=== PATIENT | male | born 1945 | race Caucasian/White ===

== ENCOUNTER 2017-10-25 15:00 | Inpatient (IN) | payer MEDICARE, MEDICAID ==
[~2017-10-25] VITALS: Ht 180.3 cm; Wt 76.0 kg
[~2017-10-25 15:00] MED LIST: AMLO5TAB2 PO; CLOP75TA PO; HYDR12.56 PO; HYDR1TAB66 PO; LSNP20T PO; MELO-195 PO; MTP50T PO; NF-ESOM40C PO; ONDA8TAB2 PO; PRD5T PO; SIMV40TA4 PO
--- OUTSIDE RECORDS SUMMARY | 2017-10-25 15:06 | XMS REPORT | Continuity of Care Document ---
Author Author [facility] Organization [facility] Address Unknown Phone Unavailable Allergies Medications Problems Procedures Results Encounters ACCT No. Visit Date/Time Discharge Status Pt. Type Provider Facility Loc./Unit Complaint [id number] 02/13/2014 14:33:00 2013 23:59:59 CLS Outpatient [id number] 11/07/2013 14:09:00 2012 23:59:59 CLS Outpatient [id number] 04/07/2013 11:46:00 2012 23:59:59 CLS Outpatient
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
[2017-10-25] MEDS ORDERED: morphine INJ 10 MG/ML 1ML (SYR OR VIAL) IM STA (18:27)
[2017-10-25] MEDS ORDERED: RT-ALBUTEROL/IPRATROPIUM 3 ML (DUONEB) VIAL INH ONE (18:30)
[2017-10-25] MEDS ORDERED: PRD20T PO (18:35)
[2017-10-25] MEDS ORDERED: HYDR-3820 PO ×2 (18:35→18:49)
[2017-10-25] MEDS ORDERED: ADENOSINE 6 MG/2 ML (ADENOCARD) VIAL IV ONE (18:52)
[2017-10-25] MEDS ORDERED: morphine INJ 10 MG/ML 1ML (SYR OR VIAL) IVP STA (18:58)
[2017-10-25] MEDS ORDERED: DILTIAZEM 25 MG/5 ML INJ (CARDIZEM) VIAL IVP ONE (19:00)
[2017-10-25] MEDS ORDERED: DILTIAZEM DRIP 100 MG in SODIUM CHLORIDE (ADD-VANTAGE) 100 ML IV SCH (19:00)
[2017-10-25] MEDS ORDERED: DILTIAZEM 100 MG/VIAL (CARDIZEM) ADD-VANTAGE IV ONE (19:01)
[2017-10-25] MEDS ORDERED: DILTIAZEM 25 MG/5 ML INJ (CARDIZEM) VIAL ONE (19:02)
[2017-10-25] MEDS ORDERED: SODIUM CHLORIDE (ADD-VANTAGE) 100 ML IV ONE (19:02)
[2017-10-25] MEDS ORDERED: NS IV 1000 ML 1,000 ML ONE (19:02)
[2017-10-25 19:07] LABS: BASOPHILS % (AUTO) 0 % (0-10); EOSINOPHILS # (AUTO) 0.1 10^3/uL (0.0-0.3); EOSINOPHILS % (AUTO) 1 % (0-10); LYMPHOCYTES # (AUTO) 0.9 X 10^3 (1.0-4.0); LYMPHOCYTES % (AUTO) 9 % (12-44); MEAN CORPUSCULAR HEMOGLOBIN 24 PG (25-34); MEAN CORPUSCULAR HGB CONC 31 G/DL (32-36); MEAN CORPUSCULAR VOLUME 79 FL (80-99); MEAN PLATELET VOLUME 10.7 FL (7.4-10.4); MONOCYTES # (AUTO) 0.4 X 10^3 (0.0-1.0); MONOCYTES % (AUTO) 4 % (0-12); NEUTROPHILS # (AUTO) 9.4 X 10^3 (1.8-7.8); NEUTROPHILS % (AUTO) 86 % (42-75); PLATELET COUNT 262 10^3/uL (130-400); RED BLOOD COUNT 4.84 10^6/uL (4.35-5.85); RED CELL DISTRIBUTION WIDTH 17.8 % (10.0-14.5); WHITE BLOOD COUNT 10.9 10^3/uL (4.3-11.0)
[2017-10-25 19:14] LABS: PROTHROMBIN TIME PATIENT 13.4 SEC (12.2-14.7)
[2017-10-25 19:21] LABS: BAND NEUTROPHILS 0 %; BASOPHILS % (MANUAL) 0 %; EOSINOPHILS % (MANUAL) 0 %; LYMPHOCYTES % (MANUAL) 18 %; NEUTROPHILS % (MANUAL) 81 %
[2017-10-25 19:37] LABS: ALANINE AMINOTRANSFERASE 20 U/L (0-55); ALBUMIN 3.3 GM/DL (3.2-4.5); ANION GAP 10 MMOL/L (5-14); ASPARTATE AMINO TRANSFERASE 23 U/L (5-34); BILIRUBIN,TOTAL 0.4 MG/DL (0.1-1.0); BLOOD UREA NITROGEN 11 MG/DL (7-18); BUN/CREATININE RATIO 17; CALCIUM 8.8 MG/DL (8.5-10.1); CARBON DIOXIDE 26 MMOL/L (21-32); CHLORIDE 105 MMOL/L (98-107); CREATINE KINASE 55 U/L (30-200); CREATININE SERUM 0.65 MG/DL (0.60-1.30); GFR ESTIMATED > 60; GLUCOSE 106 MG/DL (70-105); MAGNESIUM 1.6 MG/DL (1.8-2.4); POTASSIUM 4.2 MMOL/L (3.6-5.0); SODIUM 141 MMOL/L (135-145)
--- NOTE | 2017-10-25 19:52 | Diagnostic Imaging Report ---
Indication: Shortness of breath and cough. Comparison: 02/13/2014. Findings: The heart size is stable. There is venous congestion. There are bibasilar infiltrates. There is no pleural effusion or pneumothorax. Mediastinum is unremarkable. Impression: Bibasilar infiltrates, suspect for pneumonia. Mild central pulmonary venous congestion. Dictated by: Dictated on workstation # [id number]
[2017-10-25 21:45] VITALS: BP 117/63
[2017-10-25] MEDS ORDERED: DILTIAZEM DRIP 100 MG/NS 100 ML IV SCH ×2 (21:45)
[2017-10-25] MEDS ORDERED: morphine INJ 4 MG/ML 1 ML (VIAL/SYRINGE) IV PRN (21:45)
[2017-10-25 22:00] VITALS: BP 129/62
[2017-10-25 22:15] VITALS: BP 116/74
[2017-10-25 22:30] VITALS: BP 107/58
[2017-10-25] MEDS: MAGNESIUM 1 GM/100 ML IVPB 100 ML IV SCH ×2 (22:32→23:30)
[2017-10-25 22:45] VITALS: BP 132/63
[2017-10-25 23:00] VITALS: BP 98/50
[2017-10-26] VITALS (14 sets, daily range): BP systolic 105–177; BP diastolic 49–87
[2017-10-26 05:39] LABS: BASOPHILS # (AUTO) 0.1 10^3/uL (0.0-0.1); BASOPHILS % (AUTO) 1 % (0-10); EOSINOPHILS # (AUTO) 0.2 10^3/uL (0.0-0.3); EOSINOPHILS % (AUTO) 2 % (0-10); LYMPHOCYTES # (AUTO) 1.5 X 10^3 (1.0-4.0); LYMPHOCYTES % (AUTO) 18 % (12-44); MEAN CORPUSCULAR HEMOGLOBIN 24 PG (25-34); MEAN CORPUSCULAR HGB CONC 30 G/DL (32-36); MEAN CORPUSCULAR VOLUME 82 FL (80-99); MEAN PLATELET VOLUME 11.4 FL (7.4-10.4); MONOCYTES % (AUTO) 12 % (0-12); NEUTROPHILS # (AUTO) 5.7 X 10^3 (1.8-7.8); NEUTROPHILS % (AUTO) 67 % (42-75); PLATELET COUNT 234 10^3/uL (130-400); RED BLOOD COUNT 4.16 10^6/uL (4.35-5.85); RED CELL DISTRIBUTION WIDTH 17.7 % (10.0-14.5); WHITE BLOOD COUNT 8.5 10^3/uL (4.3-11.0)
[2017-10-26] MEDS ORDERED: KCL 20 MEQ TAB (K-DUR) PO SCH (06:00)
[2017-10-26] MEDS ORDERED: POTASSIUM CL 10MEQ/50ML IVPB 50 ML IV SCH (06:00)
[2017-10-26] MEDS ORDERED: MAGNESIUM 1 GM/100 ML IVPB 100 ML IV SCH (06:00)
[2017-10-26 06:02] LABS: ALANINE AMINOTRANSFERASE 16 U/L (0-55); ALBUMIN 2.9 GM/DL (3.2-4.5); ANION GAP 8 MMOL/L (5-14); ASPARTATE AMINO TRANSFERASE 18 U/L (5-34); BILIRUBIN,TOTAL 0.4 MG/DL (0.1-1.0); BLOOD UREA NITROGEN 10 MG/DL (7-18); BUN/CREATININE RATIO 15; CALCIUM 8.3 MG/DL (8.5-10.1); CARBON DIOXIDE 29 MMOL/L (21-32); CHLORIDE 108 MMOL/L (98-107); CHOLESTEROL 113 MG/DL (< 200); CREATININE SERUM 0.68 MG/DL (0.60-1.30); DIRECT LDL 56 MG/DL (1-129); GFR ESTIMATED > 60; GLUCOSE 123 MG/DL (70-105); MAGNESIUM 2.2 MG/DL (1.8-2.4); PHOSPHORUS 3.9 MG/DL (2.3-4.7); POTASSIUM 4.8 MMOL/L (3.6-5.0); SODIUM 145 MMOL/L (135-145); TRIGLYCERIDES 74 MG/DL (<150); VLDL CHOLESTEROL 15 MG/DL (5-40)
[2017-10-26] MEDS: NS IV 1000 ML 1,000 ML IV SCH ×3 (06:02→22:02)
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
[2017-10-26] MEDS: PANTOPRAZOLE 40 MG (PROTONIX) TAB PO SCH (06:36)
[2017-10-26] MEDS ORDERED: INFLUENZA TRIvalent 2017-2018 0.5 ML/45 MCG SYR IM ONE (07:15)
[2017-10-26] MEDS ORDERED: MELO15TA39 PO (07:32)
[2017-10-26] MEDS ORDERED: PRAV40TA2 PO (07:32)
[2017-10-26] MEDS ORDERED: LISI-552 PO (07:32)
[2017-10-26] MEDS ORDERED: PRED5TAB PO (07:32)
[2017-10-26] MEDS ORDERED: NF-ESOM40C PO (07:32)
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
[2017-10-26] MEDS ORDERED: CLOP75TA28 PO (08:22)
[2017-10-26] MEDS ORDERED: HYDR12.5 PO (08:22)
[2017-10-26] MEDS ORDERED: AMLO5TAB2 PO (08:22)
[2017-10-26] MEDS ORDERED: MORP-33 PO (08:22)
[2017-10-26] MEDS ORDERED: METO50TA15 PO (08:22)
[2017-10-26] MEDS ORDERED: IPRA4AER INH (08:22)
[2017-10-26] MEDS ORDERED: HYDR-3820 PO (08:22)
[2017-10-26] MEDS: APIXABAN 5 MG (ELIQUIS) TABLET PO SCH ×2 (09:15→21:08)
[2017-10-26] MEDS: HYDROcodone/APAP 10 MG/325 MG (LORTAB) TAB PO PRN ×2 (09:15→16:41)
--- NOTE | 2017-10-26 09:23 | Diagnostic Imaging Report ---
EXAMINATION: Portable upright radiograph of the chest. INDICATION: Atrial fibrillation. FINDINGS: The lungs appear clear of focal infiltrate. There is unchanged chronic appearing interstitial thickening. The heart size is normal. No significant effusion. No pneumothorax. The mediastinum and bella appear unremarkable. There is internal fixation hardware projecting over the mid upper chest, probably fixating the sternum. IMPRESSION: No acute process. Dictated by: Dictated on workstation # [id number]
[2017-10-26] MEDS ORDERED: IOHEXOL 350 MG/ML 100 ML (OMNIPAQUE 350) VIAL IV ONE (09:45)
[2017-10-26] MEDS ORDERED: NS 100 ML (IVPB) BAG IV ONE (09:45)
--- NOTE | 2017-10-26 11:58 | Consultation-Cardiology ---
HPI-Cardiology Cardiology Consultation: Date of Consultation 10/26/17 Date of Admission Attending Physician Genet Alvarado MD Admitting Physician No,Local Physician Consulting Physician Katherine KITCHEN MD HPI: Time Seen by Provider: 12:00 Chief Complaint: Atrial fibrillation This is a 72-year-old gentleman who does not have any known past cardiac history. He has history of rheumatoid arthritis. He went to his physician for medication refill and was found to be in atrial fibrillation with rapid ventricular rate. The patient denies any significant symptoms including palpitations, chest pain, shortness of breath, syncope or near syncope. He did complain of joint pains which is secondary to his rheumatoid arthritis. Review of Systems-Cardiology Review of Systems Constitutional: No As described under HPI, No no symptoms reported, No chills, No fever, No lightheadedness, No malaise, No tiredness, No weight loss, No weight gain, No other Eyes: No As described under HPI, No no symptoms reported, No blindness, No blurred vision, No contact lenses, No drainage, No decreased acuity, No foreign body sensation, No glasses, No inflammation, No pain, No photophobia, No previous injury, No shadows, No tunnel vision, No other, No vision change Ears/Nose/Throat: No As described under HPI, No no symptoms reported, No chronic hearing loss, No epistaxis, No ear discharge, No ear pain, No loose teeth, No mouth pain, No mouth swelling, No nasal drainage, No nose pain, No recent hearing loss, No throat pain, No throat swelling, No ulcerations, No other Respiratory: No no symptoms reported, No As described under HPI, No cough, No orthopnea, No shortness of breath, No SOB with excertion, No SOB at rest, No stridor, No wheezing, No other Cardiovascular: irregular heart rate Gastrointestinal: No no symptoms reported, No As described under HPI, No abdomen distended, No abdominal pain, No blood streaked bowels, No constipation , No diarrhea, No difficulty swallowing, No nausea, No poor appetite, No poor fluid intake, No rectal bleeding, No vomiting, No other, No nausea/vomiting/ diarrhea, No stool coloration changes Genitourinary: No no symptoms reported, No As described under HPI, No burning, No dysuria, No discharge, No frequency, No flank pain, No hematuria, No incontinence, No pain, No urgency, No other, No urine frequency changes, No urine coloration changes Musculoskeletal: joint pain Skin: No no symptoms reported, No As described under HPI, No change in color, No change in hair/nails, No dryness, No lesions, No lumps, No rash, No other, No skin related problems, No ulcerations, No rash on exposed areas, No ulcerations on exposed areas Psychiatric/Neurological: No no symptoms reported, No As described under HPI, No anxiety, No depression, No emotional problems, No headache, No numbness, No pre-existing deficit, No seizure, No tingling, No tremors, No weakness, No other , No focal weakness, No syncope Hematologic: No no symptoms reported, No As described under HPI, No anemia, No blood clots, No easy bleeding, No easy bruising, No swollen glands, No other, No bleeding abnormalities All Other Systems Reviewed Negative Unless Noted: Yes (Negative excepted noted.) YJE-Raomzk-Inpmcg Hx Patient Social History Alcohol Use: Denies Use Recreational Drug Use: No Smoking Status: Current Everyday Smoker Type Used: Cigarettes Recent Foreign Travel: No Recent Infectious Disease Expo: No Hospitalization with Isolation: Denies Physical Abuse Screen: No Sexual Abuse: No Immunizations Up To Date Tetanus Booster (TDap): Unknown Past Medical History PMH As described under Assessment. Allergies and Home Medications Allergies Coded Allergies: No Known Drug Allergies (Unverified , 02/13/13) Home Medications Albuterol/Ipratropium 4 Gm Aero, 1 PUFF INH QID PRN for SHORTNESS OF BREATH, ( Reported) Amlodipine Besylate 5 Mg Tablet, 5 MG PO DAILY, (Reported) LAST FILLED #90 07-05-17 Clopidogrel Bisulfate 75 Mg Tablet, 75 MG PO DAILY, (Reported) LAST FILLED #90 07-05-17 Esomeprazole Magnesium 40 Mg Cap, 40 MG PO DAILY, (Reported) Hydrochlorothiazide 12.5 Mg Capsule, 12.5 MG PO DAILY, (Reported) LAST FILLED #90 07-09-17 Hydrocodone/Acetaminophen 1 Each Tablet, 1 TAB PO TID PRN for PAIN-MODERATE, ( Reported) LAST FILLED #90 08-30-17 Lisinopril 20 Mg Tablet, 20 MG PO DAILY, (Reported) Meloxicam 15 Mg Tablet, 15 MG PO DAILY, (Reported) Metoprolol Tartrate 50 Mg Tablet, 50 MG PO BID, (Reported) LAST FILLED #180 07-12-17 Morphine Sulfate 15 Mg Tablet.er, 15 MG PO BID, (Reported) LAST FILLED #60 08-31-17 Pravastatin Sodium 40 Mg Tablet, 40 MG PO DAILY, (Reported) Prednisone 5 Mg Tablet, 5 MG PO DAILY, (Reported) Physical Exam-Cardiology Physical Exam Vital Signs/I&O Vital Sign - Last 12Hours 10/26/17 10/26/17 10/26/17 10/26/17 02:00 03:00 04:00 04:00 Temp 97.9 Pulse 56 61 Resp 15 13 B/P (MAP) 111/60 (77) 106/52 (70) Pulse Ox 94 94 97 O2 Delivery Nasal Cannula Nasal Cannula Nasal Cannula O2 Flow Rate 3.00 3.00 3.00 10/26/17 10/26/17 10/26/17 10/26/17 04:00 05:00 06:00 07:00 Pulse 61 64 60 60 Resp 18 17 16 B/P (MAP) 116/62 (80) 120/66 (84) 116/72 (87) Pulse Ox 94 94 95 O2 Delivery Nasal Cannula Nasal Cannula Nasal Cannula O2 Flow Rate 3.00 3.00 3.00 10/26/17 10/26/17 10/26/17 10/26/17 07:00 08:00 08:00 09:00 Pulse 64 67 69 Resp 19 15 14 B/P (MAP) 123/84 (97) 129/74 (92) 153/79 (103) Pulse Ox 94 97 95 94 O2 Delivery Nasal Cannula Nasal Cannula Nasal Cannula Nasal Cannula O2 Flow Rate 3.00 3.00 3.00 3.00 10/26/17 10/26/17 10/26/17 09:50 09:50 09:55 Temp 96.0 96.0 Pulse 85 Resp 22 B/P (MAP) 166/87 (113) Pulse Ox 97 95 O2 Delivery Nasal Cannula Nasal Cannula O2 Flow Rate 3.00 3.00 Intake and Output 10/26/17 00:00 Intake Total 1200 ml Balance 1200 ml Capillary Refill : Less Than 3 Seconds Constitutional: No appears stated age, No AAO x 3, No apparent distress, No PERRL, No well-developed, No well-nourished, No other HEENT: No PERRL, No normal ENT inspection, No TMs normal, No pharynx normal, No scleral icterus (R), No scleral icterus (L), No pale conjunctivae (R), No pale conjunctivae (L), No photophobia, No TM abnormal (R), No TM abnormal (L), No pharyngeal erythema, No tonsillar exudate, No other, No discharge, No EOMI, No hearing is well preserved, No hard of hearing, No oral hygience is good, No ulceration, No xanthelasmas are seen Neck: No non-tender, No full range of motion, No supple, No normal inspection, No carotid bruit, No limited range of motion, No lymphadenopathy (R), No lymphadenopathy (L), No tender lateral, No tender midline, No thyromegaly, No other, No carotid pulses are 2 + bilaterally, No with good upstrokes Respiratory: No accessory muscle use, No respiratory distress, No chest tender , No chest expansion is symmetric, No chest is bilaterally symmetric, No lungs clear to percussion, No lungs clear to auscultation, No crackles, No rhonchi, No rales, No stridor, No wheezing, No pleural rub, No other Cardiovascular: regular rate-rhythm, S1 and S2 Gastrointestinal: No tender, No soft, No round, No distended, No pulsatile mass , No organomegaly, No guarding, No rebound, No tenderness, No hernia, No mass, No audible bowel sounds, No abnormal bowel sounds, No abdominal bruits, No spleenomegaly, No other Rectal: deferred Extremities: No normal range of motion, No non-tender, No normal inspection, No pedal edema, No calf tenderness, No normal capillary refill, No pelvis stable , No calf tenderness, No inflammation, No pedal edema, No slow capillary refill , No swelling, No other, No abrasion, No clubbing, No cyanosis, No ecchymosis, No laceration, No no lower extremity edema bilateral, No significant edema, No tenderness, No wound Neurologic/Psychiatric: No sausage grinder II-XII nml as tested, No no motor/sensory deficits, No alert, No normal mood/affect, No oriented x 3, No abnormal cerebellar tests, No abnormal sausage grinder II-XII, No abnormal gait, No aphasia, No EOM palsy, No facial droop, No motor weakness, No sensory deficit, No depressed affect, No disoriented x 3, No other, No grossly intact, No power is 5/5 both on sides Skin: No normal color, No warm/dry, No cyanosis, No cool, No diaphoresis, No damp, No ecchymosis, No jaundice, No mottled, No pallor, No rash, No tattoos/ piercings, No ulcerations, No rash on exposed areas, No ulcerations on exposed areas, No other Data Review Labs Laboratory Tests 10/25/17 18:57: White Blood Count 10.9, Red Blood Count 4.84, Hemoglobin 11.7L, Hematocrit 38L, Mean Corpuscular Volume 79L, Mean Corpuscular Hemoglobin 24L, Mean Corpuscular Hemoglobin Concent 31L, Red Cell Distribution Width 17.8H, Platelet Count 262, Mean Platelet Volume 10.7H, Neutrophils (%) (Auto) 86H, Lymphocytes (%) (Auto) 9L, Monocytes (%) (Auto) 4, Eosinophils (%) (Auto) 1, Basophils (%) (Auto) 0, Neutrophils # (Auto) 9.4H, Lymphocytes # (Auto) 0.9L, Monocytes # (Auto) 0.4, Eosinophils # (Auto) 0.1, Basophils # (Auto) 0.0, Neutrophils % (Manual) 81, Lymphocytes % (Manual) 18, Monocytes % (Manual) 1, Eosinophils % (Manual) 0, Basophils % (Manual) 0, Band Neutrophils 0, Blood Morphology Comment NORMAL, Prothrombin Time 13.4, INR Comment 1.0, Activated Partial Thromboplast Time 30, Sodium Level 141, Potassium Level 4.2, Chloride Level 105, Carbon Dioxide Level 26, Anion Gap 10, Blood Urea Nitrogen 11, Creatinine 0.65, Estimat Glomerular Filtration Rate > 60, BUN/Creatinine Ratio 17, Glucose Level 106H, Calcium Level 8.8, Magnesium Level 1.6L, Total Bilirubin 0.4, Aspartate Amino Transf ( AST/SGOT) 23, Alanine Aminotransferase (ALT/SGPT) 20, Alkaline Phosphatase 48, Total Creatine Kinase 55, Creatine Kinase MB 1.6, Myoglobin 25.0, Troponin I < 0.30, Total Protein 7.0, Albumin 3.3 10/26/17 00:55: Troponin I < 0.30 10/26/17 05:00: White Blood Count 8.5, Red Blood Count 4.16L, Hemoglobin 10.1L, Hematocrit 34L, Mean Corpuscular Volume 82, Mean Corpuscular Hemoglobin 24L, Mean Corpuscular Hemoglobin Concent 30L, Red Cell Distribution Width 17.7H, Platelet Count 234, Mean Platelet Volume 11.4H, Neutrophils (%) (Auto) 67, Lymphocytes (%) (Auto) 18 , Monocytes (%) (Auto) 12, Eosinophils (%) (Auto) 2, Basophils (%) (Auto) 1, Neutrophils # (Auto) 5.7, Lymphocytes # (Auto) 1.5, Monocytes # (Auto) 1.0, Eosinophils # (Auto) 0.2, Basophils # (Auto) 0.1, Sodium Level 145, Potassium Level 4.8, Chloride Level 108H, Carbon Dioxide Level 29, Anion Gap 8, Blood Urea Nitrogen 10, Creatinine 0.68, Estimat Glomerular Filtration Rate > 60, BUN/ Creatinine Ratio 15, Glucose Level 123H, Calcium Level 8.3L, Magnesium Level 2.2 , Total Bilirubin 0.4, Aspartate Amino Transf (AST/SGOT) 18, Alanine Aminotransferase (ALT/SGPT) 16, Alkaline Phosphatase 42, Total Protein 6.0L, Albumin 2.9L, Phosphorus Level 3.9, Triglycerides Level 74, Cholesterol Level 113, LDL Cholesterol Direct 56, VLDL Cholesterol 15, HDL Cholesterol 35L ECG Impression ECG Initial ECG Impression: Atrial Fibrillation w/RVR A/P-Cardiology Assessment/Admission Diagnosis Atrial fibrillation with rapid ventricular rate. Rheumatoid arthritis Plan Eliquis started for stroke prevention. Cardizem given for rate control. Patient spontaneously converted to sinus rhythm. However EKG has not been done to confirm. However telemetry shows sinus rhythm. Echocardiogram pending. Rheumatoid arthritis: Deferred to primary team. Hypomagnesemia: IV medication being given. Thank you for your consultation. Please call me if you have any questions. Tamia Kitchen MD, FACP, FACC, FSCAI, FHRS, CCDS Interventional Cardiology Cardiac Electrophysiology Vascular Medicine and Endovascular Interventions Clinical Quality Measures DVT/VTE Risk/Contraindication: Risk Factor Score Per Nursin RFS Level Per Nursing on Admit: 3=High Katherine KITCHEN MD Oct 26, 2017 11:58 am
--- NOTE | 2017-10-26 12:29 | Diagnostic Imaging Report ---
PROCEDURE: CT chest with contrast only. TECHNIQUE: Multiple contiguous axial images were obtained through the chest after administration of intravenous contrast. INDICATION: Difficulty breathing. CONTRAST: 75 mL of Omnipaque 350 was administered intravenously. COMPARISON: 12/21/2012. FINDINGS: There is interstitial septal thickening seen, a minimal amount of fluid in the fissures, and a very minimal right pleural effusion, probably secondary to vascular congestion. There are background upper lobe predominant emphysematous changes. Right perihilar scarring is noted. There is a right upper lobe pulmonary nodule seen anteriorly at the level of the pulmonary trunk measuring 1.9 x 1.3 x 1.4 cm, new from the prior exam. There is also an irregular nodule in the anterior aspect of the right lung apex measuring 1.5 x 2.2 cm, also new from the previous exam. Pleural/parenchymal thickening in the lung apices posteriorly is again seen, minimally more prominent compared to the previous study. Scattered areas of scarring are also noted. There is a stable right paratracheal lymph node measuring 1.1 cm in size and a 1.4 cm intracarinal lymph node, also similar to the previous exam, with no definitive pathologic new lymphadenopathy seen. No axillary or hilar significantly enlarged lymph nodes are noted. The heart size is normal. No pericardial effusion. There are prominent coronary artery atherosclerotic calcifications seen. There is mild aneurysmal dilatation of the ascending aorta measuring 4 cm compared to 3.9 cm in 2013. No adrenal nodule is seen. Cholecystectomy clips are noted. The osseous structures demonstrate scoliosis around the upper lumbar spine level convex to the right with no suspicious destructive mass. IMPRESSION: 1. New nodules in the left upper lobe at the pulmonary trunk level and in the right lung apex anteriorly, concerning for early malignancy. The right apex nodule could be related to scarring. Evaluation with a PET/CT is recommended. 2. Upper lobe predominant emphysema. 3. Suggestion of mild interstitial pulmonary edema. 4. The findings were conveyed to Dr. Juarez at the time of dictation. Dictated by: Dictated on workstation # [id number]
[2017-10-26] MEDS ORDERED: CATHETER FLUSH 10 ML SYR IV PRN (13:30)
[2017-10-26] MEDS: meTOprolol TARTRATE 50 MG (LOPRESSOR) TAB PO SCH (21:08)
[2017-10-27] VITALS: BP 145/66
[2017-10-27] MEDS: HYDROcodone/APAP 10 MG/325 MG (LORTAB) TAB PO PRN ×2 (00:48→13:13)
[2017-10-27] MEDS ORDERED: RT-ALBUTEROL/IPRATROPIUM 3 ML (DUONEB) VIAL ONE (02:19)
[2017-10-27 04:00] VITALS: BP 157/87
[2017-10-27 05:31] LABS: BASOPHILS % (AUTO) 0 % (0-10); EOSINOPHILS # (AUTO) 0.3 10^3/uL (0.0-0.3); EOSINOPHILS % (AUTO) 3 % (0-10); LYMPHOCYTES # (AUTO) 1.2 X 10^3 (1.0-4.0); LYMPHOCYTES % (AUTO) 13 % (12-44); MEAN CORPUSCULAR HEMOGLOBIN 24 PG (25-34); MEAN CORPUSCULAR HGB CONC 28 G/DL (32-36); MEAN CORPUSCULAR VOLUME 84 FL (80-99); MEAN PLATELET VOLUME 10.7 FL (7.4-10.4); MONOCYTES # (AUTO) 0.9 X 10^3 (0.0-1.0); MONOCYTES % (AUTO) 9 % (0-12); NEUTROPHILS # (AUTO) 7.1 X 10^3 (1.8-7.8); NEUTROPHILS % (AUTO) 74 % (42-75); PLATELET COUNT 228 10^3/uL (130-400); RED CELL DISTRIBUTION WIDTH 17.6 % (10.0-14.5); WHITE BLOOD COUNT 9.5 10^3/uL (4.3-11.0)
[2017-10-27 05:50] LABS: ANION GAP 6 MMOL/L (5-14); BLOOD UREA NITROGEN 3 MG/DL (7-18); BUN/CREATININE RATIO 5; CALCIUM 7.7 MG/DL (8.5-10.1); CARBON DIOXIDE 29 MMOL/L (21-32); CHLORIDE 107 MMOL/L (98-107); CREATININE SERUM 0.55 MG/DL (0.60-1.30); GFR ESTIMATED > 60; GLUCOSE 110 MG/DL (70-105); MAGNESIUM 1.6 MG/DL (1.8-2.4); PHOSPHORUS 2.8 MG/DL (2.3-4.7); POTASSIUM 4.1 MMOL/L (3.6-5.0); SODIUM 142 MMOL/L (135-145)
[2017-10-27] MEDS: PANTOPRAZOLE 40 MG (PROTONIX) TAB PO SCH (06:12)
[2017-10-27] MEDS: NS IV 1000 ML 1,000 ML IV SCH (06:12)
[2017-10-27] MEDS ORDERED: RT-LEVALBUTEROL (XOPENEX) 1.25 MG/3 ML NEB NON-FORMULARY INH PRN (07:15)
--- NOTE | 2017-10-27 07:27 | Pulmonary Progress Note ---
Subjective Time Seen by Provider: 07:24 Subjective/Events-last exam No complications noted. Exam Exam Vital Signs Date Time Temp Pulse Resp B/P (MAP) Pulse Ox O2 Delivery O2 Flow Rate FiO2 10/27/17 04:00 98.4 84 19 157/87 (110) 97 Nasal Cannula 3.00 10/27/17 03:08 85 95 32 10/27/17 02:29 95 Nasal Cannula 3.00 10/27/17 01:00 75 10/27/17 00:00 98.3 81 22 145/66 (92) 94 Nasal Cannula 3.00 10/26/17 20:55 97.8 81 22 164/82 (109) 93 Nasal Cannula 3.00 10/26/17 20:00 Nasal Cannula 3.00 10/26/17 19:00 89 10/26/17 17:12 96.4 10/26/17 16:54 96.4 80 24 177/77 (110) 95 Nasal Cannula 3.00 10/26/17 16:41 98.2 10/26/17 12:00 98.2 76 24 160/80 (106) 95 Nasal Cannula 3.00 10/26/17 09:50 96.0 85 22 166/87 (113) 95 Nasal Cannula 3.00 10/26/17 09:50 97 Nasal Cannula 3.00 10/26/17 09:00 69 14 153/79 (103) 94 Nasal Cannula 3.00 10/26/17 08:00 67 15 129/74 (92) 95 Nasal Cannula 3.00 10/26/17 08:00 97 Nasal Cannula 3.00 I & O 10/27/17 07:00 Intake Total 3668 ml Output Total 525 ml Balance 3143 ml General Appearance: No Apparent Distress, Chronically ill HEENT: PERRL/EOMI, Pharynx Normal Neck: Normal Inspection, Supple Respiratory: Crackles, Decreased Breath Sounds, Respiratory Distress (patient is noted to be mildly SOA on exam (patient continues to deny SOA). States he has an inhaler and neb tx's at home, but did not bring the inhaler with him. Denies previous dx of COPD, but does have a long h/o smoking.), Rhonci, Wheezing Cardiovascular: No Edema, No Murmur, Normal Peripheral Pulses, Tachycardia Capillary Refill: Less Than 3 Seconds Gastrointestinal: non tender, soft, no organomegaly, no pulsatile mass Extremity: Normal Capillary Refill, Other (bilateral hands TTP without ecchymosis. enlargement of the MCP joints and PIP joints of the bilateral hands without ecchymosis or erythema. TTP bilaterally. Limited range of motion of the bilateral hands noted.) Neurologic/Psychiatric: Alert, Oriented x3, No Motor/Sensory Deficits, Normal Mood/Affect Skin: Normal Color, Warm/Dry Results Lab Laboratory Tests 10/25/17 18:57 10/26/17 05:00 10/27/17 05:20 Assessment/Plan Assessment/Plan Lung Mass r/o cancer -Check out patient PET scan -Pt is on eliquis for Afib COPD hx - currently baseline -Continue SVNS -evaluate for home oxygen Bilateral pulmonary infiltrates probably chronic ILD doubt pneumonia -No Abx needed at this time Afib -cardiology consulted -Albuterol txs seem to put pt in afib Current tobacco use -education Arthritis/chronic pain Anemia -Monitor Labs and radiology reviewed. I will have RN make pt an appt in my office for 1- 2wks. 233 Clinical Quality Measures DVT/VTE Risk/Contraindication: Risk Factor Score Per Nursin RFS Level Per Nursing on Admit: 3=High TAVO GUALLPA DO Oct 27, 2017 07:27
[2017-10-27 07:54] VITALS: BP 152/76
[2017-10-27] MEDS: meTOprolol TARTRATE 50 MG (LOPRESSOR) TAB PO SCH (08:41)
[2017-10-27] MEDS: APIXABAN 5 MG (ELIQUIS) TABLET PO SCH (08:41)
--- NOTE | 2017-10-27 08:56 | Diagnostic Imaging Report ---
INDICATION: Atrial fibrillation and COPD. PA chest obtained at 4:55 a.m. and compared with yesterday. FINDINGS: The heart is normal in size. There is hyperinflation compatible with COPD. There is increasing bibasilar infiltrate. There is no pneumothorax or pleural fluid. IMPRESSION: Underlying COPD changes. Increasing bibasilar infiltrates compared to the prior study of yesterday. Dictated by: Dictated on workstation # [id number]
[2017-10-27] MEDS ORDERED: lisINopril 20 MG (ZESTRIL) TAB PO SCH (09:00)
[2017-10-27] MEDS ORDERED: DILTIAZEM 120 MG (CARDIZEM CD) CAP PO SCH (09:00)
[2017-10-27] MEDS ORDERED: RT-LEVALBUTEROL (XOPENEX) 1.25 MG/3 ML NEB NON-FORMULARY INH SCH (09:00)
[2017-10-27] MEDS ORDERED: PRED10TA22 PO (09:45)
[2017-10-27] MEDS ORDERED: MORP-33 PO (09:45)
[2017-10-27] MEDS ORDERED: APIX5TAB PO (09:45)
[2017-10-27] MEDS ORDERED: HYDR-3820 PO (09:45)
[2017-10-27] MEDS ORDERED: INFLUENZA TRIvalent 2017-2018 0.5 ML/45 MCG SYR IM ONE (11:31)
[2017-10-27 12:00] VITALS: BP 154/79
--- NOTE | 2017-10-27 12:02 | Cardiology Progress Note ---
Cardiology SOAP Progress Note Subjective: Mild shortness of breath. Objective: I&O/Vital Signs Vital Sign - Last 12Hours 10/27/17 10/27/17 10/27/17 10/27/17 01:00 02:29 03:08 04:00 Temp 98.4 Pulse 75 85 84 Resp 19 B/P (MAP) 157/87 (110) Pulse Ox 95 95 97 O2 Delivery Nasal Cannula Nasal Cannula O2 Flow Rate 3.00 3.00 FiO2 32 10/27/17 10/27/17 10/27/17 07:54 08:00 09:17 Temp 98.4 Pulse 78 Resp 22 B/P (MAP) 152/76 (101) Pulse Ox 91 77 O2 Delivery High Flow N/C Nasal Cannula Room Air O2 Flow Rate 3.00 3.00 Intake and Output 10/27/17 00:00 Intake Total 2568 ml Output Total 525 ml Balance 2043 ml Weight (Pounds): 167 Weight (Ounces): 8.0 Weight (Calculated Kilograms): [id number] Constitutional: No appears stated age, No AAO x 3, No apparent distress, No PERRL, No well-developed, No well-nourished, No other Respiratory: No accessory muscle use, No respiratory distress, No chest tender , No chest expansion is symmetric, No chest is bilaterally symmetric, No lungs clear to percussion, No lungs clear to auscultation, No crackles, No rhonchi, No rales, No stridor, No wheezing, No pleural rub, other (coarse bilateral breathing) Cardiovascular: regular rate-rhythm, S1 and S2 Gastrointestional: No tender, No soft, No round, No distended, No pulsatile mass, No organomegaly, No guarding, No rebound, No tenderness, No hernia, No mass, No audible bowel sounds, No abnormal bowel sounds, No abdominal bruits, No spleenomegaly, No other Extremities: No normal range of motion, No non-tender, No normal inspection, No pedal edema, No calf tenderness, No normal capillary refill, No pelvis stable , No calf tenderness, No inflammation, No pedal edema, No slow capillary refill , No swelling, No other, No abrasion, No clubbing, No cyanosis, No ecchymosis, No laceration, No no lower extremity edema bilateral, No significant edema, No tenderness, No wound Neurologic/Psychiatric: No retirement sales consultant II-XII nml as tested, No no motor/sensory deficits, No alert, No normal mood/affect, No oriented x 3, No abnormal cerebellar tests, No abnormal retirement sales consultant II-XII, No abnormal gait, No aphasia, No EOM palsy, No facial droop, No motor weakness, No sensory deficit, No depressed affect, No disoriented x 3, No other, No grossly intact, No power is 5/5 both on sides Skin: No normal color, No warm/dry, No cyanosis, No cool, No diaphoresis, No damp, No ecchymosis, No jaundice, No mottled, No pallor, No rash, No tattoos/ piercings, No ulcerations, No rash on exposed areas, No ulcerations on exposed areas, No other Results/Procedures: Labs Laboratory Tests 10/27/17 05:20: White Blood Count 9.5, Red Blood Count 4.20L, Hemoglobin 10.0L, Hematocrit 35L, Mean Corpuscular Volume 84, Mean Corpuscular Hemoglobin 24L, Mean Corpuscular Hemoglobin Concent 28L, Red Cell Distribution Width 17.6H, Platelet Count 228, Mean Platelet Volume 10.7H, Neutrophils (%) (Auto) 74, Lymphocytes (%) (Auto) 13 , Monocytes (%) (Auto) 9, Eosinophils (%) (Auto) 3, Basophils (%) (Auto) 0, Neutrophils # (Auto) 7.1, Lymphocytes # (Auto) 1.2, Monocytes # (Auto) 0.9, Eosinophils # (Auto) 0.3, Basophils # (Auto) 0.0, Sodium Level 142, Potassium Level 4.1, Chloride Level 107, Carbon Dioxide Level 29, Anion Gap 6, Blood Urea Nitrogen 3L, Creatinine 0.55L, Estimat Glomerular Filtration Rate > 60, BUN/ Creatinine Ratio 5, Glucose Level 110H, Calcium Level 7.7L, Phosphorus Level 2.8 , Magnesium Level 1.6L Microbiology 10/25/17 MRSA Screen - Final, Complete MRSA not isolated A/P: Assessment/Dx: Atrial fibrillation with rapid ventricular rate. Rheumatoid arthritis. Shortness of breath. Possible COPD Plan: Eliquis started for stroke prevention. Cardizem given for rate control. Patient spontaneously converted to sinus rhythm. Echocardiogram showed normal LVEF. Rheumatoid arthritis: Deferred to primary team. Hypomagnesemia: IV medication being given. Shortness of breath/COPD: Defer to primary team. However to complete his evaluation he may require nuclear stress test as an outpatient. I will follow-up as an outpatient in one to 2 weeks. Thank you for your consultation. Please call me if you have any questions. Tamia Kitchen MD, FACP, FACC, FSCAI, FHRS, CCDS Interventional Cardiology Cardiac Electrophysiology Vascular Medicine and Endovascular Interventions Katherine KITCHEN MD Oct 27, 2017 12:02
[2017-10-27 13:55] VITALS: BP 154/79
--- NOTE | 2017-10-27 15:16 | Discharge Summary-Hospitalist ---
Diagnosis/Chief Complaint Date of Admission Oct 25, 2017 at 20:15 Date of Discharge Oct 27, 2017 at 13:55 Admission Diagnosis a-fib with RVR Discharge Diagnosis (1) Atrial fibrillation with RVR Status: Acute Assessment & Plan: New onset Cardiology consulted appreciate recs Converted after cardizem started in ER [id number] score is 2- on Eliquis Echo revealed normal EF with grade 1 diastolic dysfunction and no visualized valvular abnormalities (2) Hypomagnesemia Assessment & Plan: Replaced on protocol (3) Normocytic anemia Assessment & Plan: Mild, at baseline Trend (4) Rheumatoid arthritis Assessment & Plan: Resume home pain meds Has appt for 11/17 with [facility], will provide pain meds to get through that visit (5) COPD (chronic obstructive pulmonary disease) Status: Acute Assessment & Plan: No home oxygen requirement MAT protocol No signs of acute exacerbation Will send home on Xopenex Q6 prn as albuterol precipitated a-fib (6) Chronic pain Status: Acute Assessment & Plan: On chronic narcotics Will resume home dose (7) Tobacco dependence Assessment & Plan: Recommended cessation (8) Lung nodule Assessment & Plan: Noted on CT Will follow up with Dr Juarez for outpatient PET I informed patient of the need to follow up for further evaluation (9) Prophylactic measure Assessment & Plan: Eliquis Saline lock Reg Diet Discharge Summary Consultations Cardiology- Dr Kitchen Discharge Physical Examination Allergies: Coded Allergies: No Known Drug Allergies (Unverified , 02/13/13) Vitals & I&Os Vital Signs Date Time Temp Pulse Resp B/P (MAP) Pulse Ox O2 Delivery O2 Flow Rate FiO2 10/27/17 13:55 80 20 154/79 93 High Flow N/C 5.00 10/27/17 13:44 98.2 10/27/17 03:08 32 Hospital Course Pt is a 72yoCM with a h/o COPD, RA who presented to the ER due to hand pain from his RA. He has been out of his pain medicines since his doctor quit practicing. He was given an albuterol treatment and went in to a-fib with RVR. He was admitted for a-fib and started on cardizem gtt. He quickly converted to sinus rhythm and was started on Eliquis for stroke ppx. He was continued on Metoprolol and Lisinopril and Cardizem was added for further rate control. After discharge I was called by pharmacy as his Eliquis was not covered. Patient did not wait at pharmacy for resolution. Xarelto was also not covered. I arranged for sample to be obtained through Dr. Kitchen's office. I attempted to call the patient multiple time on 10/27/17 and 10/28/17 leaving voicemails with no response. I also called his SKIL worker who has also not responded to my voicemails. I called the pharmacy to obtain any other numbers and they had one other on file which was disconnected when I attempted to call. I ultimately called the SKIL office to assist with contacting patient to pickers material handlers his samples and they reported that the SKIL worker's phone had been out and they would " tell him when they see him." At this time I have referred this to for assistance in facilitating a welfare check as our extensive efforts to contact him have been to no avail. Labs (last 24 hrs) Microbiology 10/25/17 MRSA Screen - Final, Complete MRSA not isolated Discharge Home Medications: Active Scripts Active Xopenex (Levalbuterol HCl) 1.25 Mg/3 Ml Vial.neb 1.25 Mg IH Q6H 30 Days Prednisone 10 Mg Tab.ds.pk 10 Mg PO DAILY Take 6 tabs(60mg)daily,decrease by 1 tab(10mg)every other day. Eliquis (Apixaban) 5 Mg Tablet 5 Mg PO BID Hydrocodon-Acetaminophn 10-325 (Hydrocodone/Acetaminophen) 1 Each Tablet 1 Tab PO TID PRN LAST FILLED #90 08-30-17 Morphine Sulfate ER (Morphine Sulfate) 15 Mg Tablet.er 15 Mg PO BID LAST FILLED #60 08-31-17 Reported Combivent Respimat Inhal [place] (Albuterol/Ipratropium) 4 Gm Aero 1 Puff INH QID PRN Metoprolol Tartrate 50 Mg Tablet 50 Mg PO BID LAST FILLED #180 07-12-17 Lisinopril 20 Mg Tablet 20 Mg PO DAILY Nexium (Esomeprazole Magnesium) 40 Mg Cap 40 Mg PO DAILY Meloxicam 15 Mg Tablet 15 Mg PO DAILY Pravastatin Sodium 40 Mg Tablet 40 Mg PO DAILY Instructions to patient/family Please see electronic discharge instructions given to patient. Clinical Quality Measures AMI/AHF: Ejection Fraction: Normal LVSF D/C Medications Addressed: Rico inhibitors, Beta gus DVT/VTE Risk/Contraindication: Risk Factor Score Per Nursin RFS Level Per Nursing on Admit: 3=High Problem Qualifiers (1) Rheumatoid arthritis: Rheumatoid arthritis location: hand Rheumatoid factor presence: unspecified presence Laterality: bilateral Qualified Codes: M06.9 - Rheumatoid arthritis , unspecified (2) COPD (chronic obstructive pulmonary disease): COPD type: unspecified COPD Qualified Codes: J44.9 - Chronic obstructive pulmonary disease, unspecified ROGER ROBBINS MD Oct 27, 2017 15:16
[2017-10-28] MEDS ORDERED: LEVA1.2527 IH ×2 (07:38→09:51)
[2017-10-28] MEDS ORDERED: DILT120C82 PO (10:16)
== END 2017-10-27 13:55 | disposition home or self-care (01) | DRG 309 ==
LOC: EDUNIT# 15:00 → ER 15:02 → ICU 20:15 → 4TH 10-26 09:35
PROVIDERS: ADMIT Family Medicine; ATTEND Family Medicine
DX: I48.91 Unspecified atrial fibrillation (principal); R91.8 Other nonspecific abnormal finding of lung field; J43.9 Emphysema, unspecified; J84.9 Interstitial pulmonary disease, unspecified; M06.9 Rheumatoid arthritis, unspecified; G89.29 Other chronic pain; Z23 Encounter for immunization; F17.210 Nicotine dependence, cigarettes, uncomplicated; D64.9 Anemia, unspecified; E83.42 Hypomagnesemia; Z79.01 Long term (current) use of anticoagulants; Z79.891 Long term (current) use of opiate analgesic
CPT/HCPCS: 36415; 71010; 71260; 80048; 80053; 80061; 82550; 82553; 83735; 83874; 84100; 84484; 85007; 85025; 85027; 85610; 85730; 87081; 93005; 93041; 93306; 94640; 94760

== ENCOUNTER 2018-01-10 14:56 | Inpatient (IN) | payer MEDICARE, MEDICAID ==
[~2018-01-10] VITALS: Ht 177.8 cm; Wt 65.9 kg
[2018-01-10] VITALS (7 sets, daily range): BP systolic 112–138; BP diastolic 62–77
[~2018-01-10 14:56] MED LIST changes: +APIX5TAB PO; +CLOP75TA28 PO; +DILT120C82 PO; +HYDR-3820 PO; +HYDR12.5 PO; +IPRA4AER INH; +LEVA1.2527 IH; +LISI-552 PO; +MELO15TA39 PO; +METO50TA15 PO; +MORP-33 PO; +PRAV40TA2 PO; +PRD20T PO; +PRED10TA22 PO; +PRED5TAB PO
[2018-01-10 15:42] LABS: BASOPHILS # (AUTO) 0.1 10^3/uL (0.0-0.1); BASOPHILS % (AUTO) 0 % (0-10); EOSINOPHILS % (AUTO) 0 % (0-10); HEMATOCRIT 32 % (40-54); HEMOGLOBIN 10.1 G/DL (13.3-17.7); LYMPHOCYTES # (AUTO) 1.5 X 10^3 (1.0-4.0); LYMPHOCYTES % (AUTO) 4 % (12-44); MEAN CORPUSCULAR HEMOGLOBIN 24 PG (25-34); MEAN CORPUSCULAR HGB CONC 32 G/DL (32-36); MEAN CORPUSCULAR VOLUME 77 FL (80-99); MEAN PLATELET VOLUME 10.1 FL (7.4-10.4); MONOCYTES # (AUTO) 1.5 X 10^3 (0.0-1.0); MONOCYTES % (AUTO) 4 % (0-12); NEUTROPHILS # (AUTO) 39.1 X 10^3 (1.8-7.8); NEUTROPHILS % (AUTO) 93 % (42-75); PLATELET COUNT 551 10^3/uL (130-400); RED BLOOD COUNT 4.18 10^6/uL (4.35-5.85); RED CELL DISTRIBUTION WIDTH 19.3 % (10.0-14.5)
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
[2018-01-10 15:51] LABS: WHITE BLOOD COUNT 42.2 10^3/uL (4.3-11.0)
[2018-01-10 15:54] LABS: ALANINE AMINOTRANSFERASE 14 U/L (0-55); ALBUMIN 2.3 GM/DL (3.2-4.5); ALKALINE PHOSPHATASE 64 U/L (40-136); BILIRUBIN,TOTAL 0.3 MG/DL (0.1-1.0); BUN/CREATININE RATIO 15; CALCIUM 8.1 MG/DL (8.5-10.1); CARBON DIOXIDE 26 MMOL/L (21-32); CHLORIDE 102 MMOL/L (98-107); CREATININE SERUM 0.62 MG/DL (0.60-1.30); GFR ESTIMATED > 60; GLUCOSE 145 MG/DL (70-105); POTASSIUM 3.7 MMOL/L (3.6-5.0); SODIUM 136 MMOL/L (135-145); TOTAL PROTEIN 5.8 GM/DL (6.4-8.2)
[2018-01-10] MEDS ORDERED: NS IV 1000 ML 1,000 ML IV SCH ×2 (16:00→16:45)
[2018-01-10 16:03] LABS: CLARITY,URINE CLEAR; COLOR,URINE AMBER; GLUCOSE, URINE (UA) NEGATIVE (NEGATIVE); KETONES,URINE NEGATIVE (NEGATIVE); LEUKOCYTE ESTERASE ,URINE 1+ (NEGATIVE); NITRITE,URINE NEGATIVE (NEGATIVE); PH,URINE 6 (5-9); PROTEIN,URINE 2+ (NEGATIVE); UROBILINOGEN,URINE 4 MG/DL (NORMAL)
[2018-01-10 16:14] LABS: BACTERIA,URINE NEGATIVE /HPF; BILIRUBIN,URINE 1+ (NEGATIVE); WBC,URINE 0-2 /HPF
[2018-01-10 16:14] LABS: BAND NEUTROPHILS 1 %; BASOPHILS % (MANUAL) 0 %; EOSINOPHILS % (MANUAL) 0 %; LYMPHOCYTES % (MANUAL) 4 %; MONOCYTES % (MANUAL) 4 %; NEUTROPHILS % (MANUAL) 91 %
[2018-01-10 16:15] LABS: ANISOCYTOSIS MARKED; POLYCHROMASIA SLIGHT
[2018-01-10] MEDS ORDERED: PIPERACILLIN SODIUM/TAZOBACTAM 4.5 GM in NS (IVPB) 100 ML IV ONE (16:15)
[2018-01-10] MEDS ORDERED: RT-ALBUTEROL/IPRATROPIUM 3 ML (DUONEB) VIAL INH ONE (16:15)
--- NOTE | 2018-01-10 16:16 | Diagnostic Imaging Report ---
INDICATION: Pain and chills. COMPARISON: 10/27/2017 FINDINGS: Upright portable view of the chest is obtained. Heart size is normal. The pulmonary vessels do not appear congested. There has been significant increase in bilateral basilar infiltrates. There may be a small left pleural effusion. The upper lungs are clear. There is no pneumothorax. IMPRESSION: Bilateral basilar infiltrates, particularly on the left with possible small left pleural effusion. Findings have shown moderate worsening since the prior exam. Dictated by: Dictated on workstation # [id number]
--- OUTSIDE RECORDS SUMMARY | 2018-01-10 16:21 | XMS REPORT | Continuity of Care Document ---
Author Author [facility] Organization [facility] Address Unknown Phone Unavailable Allergies Active Description Code Type Severity Reaction Onset Reported/Identified Relationship to Patient Clinical Status Yes No Known Drug Allergies [id number] Drug Allergy Unknown N/A 02/13/2013 Medications There is no data. Problems Date Dx Coded Attending Type Code Diagnosis Diagnosed By 02/14/2013 Ot 285.1 AC POSTHEMORRHAG ANEMIA 02/14/2013 Ot 787.01 NAUSEA WITH VOMITING 10/25/2017 Ot 780.79 OTH MALAISE FATIGUE 10/25/2017 Ot 786.2 COUGH 10/25/2017 Ot 793.19 OTHER NONSPECIFIC ABNORMAL FINDING OF DMITRIY 10/25/2017 Ot 492.8 EMPHYSEMA NEC 10/25/2017 Ot 574.20 CHOLELITHIASIS NOS 10/25/2017 Ot 793.19 OTHER NONSPECIFIC ABNORMAL FINDING OF DMITRIY 10/25/2017 Ot 574.20 CHOLELITHIASIS NOS 10/25/2017 MEAGAN PRUITT, PAULO Murphy Ot 562.10 DIVERTICULOSIS COLON (W/O MENT OF HEMORR 10/25/2017 MEAGAN PRUITT, PAULO Murphy Ot 787.3 FLATUL/ERUCTAT/GAS PAIN 10/25/2017 MEAGAN PRUITT, PAULO Murphy Ot 789.00 ABDOMINAL PAIN, UNSPECIFIED SITE 10/25/2017 GENESIS SANZ INSTRUCTOR PAINTING Ot 486 PNEUMONIA, ORGANISM NOS 10/25/2017 GENESIS SANZ INSTRUCTOR PAINTING Ot 496 CHR AIRWAY OBSTRUCT NEC 10/25/2017 GENESIS SANZ INSTRUCTOR PAINTING Ot 786.05 SHORTNESS OF BREATH 10/25/2017 GENESIS SANZ INSTRUCTOR PAINTING Ot 786.2 COUGH 10/25/2017 Ot 780.79 OTH MALAISE FATIGUE 10/25/2017 Ot 786.2 COUGH 10/25/2017 Ot 793.19 OTHER NONSPECIFIC ABNORMAL FINDING OF DMITRIY 10/25/2017 Ot 492.8 EMPHYSEMA NEC 10/25/2017 Ot 574.20 CHOLELITHIASIS NOS 10/25/2017 Ot 793.19 OTHER NONSPECIFIC ABNORMAL FINDING OF DMITRIY 10/25/2017 Ot 574.20 CHOLELITHIASIS NOS 10/25/2017 MEAGAN PRUITT, PAULO Murphy Ot 562.10 DIVERTICULOSIS COLON (W/O MENT OF HEMORR 10/25/2017 PAULO RHODES MD Ot 787.3 FLATUL/ERUCTAT/GAS PAIN 10/25/2017 PAULO RHODES MD Ot 789.00 ABDOMINAL PAIN, UNSPECIFIED SITE 10/25/2017 SANZGENESIS HUMPHREY INSTRUCTOR PAINTING Ot 486 PNEUMONIA, ORGANISM NOS 10/25/2017 GENESIS SANZ INSTRUCTOR PAINTING Ot 496 CHR AIRWAY OBSTRUCT NEC 10/25/2017 GENESIS SANZ INSTRUCTOR PAINTING Ot 786.05 SHORTNESS OF BREATH 10/25/2017 GENESIS SANZ Ot 786.2 COUGH 10/27/2017 ROGER ROBBINS MD Ot D64.9 ANEMIA, UNSPECIFIED 10/27/2017 ROGER ROBBINS MD Ot E83.42 HYPOMAGNESEMIA 10/27/2017 ROGER ROBBINS MD Ot F17.210 NICOTINE DEPENDENCE, CIGARETTES, UNCOMPL 10/27/2017 ROGER ROBBINS MD Ot G89.29 OTHER CHRONIC PAIN 10/27/2017 ROGER ROBBINS MD Ot I48.91 UNSPECIFIED ATRIAL FIBRILLATION 10/27/2017 ROGER ROBBINS MD Ot J43.9 EMPHYSEMA, UNSPECIFIED 10/27/2017 ROGER ROBBINS MD Ot J84.9 INTERSTITIAL PULMONARY DISEASE, UNSPECIF 10/27/2017 ROGER ROBBINS MD Ot M06.841 OTHER SPECIFIED RHEUMATOID ARTHRITIS, RI 10/27/2017 ROGER ROBBINS MD, Ot M06.842 OTHER SPECIFIED RHEUMATOID ARTHRITIS, LE 10/27/2017 ROGER ROBBINS MD, Ot M06.9 RHEUMATOID ARTHRITIS, UNSPECIFIED 10/27/2017 ROGER ROBBINS MD Ot R91.8 OTHER NONSPECIFIC ABNORMAL FINDING OF DMITRIY 10/27/2017 ROGER ROBBINS MD Ot Z23 ENCOUNTER FOR IMMUNIZATION 10/27/2017 ROGER ROBBINS MD Ot 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 10/27/2017 ROGER ROBBINS MD Ot Z79.891 USP (CURRENT) USE OF OPIATE ANALGE 12/03/2017 Ot 780.79 OTH MALAISE FATIGUE 12/03/2017 Ot 786.2 COUGH 12/03/2017 Ot 793.19 OTHER NONSPECIFIC ABNORMAL FINDING OF DMITRIY 12/03/2017 Ot 492.8 EMPHYSEMA NEC 12/03/2017 Ot 574.20 CHOLELITHIASIS NOS 12/03/2017 Ot 793.19 OTHER NONSPECIFIC ABNORMAL FINDING OF DMITRIY 12/03/2017 Ot 574.20 CHOLELITHIASIS NOS 12/03/2017 MEAGAN PRUITT, PAULO Murphy Ot 562.10 DIVERTICULOSIS COLON (W/O MENT OF HEMORR 12/03/2017 MEAGAN PRUITT, PAULO Murphy Ot 787.3 FLATUL/ERUCTAT/GAS PAIN 12/03/2017 MEAGAN PRUITT, PAULO Murphy Ot 789.00 ABDOMINAL PAIN, UNSPECIFIED SITE 12/03/2017 GENESIS SANZ Ot 486 PNEUMONIA, ORGANISM NOS 12/03/2017 GENESIS SANZ Ot 496 CHR AIRWAY OBSTRUCT NEC 12/03/2017 GENESIS SANZ Ot 786.05 SHORTNESS OF BREATH 12/03/2017 GENESIS SANZ Ot 786.2 COUGH Procedures There is no data. Results Test Result Range Complete blood count (CBC) with automated white blood cell (WBC) differential - 10/25/17 18:57 Blood leukocytes automated count (number/volume) 10.9 10*3/uL 4.3-11.0 Blood erythrocytes automated count (number/volume) 4.84 10*6/uL 4.35-5.85 Venous blood hemoglobin measurement (mass/volume) 11.7 g/dL 13.3-17.7 Blood hematocrit (volume fraction) 38 % 40-54 Automated erythrocyte mean corpuscular volume 79 [foz_us] 80-99 Automated erythrocyte mean corpuscular hemoglobin (mass per erythrocyte) 24 pg 25-34 Automated erythrocyte mean corpuscular hemoglobin concentration measurement ( mass/volume) 31 g/dL 32-36 Automated erythrocyte distribution width ratio 17.8 % 10.0-14.5 Automated blood platelet count (count/volume) 262 10*3/uL 130-400 Automated blood platelet mean volume measurement 10.7 [foz_us] 7.4-10.4 Automated blood neutrophils/100 leukocytes 86 % 42-75 Automated blood lymphocytes/100 leukocytes 9 % 12-44 Blood monocytes/100 leukocytes 4 % 0-12 Automated blood eosinophils/100 leukocytes 1 % 0-10 Automated blood basophils/100 leukocytes 0 % 0-10 Blood neutrophils automated count (number/volume) 9.4 10*3 1.8-7.8 Blood lymphocytes automated count (number/volume) 0.9 10*3 1.0-4.0 Blood monocytes automated count (number/volume) 0.4 10*3 0.0-1.0 Automated eosinophil count 0.1 10*3/uL 0.0-0.3 Automated blood basophil count (count/volume) 0.0 10*3/uL 0.0-0.1 PT panel in platelet poor plasma by coagulation assay - 10/25/17 18:57 Prothrombin time (PT) in platelet poor plasma by coagulation assay 13.4 s 12.2-14.7 INR in platelet poor plasma or blood by coagulation assay 1.0 0.8-1.4 Activated partial thromboplastin time (aPTT) in platelet poor plasma bycoagulation assay - 10/25/17 18:57 Activated partial thromboplastin time (aPTT) in platelet poor plasma bycoagulation assay 30 s 24-35 Blood manual differential performed detection - 10/25/17 18:57 Blood monocytes/100 leukocytes 1 % NRG Manual blood segmented neutrophils/100 leukocytes 81 % NRG Blood band neutrophils/100 leukocytes 0 % NRG Manual blood lymphocytes/100 leukocytes 18 % NRG Manual eosinophils/100 leukocytes in nose 0 % NRG Manual blood basophils/100 leukocytes 0 % NRG Blood erythrocyte morphology finding identification NORMAL [facility] Comprehensive metabolic panel - 10/25/17 18:57 Serum or plasma sodium measurement (moles/volume) 141 mmol/L 135-145 Serum or plasma potassium measurement (moles/volume) 4.2 mmol/L 3.6-5.0 Serum or plasma chloride measurement (moles/volume) 105 mmol/L 98-107 Carbon dioxide 26 mmol/L 21-32 Serum or plasma anion gap determination (moles/volume) 10 mmol/L 5-14 Serum or plasma urea nitrogen measurement (mass/volume) 11 mg/dL 7-18 Serum or plasma creatinine measurement (mass/volume) 0.65 mg/dL 0.60-1.30 Serum or plasma urea nitrogen/creatinine mass ratio 17 NRG Serum or plasma creatinine measurement with calculation of estimated glomerular filtration rate > NRG Serum or plasma glucose measurement (mass/volume) 106 mg/dL 70-105 Serum or plasma calcium measurement (mass/volume) 8.8 mg/dL 8.5-10.1 Serum or plasma total bilirubin measurement (mass/volume) 0.4 mg/dL 0.1-1.0 Serum or plasma alkaline phosphatase measurement (enzymatic activity/volume) 48 U/L 40-136 Serum or plasma aspartate aminotransferase measurement (enzymatic activity/ volume) 23 U/L 5-34 Serum or plasma alanine aminotransferase measurement (enzymatic activity/volume ) 20 U/L 0-55 Serum or plasma protein measurement (mass/volume) 7.0 g/dL 6.4-8.2 Serum or plasma albumin measurement (mass/volume) 3.3 g/dL 3.2-4.5 Magnesium - 10/25/17 18:57 Magnesium 1.6 mg/dL 1.8-2.4 Serum or plasma creatine kinase measurement (enzymatic activity/volume) - 10/25 18:57 Serum or plasma creatine kinase measurement (enzymatic activity/volume) 55 U/L 30-200 Serum or plasma creatine kinase MB measurement (enzymatic activity/volume) - 18:57 Serum or plasma creatine kinase MB measurement (enzymatic activity/volume) 1.6 ng/mL <6.6 Serum or plasma troponin i.cardiac measurement (mass/volume) - 10/25/17 18:57 Serum or plasma troponin i.cardiac measurement (mass/volume) < ng/ mL <0.30 Myoglobin, serum - 10/25/17 18:57 Myoglobin, serum 25.0 ng/mL 10.0-92.0 Methicillin resistant Staphylococcus aureus (MRSA) screening culture - 22:05 Methicillin resistant Staphylococcus aureus (MRSA) screening culture NEG NRG Serum or plasma troponin i.cardiac measurement (mass/volume) - 10/26/17 00:55 Serum or plasma troponin i.cardiac measurement (mass/volume) < ng/ mL <0.30 Complete blood count (CBC) with automated white blood cell (WBC) differential - 10/26/17 05:00 Blood leukocytes automated count (number/volume) 8.5 10*3/uL 4.3-11.0 Blood erythrocytes automated count (number/volume) 4.16 10*6/uL 4.35-5.85 Venous blood hemoglobin measurement (mass/volume) 10.1 g/dL 13.3-17.7 Blood hematocrit (volume fraction) 34 % 40-54 Automated erythrocyte mean corpuscular volume 82 [foz_us] 80-99 Automated erythrocyte mean corpuscular hemoglobin (mass per erythrocyte) 24 pg 25-34 Automated erythrocyte mean corpuscular hemoglobin concentration measurement ( mass/volume) 30 g/dL 32-36 Automated erythrocyte distribution width ratio 17.7 % 10.0-14.5 Automated blood platelet count (count/volume) 234 10*3/uL 130-400 Automated blood platelet mean volume measurement 11.4 [foz_us] 7.4-10.4 Automated blood neutrophils/100 leukocytes 67 % 42-75 Automated blood lymphocytes/100 leukocytes 18 % 12-44 Blood monocytes/100 leukocytes 12 % 0-12 Automated blood eosinophils/100 leukocytes 2 % 0-10 Automated blood basophils/100 leukocytes 1 % 0-10 Blood neutrophils automated count (number/volume) 5.7 10*3 1.8-7.8 Blood lymphocytes automated count (number/volume) 1.5 10*3 1.0-4.0 Blood monocytes automated count (number/volume) 1.0 10*3 0.0-1.0 Automated eosinophil count 0.2 10*3/uL 0.0-0.3 Automated blood basophil count (count/volume) 0.1 10*3/uL 0.0-0.1 Comprehensive metabolic panel - 10/26/17 05:00 Serum or plasma sodium measurement (moles/volume) 145 mmol/L 135-145 Serum or plasma potassium measurement (moles/volume) 4.8 mmol/L 3.6-5.0 Serum or plasma chloride measurement (moles/volume) 108 mmol/L 98-107 Carbon dioxide 29 mmol/L 21-32 Serum or plasma anion gap determination (moles/volume) 8 mmol/L 5-14 Serum or plasma urea nitrogen measurement (mass/volume) 10 mg/dL 7-18 Serum or plasma creatinine measurement (mass/volume) 0.68 mg/dL 0.60-1.30 Serum or plasma urea nitrogen/creatinine mass ratio 15 NRG Serum or plasma creatinine measurement with calculation of estimated glomerular filtration rate > NRG Serum or plasma glucose measurement (mass/volume) 123 mg/dL 70-105 Serum or plasma calcium measurement (mass/volume) 8.3 mg/dL 8.5-10.1 Serum or plasma total bilirubin measurement (mass/volume) 0.4 mg/dL 0.1-1.0 Serum or plasma alkaline phosphatase measurement (enzymatic activity/volume) 42 U/L 40-136 Serum or plasma aspartate aminotransferase measurement (enzymatic activity/ volume) 18 U/L 5-34 Serum or plasma alanine aminotransferase measurement (enzymatic activity/volume ) 16 U/L 0-55 Serum or plasma protein measurement (mass/volume) 6.0 g/dL 6.4-8.2 Serum or plasma albumin measurement (mass/volume) 2.9 g/dL 3.2-4.5 Serum or plasma phosphate measurement (mass/volume) - 10/26/17 05:00 Serum or plasma phosphate measurement (mass/volume) 3.9 mg/dL 2.3-4.7 Magnesium - 10/26/17 05:00 Magnesium 2.2 mg/dL 1.8-2.4 Lipid 1996 panel - 10/26/17 05:00 Serum or plasma triglyceride measurement (mass/volume) 74 mg/dL <150 Serum or plasma cholesterol measurement (mass/volume) 113 mg/dL < 200 Serum or plasma cholesterol in HDL measurement (mass/volume) 35 mg/ dL 40-60 Cholesterol in LDL [mass/volume] in serum or plasma by direct assay 56 mg/dL 1-129 Serum or plasma cholesterol in VLDL measurement (mass/volume) 15 mg/ dL 5-40 Complete blood count (CBC) with automated white blood cell (WBC) differential - 10/27/17 05:20 Blood leukocytes automated count (number/volume) 9.5 10*3/uL 4.3-11.0 Blood erythrocytes automated count (number/volume) 4.20 10*6/uL 4.35-5.85 Venous blood hemoglobin measurement (mass/volume) 10.0 g/dL 13.3-17.7 Blood hematocrit (volume fraction) 35 % 40-54 Automated erythrocyte mean corpuscular volume 84 [foz_us] 80-99 Automated erythrocyte mean corpuscular hemoglobin (mass per erythrocyte) 24 pg 25-34 Automated erythrocyte mean corpuscular hemoglobin concentration measurement ( mass/volume) 28 g/dL 32-36 Automated erythrocyte distribution width ratio 17.6 % 10.0-14.5 Automated blood platelet count (count/volume) 228 10*3/uL 130-400 Automated blood platelet mean volume measurement 10.7 [foz_us] 7.4-10.4 Automated blood neutrophils/100 leukocytes 74 % 42-75 Automated blood lymphocytes/100 leukocytes 13 % 12-44 Blood monocytes/100 leukocytes 9 % 0-12 Automated blood eosinophils/100 leukocytes 3 % 0-10 Automated blood basophils/100 leukocytes 0 % 0-10 Blood neutrophils automated count (number/volume) 7.1 10*3 1.8-7.8 Blood lymphocytes automated count (number/volume) 1.2 10*3 1.0-4.0 Blood monocytes automated count (number/volume) 0.9 10*3 0.0-1.0 Automated eosinophil count 0.3 10*3/uL 0.0-0.3 Automated blood basophil count (count/volume) 0.0 10*3/uL 0.0-0.1 Whole blood basic metabolic panel - 10/27/17 05:20 Serum or plasma sodium measurement (moles/volume) 142 mmol/L 135-145 Serum or plasma potassium measurement (moles/volume) 4.1 mmol/L 3.6-5.0 Serum or plasma chloride measurement (moles/volume) 107 mmol/L 98-107 Carbon dioxide 29 mmol/L 21-32 Serum or plasma anion gap determination (moles/volume) 6 mmol/L 5-14 Serum or plasma urea nitrogen measurement (mass/volume) 3 mg/dL 7-18 Serum or plasma creatinine measurement (mass/volume) 0.55 mg/dL 0.60-1.30 Serum or plasma urea nitrogen/creatinine mass ratio 5 NRG Serum or plasma creatinine measurement with calculation of estimated glomerular filtration rate > NRG Serum or plasma glucose measurement (mass/volume) 110 mg/dL 70-105 Serum or plasma calcium measurement (mass/volume) 7.7 mg/dL 8.5-10.1 Serum or plasma phosphate measurement (mass/volume) - 10/27/17 05:20 Serum or plasma phosphate measurement (mass/volume) 2.8 mg/dL 2.3-4.7 Magnesium - 10/27/17 05:20 Magnesium 1.6 mg/dL 1.8-2.4 Encounters ACCT No. Visit Date/Time Discharge Status Pt. Type Provider Facility Loc./Unit Complaint [id number] 12/07/2017 09:00:00 12/07/2017 23:59:59 CLS Preadmit TAVO GUALLPA DO M [facility] RAD LUNG MASS [id number] 12/06/2017 09:45:00 12/06/2017 23:59:59 CLS Preadmit PASCUAL BECKER APRN [facility] RT COPD [id number] 11/23/2017 13:09:00 11/23/2017 23:59:59 CLS Preadmit CHERRI PRUITT, BRIELLE Rodriguez [facility] RAD SCREENING [id number] 10/25/2017 20:15:00 10/27/2017 13:55:00 DIS Inpatient ROSENDO PRUITT, ROGER Murphy [facility] 4TH AFIB W RVR NEW ONSET, HYPOMAGNESEMIA,CHRONIC PX [id number] 02/13/2014 14:33:00 02/13/2014 23:59:59 CLS Outpatient GENESIS SANZP [facility] RAD COPD,SOA,COUGH [id number] 11/07/2013 14:09:00 11/07/2013 23:59:59 CLS Outpatient GENESIS SANZP [facility] RAD PNEUMONIA,COUGH, SOB [id number] 04/07/2013 11:46:00 04/07/2013 23:59:59 CLS Outpatient PAULO RHODES MD [facility] RAD ABD PAIN,DISTENTION [id number] 02/13/2013 14:21:00 Document Registration [id number] 01/02/2013 09:30:00 Document Registration [id number] 12/21/2012 08:42:00 Document Registration [id number] 12/13/2012 14:29:00 Document Registration
--- OUTSIDE RECORDS SUMMARY | 2018-01-10 16:38 | XMS REPORT | Continuity of Care Document ---
Author Author [facility] Organization [facility] Address Unknown Phone Unavailable Allergies Active Description Code Type Severity Reaction Onset Reported/Identified Relationship to Patient Clinical Status Yes No Known Drug Allergies [id number] Drug Allergy Unknown N/A 02/13/2013 Medications There [...] ABDOMINAL PAIN, UNSPECIFIED SITE 10/25/2017 GENESIS SANZ CUST[employer]S AND IMMIGRATION OFFICER Ot 486 PNEUMONIA, ORGANISM NOS 10/25/2017 GENESIS SANZ CUSTOMS AND IMMIGRATION OFFICER Ot 496 CHR AIRWAY OBSTRUCT NEC 10/25/2017 GENESIS SANZ CUST[employer]S AND IMMIGRATION OFFICER Ot 786.05 SHORTNESS OF BREATH 10/25/2017 GENESIS SANZ CUSTOMS AND IMMIGRATION OFFICER Ot 786.2 COUGH 10/25/2017 Ot 780.79 OTH [...] ABDOMINAL PAIN, UNSPECIFIED SITE 10/25/2017 SANZGENESIS HUMPHREY CUSTOMS AND IMMIGRATION OFFICER Ot 486 PNEUMONIA, ORGANISM NOS 10/25/2017 GENESIS SANZ CUSTOMS AND IMMIGRATION OFFICER Ot 496 CHR AIRWAY OBSTRUCT NEC 10/25/2017 GENESIS SANZ CUSTOMS AND IMMIGRATION OFFICER Ot 786.05 SHORTNESS OF BREATH 10/25/2017 GENESIS [...] IMMUNIZATION 10/27/2017 ROGER ROBBINS MD Ot Z79.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 Type Provider Facility Loc./Unit Complaint [id number] 12/07/2017 09:00:00 12/07/2017 23:59:59 CLS Preadmit TAVO GUALLPA DO M [facility] RAD LUNG MASS [id number] 12/06/2017 09:45:00 12/06/2017 23:59:59 CLS Preadmit PASCUAL BECKER APRN [facility] RT COPD [id number] 11/23/2017 13:09:00 11/23/2017 23:59:59 CLS Preadmit CHERRI PRUITT, BRIELLE Rodriguez [facility] RAD SCREENING [id number] 10/25/2017 20:15:00 10/27/2017 13:55:00 DIS Inpatient ROSENDO PRUITT, ROGER Murphy [facility] 4TH AFIB W RVR NEW ONSET, HYPOMAGNESEMIA,CHRONIC PX [id number] 02/13/2014 14:33:00 02/13/2014 23:59:59 CLS Outpatient GENESIS SANZP [facility] RAD COPD,SOA,COUGH [id number] 11/07/2013 14:09:00 11/07/2013 23:59:59 CLS Outpatient GENESIS SANZP [facility] RAD PNEUMONIA,COUGH, SOB [id number] 04/07/2013 11:46:00 04/07/2013 23:59:59 CLS Outpatient PAULO RHODES MD [facility] RAD ABD PAIN,DISTENTION [id number] 02/13/2013 14:21:00 Document Registration [id number] 01/02/2013 09:30:00 Document Registration [id number] 12/21/2012 08:42:00 Document Registration [id number] 12/13/2012 14:29:00 Document Registration
[2018-01-10 16:41] LABS: ABG BASE EXCESS 1.3 MMOL/L (-2.5-2.5); ABG OXYGEN SATURATION 94 % (94-100); ABG PCO2 44 MMHG (35-45); ABG PH 7.39 (7.37-7.43); ABG PO2 68 MMHG (79-93); ABG TCO2 27.2 MMOL/L (21.0-31.0)
[2018-01-10 16:42] LABS: INSPIRED O2 2L; PATIENT TEMP 98; VENTILATOR NO
[2018-01-10] MEDS ORDERED: NS IV PRN (18:00)
[2018-01-10] MEDS ORDERED: ACETAMINOPHEN 325 MG TABLET/CAPLET (TYLENOL) PO PRN (18:00)
[2018-01-10] MEDS ORDERED: INFLUENZA TRIvalent 2017-2018 0.5 ML/45 MCG SYR IM ONE ×2 (18:15→19:30)
[2018-01-10] MEDS: NS IV 1000 ML 1,000 ML IV SCH ×2 (18:20→23:09)
[2018-01-10] MEDS: PIPERACILLIN SODIUM/TAZOBACTAM 4.5 GM in NS (IVPB) 100 ML IV SCH (21:06)
[2018-01-11] VITALS (24 sets, daily range): BP systolic 120–156; BP diastolic 40–95
[2018-01-11] MEDS: NS IV 1000 ML 1,000 ML IV SCH ×5 (01:47→14:59)
[2018-01-11 04:28] LABS: BASOPHILS % (AUTO) 0 % (0-10); EOSINOPHILS # (AUTO) 0.2 10^3/uL (0.0-0.3); EOSINOPHILS % (AUTO) 1 % (0-10); HEMATOCRIT 32 % (40-54); HEMOGLOBIN 9.6 G/DL (13.3-17.7); LYMPHOCYTES # (AUTO) 1.5 X 10^3 (1.0-4.0); LYMPHOCYTES % (AUTO) 7 % (12-44); MEAN CORPUSCULAR HEMOGLOBIN 23 PG (25-34); MEAN CORPUSCULAR HGB CONC 30 G/DL (32-36); MEAN CORPUSCULAR VOLUME 79 FL (80-99); MEAN PLATELET VOLUME 10.1 FL (7.4-10.4); MONOCYTES % (AUTO) 5 % (0-12); NEUTROPHILS # (AUTO) 17.9 X 10^3 (1.8-7.8); NEUTROPHILS % (AUTO) 87 % (42-75); PLATELET COUNT 557 10^3/uL (130-400); RED CELL DISTRIBUTION WIDTH 19.5 % (10.0-14.5); WHITE BLOOD COUNT 20.6 10^3/uL (4.3-11.0)
[2018-01-11 04:56] LABS: ALANINE AMINOTRANSFERASE 14 U/L (0-55); ALBUMIN 2.1 GM/DL (3.2-4.5); ALKALINE PHOSPHATASE 58 U/L (40-136); BILIRUBIN,TOTAL 0.2 MG/DL (0.1-1.0); BUN/CREATININE RATIO 14; CALCIUM 7.7 MG/DL (8.5-10.1); CARBON DIOXIDE 24 MMOL/L (21-32); CHLORIDE 111 MMOL/L (98-107); CREATININE SERUM 0.58 MG/DL (0.60-1.30); GFR ESTIMATED > 60; GLUCOSE 91 MG/DL (70-105); POTASSIUM 3.9 MMOL/L (3.6-5.0); SODIUM 141 MMOL/L (135-145); TOTAL PROTEIN 5.4 GM/DL (6.4-8.2)
[2018-01-11] MEDS: PIPERACILLIN SODIUM/TAZOBACTAM 4.5 GM in NS (IVPB) 100 ML IV SCH ×3 (05:24→21:05)
--- NOTE | 2018-01-11 09:22 | History & Physicial (CHS) ---
HPI Attending Physician Gabby Olea DO [facility] [place] [place] Consult Date of Admission Jan 10, 2018 at 16:33 Home Medications Home Medications Reviewed patient Home Medication Reconciliation Form Allergies Coded Allergies: No Known Drug Allergies (Unverified , 02/13/13) [id number] Hx Patient Social History Alcohol Use: Denies Use Recreational Drug Use: No Smoking Status: Current Everyday Smoker Type Used: Cigarettes 2nd Hand Smoke Exposure: Yes Recent Foreign Travel: No Contact w/other who traveled: No Recent Hopitalizations: No Recent Infectious Disease Expo: No Physical Abuse Screen: No Sexual Abuse: No Immunizations Up To Date Tetanus Booster (TDap): Unknown Family Medical History Significant Family History: Cancer Family History: Patient reports no known family medical history. Physical Exam-(CHC) Physical Exam Vital Signs VS - Last 72 Hours, by Label 01/10/18 01/10/18 01/11/18 01/11/18 23:00 23:35 00:00 00:00 Temp 97.7 Pulse 93 85 Resp 23 14 B/P (MAP) 112/62 (79) 138/82 (100) Pulse Ox 91 93 94 O2 Delivery Nasal Cannula Nasal Cannula Nasal Cannula O2 Flow Rate 2.00 2.00 2.00 01/11/18 01/11/18 01/11/18 01/11/18 01:00 01:00 02:00 03:00 Pulse 91 90 92 91 Resp 30 28 26 B/P (MAP) 139/71 (93) 137/73 (94) 134/75 (94) Pulse Ox 93 92 93 O2 Delivery Nasal Cannula Nasal Cannula Nasal Cannula O2 Flow Rate 2.00 2.00 2.00 01/11/18 01/11/18 01/11/18 01/11/18 03:34 04:00 04:00 05:00 Temp 97.7 Pulse 92 96 Resp 25 23 B/P (MAP) 133/82 (99) 142/76 (98) Pulse Ox 96 93 90 O2 Delivery Nasal Cannula Nasal Cannula Nasal Cannula O2 Flow Rate 2.00 2.00 2.00 01/11/18 01/11/18 01/11/18 01/11/18 06:00 07:00 07:00 08:00 Pulse 93 101 103 96 Resp 28 35 28 B/P (MAP) 120/64 (82) 148/83 (104) 130/83 (99) Pulse Ox 91 90 96 O2 Delivery Nasal Cannula Nasal Cannula Nasal Cannula O2 Flow Rate 2.00 2.00 2.00 18 218 2//18 2 08:50 09:00 09:00 10:00 Temp 97.2 Pulse 102 95 Resp 24 24 B/P (MAP) 133/77 (95) 138/72 (94) Pulse Ox 91 94 O2 Delivery Nasal Cannula Nasal Cannula Nasal Cannula O2 Flow Rate 2.00 2.00 2.00 01/11/18 2/18 2/18 2 11:00 12:00 12:30 12:55 Temp 97.0 Pulse 90 91 Resp 24 22 B/P (MAP) 125/86 (99) 129/90 (103) Pulse Ox 93 92 O2 Delivery Nasal Cannula Nasal Cannula Nasal Cannula O2 Flow Rate 2.00 2.00 2.00 01/11/18 218 2// 2 13:00 13:00 14:00 15:00 Pulse 89 90 96 94 Resp 23 35 22 B/P (MAP) 135/79 (97) 147/95 (112) 152/80 (104) Pulse Ox 91 91 94 O2 Delivery Nasal Cannula Nasal Cannula Nasal Cannula O2 Flow Rate 2.00 2.00 2.00 01/11/18 2 2// 2 16:00 16:00 16:00 17:00 Temp 97.1 Pulse 98 90 Resp 24 23 B/P (MAP) 144/78 (100) 156/82 (106) Pulse Ox 98 94 O2 Delivery Nasal Cannula Nasal Cannula Nasal Cannula O2 Flow Rate 2.00 2.00 2.00 01/11/18 2/18 2/18 218 18:00 19:00 19:00 19:29 Pulse 97 94 94 Resp 25 30 B/P (MAP) 147/86 (106) 153/86 (108) Pulse Ox 90 94 92 O2 Delivery Nasal Cannula Nasal Cannula Nasal Cannula O2 Flow Rate 2.00 2.00 2.00 18 2//18 2//18 2/18 20:00 20:00 21:00 22:00 Temp 97.9 Pulse 92 89 92 Resp 29 20 22 B/P (MAP) 120/89 (99) 146/81 (102) 144/81 (102) Pulse Ox 91 93 89 O2 Delivery Nasal Cannula Nasal Cannula Nasal Cannula Nasal Cannula O2 Flow Rate 2.00 2.00 2.00 2.00 01/11/18 01/12/18 01/12/18 01/12/18 23:00 00:00 00:00 01:00 Temp 97.4 Pulse 79 76 76 Resp 24 23 38 B/P (MAP) 146/40 (75) 139/82 (101) 108/92 (97) Pulse Ox 89 95 93 O2 Delivery Nasal Cannula Nasal Cannula Nasal Cannula Nasal Cannula O2 Flow Rate 2.00 2.00 2.00 2.00 01/12/18 01/12/18 01/12/18 01/12/18 01:00 02:00 02:24 03:00 Pulse 76 81 85 Resp 25 28 B/P (MAP) 149/76 (100) 157/91 (113) Pulse Ox 89 89 87 O2 Delivery Nasal Cannula Nasal Cannula Nasal Cannula O2 Flow Rate 2.00 2.00 2.00 01/12/18 01/12/18 01/12/18 01/12/18 03:34 03:50 04:00 04:00 Temp 99.3 Pulse 90 90 87 Resp 30 25 20 B/P (MAP) 148/92 (110) Pulse Ox 96 94 98 O2 Delivery Nasal Cannula Vapotherm Vapotherm Vapotherm O2 Flow Rate 3.00 50.00 20.00 50.00 20.00 20.00 FiO2 50 01/12/18 01/12/18 01/12/18 01/12/18 05:00 06:00 07:00 07:00 Pulse 82 84 84 84 Resp 15 26 14 B/P (MAP) 144/77 (99) 138/91 (107) 128/67 (87) Pulse Ox 97 93 94 O2 Delivery Vapotherm Vapotherm Vapotherm O2 Flow Rate 50.00 50.00 50.00 20.00 20.00 20.00 01/12/18 01/12/18 01/12/18 01/12/18 08:00 08:30 08:30 09:00 Temp 98.2 Pulse 85 85 Resp 13 15 B/P (MAP) 128/67 (87) 109/78 (88) Pulse Ox 95 96 O2 Delivery Vapotherm Vapotherm Vapotherm O2 Flow Rate 50.00 20.00 50.00 20.00 20.00 FiO2 50 01/12/18 01/12/18 01/12/18 01/12/18 09:14 10:00 11:00 12:00 Pulse 82 75 65 Resp 10 13 12 B/P (MAP) 133/75 (94) 121/67 (85) 107/64 (78) Pulse Ox 93 96 94 93 O2 Delivery Vapotherm Vapotherm Vapotherm Vapotherm O2 Flow Rate 2.00 50.00 50.00 50.00 20.00 20.00 20.00 FiO2 50 01/12/18 01/12/18 01/12/18 01/12/18 12:25 12:45 13:00 13:00 Temp 97.3 Pulse 68 68 Resp 15 B/P (MAP) 103/67 (79) Pulse Ox 92 O2 Delivery Vapotherm Vapotherm O2 Flow Rate 20.00 50.00 20.00 FiO2 50 01/12/18 01/12/18 01/12/18 01/12/18 14:00 15:00 15:35 16:00 Pulse 66 61 58 Resp 13 14 11 B/P (MAP) 107/70 (82) 100/55 (70) 101/53 (69) Pulse Ox 94 93 93 94 O2 Delivery Vapotherm Vapotherm Vapotherm Vapotherm O2 Flow Rate 50.00 50.00 20.00 50.00 20.00 20.00 20.00 FiO2 50 01/12/01/12/1801/12/01/12/18 16:15 16:15 17:00 18:00 Temp 98.8 Pulse 65 62 Resp 10 28 B/P (MAP) 107/50 (69) 131/77 (95) Pulse Ox 93 95 O2 Delivery Vapotherm Vapotherm Vapotherm O2 Flow Rate 20.00 50.00 50.00 20.00 20.00 FiO2 50 01/12/18 01/12/18 01/12/18 01/12/18 18:05 18:36 19:00 19:00 Pulse 80 76 Resp 9 B/P (MAP) 123/76 (92) Pulse Ox 94 92 O2 Delivery Vapotherm Vapotherm Vapotherm O2 Flow Rate 20.00 20.00 50.00 20.00 FiO2 50 50 01/12/18 01/12/18 /01/12/18 20:00 20:00 21:00 22:00 Temp 98.8 Pulse 84 80 82 Resp 12 15 20 B/P (MAP) 115/68 (84) 123/67 (85) 116/103 (107) Pulse Ox 91 94 96 O2 Delivery Vapotherm Vapotherm Vapotherm Vapotherm O2 Flow Rate 20.00 50.00 50.00 50.00 20.00 20.00 20.00 FiO2 50 01/12/18 01/13/18 01/13/18 01/13/18 23:00 00:00 00:00 01:00 Pulse 78 84 77 Resp 14 15 B/P (MAP) 114/44 (67) 111/68 (82) Pulse Ox 94 93 O2 Delivery Vapotherm Vapotherm Vapotherm O2 Flow Rate 50.00 20.00 50.00 20.00 20.00 FiO2 50 01/13/01/13/18 01/13/18 01/13/18 01:00 02:00 03:00 03:10 Pulse 79 73 68 Resp 18 15 23 B/P (MAP) 117/65 (82) 108/62 (77) 100/64 (76) Pulse Ox 93 95 91 91 O2 Delivery Vapotherm Vapotherm Vapotherm Vapotherm O2 Flow Rate 50.00 50.00 50.00 20.00 20.00 20.00 20.00 FiO2 50 01/13/01/13/18 01/13/18 01/13/18 04:00 04:00 05:00 06:00 Pulse 63 61 60 Resp 25 16 13 B/P (MAP) 117/65 (82) 121/67 (85) 119/71 (87) Pulse Ox 96 96 96 O2 Delivery Vapotherm Vapotherm Vapotherm Vapotherm O2 Flow Rate 50.00 20.00 50.00 50.00 20.00 20.00 20.00 FiO2 50 01/13/01/13/01/13/18 01/13/18 07:00 07:00 08:00 08:00 Pulse 61 61 65 Resp 19 12 B/P (MAP) 122/72 (89) 130/76 (94) Pulse Ox 96 100 O2 Delivery Vapotherm Vapotherm Vapotherm O2 Flow Rate 50.00 20.00 50.00 20.00 20.00 FiO2 50 01/13/18 01/13/18 01/13/18 01/13/18 08:30 08:39 09:00 10:00 Temp 97.2 Pulse 76 85 Resp 13 16 B/P (MAP) 118/72 (87) 122/62 (82) Pulse Ox 96 94 93 O2 Delivery Vapotherm Vapotherm Vapotherm O2 Flow Rate 20.00 50.00 50.00 20.00 20.00 FiO2 50 01/13/18 01/13/1801/13/01/13/18 10:30 11:00 11:54 12:00 Temp 98.1 Pulse 118 117 Resp 17 14 B/P (MAP) 109/66 (80) 112/76 (88) Pulse Ox 92 92 91 O2 Delivery Vapotherm Vapotherm Vapotherm O2 Flow Rate 20.00 50.00 50.00 20.00 20.00 FiO2 50 01/13/18 01/13/1801/13/01/13/18 12:00 13:00 13:00 14:00 Pulse 115 109 110 Resp 34 15 B/P (MAP) 113/104 (107) 103/71 (82) Pulse Ox 97 O2 Delivery Vapotherm Vapotherm Vapotherm O2 Flow Rate 20.00 50.00 50.00 20.00 10.00 FiO2 50 01/13/1801/13/01/13/01/13/18 14:48 15:00 15:18 16:00 Pulse 122 Resp 12 B/P (MAP) 108/69 (82) Pulse Ox 96 100 O2 Delivery High Flow N/C Vapotherm High Flow N/C High Flow N/C O2 Flow Rate 10.00 50.00 10.00 10.00 01/13/18 01/13/18 01/13/18 01/13/18 16:00 16:00 19:00 19:00 Temp 97.5 Pulse 124 118 124 Resp 16 16 B/P (MAP) 97/54 (68) Pulse Ox 95 93 O2 Delivery Vapotherm High Flow N/C O2 Flow Rate 50.00 5.00 10.00 01/13/18 01/13/18 01/13/18 01/13/18 19:25 20:00 20:14 21:00 Temp 96.5 Pulse 122 105 Resp 18 B/P (MAP) 98/76 (83) 113/68 (83) Pulse Ox 98 95 100 O2 Delivery High Flow N/C High Flow N/C High Flow N/C High Flow N/C O2 Flow Rate 10.00 5.00 5.00 5.00 01/13/18 22:00 Pulse 107 Resp 17 B/P (MAP) 96/86 (89) Pulse Ox 98 O2 Delivery High Flow N/C O2 Flow Rate 5.00 Capillary Refill : Less Than 3 Seconds Clinical Quality Measures DVT/VTE Risk/Contraindication: Risk Factor Score Per Nursin RFS Level Per Nursing on Admit: 4+=Very High GABBY OLEA DO Jan 11, 2018 09:22
[2018-01-11] MEDS ORDERED: PRD10T PO (10:57)
--- NOTE | 2018-01-11 11:24 | History & Physicial (CHS) ---
BAM LUIS MED STUDENT 01/11/18 1124: HPI History of Present Illness: Patient is a 72 yo M w/ PMH of CVA, COPD and arthritis who was admitted through the ED w/ sepsis, influenza B and pneumonia. Patient describes an event he thinks happened Wednesday where a couple people found him in his living room passed out naked on the floor. Patient does not recall what happened but says he was feeling well the day before. He was put in bed and left there, but later noticed his wallet and pain medications were gone, patient did report incident to the police. Later that evening his hamixoj-ho-ama came by to check up on him and does so on a regular basis since his in September of last year. Since Wednesday he has had increased generalized pain that feels like his "bones ache" and has had chills/sweats, denies any change to his baseline cough or chest pains. Patient has home O2 which he wears before he goes to bed (takes off before he falls asleep) and prn approximately 3 h/day total and has increased use to ~12 h/day since Wednesday. On Wednesday a worker from [employer] ( drops in from time to time) came out and told him he needed to go to the ER so he had his skill worker transport him to the ED. Patient reports he's feeing much better but is still having generalized "bone aches". He had a normal BM this morning w/o dysuria. Denies n/v/d, CP, SOB, numbness, tingling, abdominal pains. Admits occasional dizziness associated w/ position changes. No other questions or concerns at this time. Source: patient Exam Limitations: no limitations Date seen by provider: Jan 11, 2018 Attending Physician Gabby Olea DO [facility] [place] Consult Date of Admission Jan 10, 2018 at 16:33 Home Medications Home Medications Reviewed patient Home Medication Reconciliation Form Allergies Coded Allergies: No Known Drug Allergies (Unverified , 02/13/13) [id number] Hx Patient Social History Marrital Status: Living Status: Lives alone Alcohol Use: Denies Use Recreational Drug Use: No Smoking Status: Current Everyday Smoker Type Used: Cigarettes 2nd Hand Smoke Exposure: Yes Recent Foreign Travel: No Contact w/other who traveled: No Recent Hopitalizations: No Recent Infectious Disease Expo: No Physical Abuse Screen: No Sexual Abuse: No Immunizations Up To Date Tetanus Booster (TDap): Unknown Family Medical History Significant Family History: Cancer Family History: Patient reports no known family medical history. Review of Systems (CHC) Constitutional: chills, diaphoresis, dizziness, weakness EENTM: no symptoms reported Respiratory: cough, dyspnea on exertion, No hemoptysis Cardiovascular: No chest pain, No edema, syncope Gastrointestinal: No abdominal pain, No constipation, No diarrhea, No nausea, No vomiting Genitourinary: No dysuria, No incontinence Musculoskeletal: other (generalized "bone aches") Skin: No lesions, No pruritus, No rash Psychiatric/Neurological: Denies Headache, Denies Numbness, Denies Paresthesia , Tingling (ocasionally in the feet) Reviewed Test Results Reviewed Test Results Lab Laboratory Tests Test 01/10/18 15:18 01/10/18 15:55 01/10/18 16:35 01/10/18 17:17 Range/Units White Blood Count 42.2 *H 4.3-11.0 10^3/uL Red Blood Count 4.18 L 4.35-5.85 10^6/uL Hemoglobin 10.1 L 13.3-17.7 G/DL Hematocrit 32 L 40-54 % Mean Corpuscular Volume 77 L 80-99 FL Mean Corpuscular Hemoglobin 24 L 25-34 PG Mean Corpuscular Hemoglobin Concent 32 32-36 G/DL Red Cell Distribution Width 19.3 H 10.0-14.5 % Platelet Count 551 H 130-400 10^3/uL Mean Platelet Volume 10.1 7.4-10.4 FL Neutrophils (%) (Auto) 93 H 42-75 % Lymphocytes (%) (Auto) 4 L 12-44 % Monocytes (%) (Auto) 4 0-12 % Eosinophils (%) (Auto) 0 0-10 % Basophils (%) (Auto) 0 0-10 % Neutrophils # (Auto) 39.1 H 1.8-7.8 X 10^3 Lymphocytes # (Auto) 1.5 1.0-4.0 X 10^3 Monocytes # (Auto) 1.5 H 0.0-1.0 X 10^3 Eosinophils # (Auto) 0.0 0.0-0.3 10^3/uL Basophils # (Auto) 0.1 0.0-0.1 10^3/uL Neutrophils % (Manual) 91 % Lymphocytes % (Manual) 4 % Monocytes % (Manual) 4 % Eosinophils % (Manual) 0 % Basophils % (Manual) 0 % Band Neutrophils 1 % Polychromasia SLIGHT Basophilic Stippling SLIGHT Anisocytosis MARKED Sodium Level 136 135-145 MMOL/L Potassium Level 3.7 3.6-5.0 MMOL/L Chloride Level 102 98-107 MMOL/L Carbon Dioxide Level 26 21-32 MMOL/L Anion Gap 8 5-14 MMOL/L Blood Urea Nitrogen 9 7-18 MG/DL Creatinine 0.62 0.60-1.30 MG/DL Estimat Glomerular Filtration Rate > 60 BUN/Creatinine Ratio 15 Glucose Level 145 H 70-105 MG/DL Lactic Acid Level 3.65 *H 2.18 *H 0.50-2.00 MMOL/L Calcium Level 8.1 L 8.5-10.1 MG/DL Total Bilirubin 0.3 0.1-1.0 MG/DL Aspartate Amino Transf (AST/SGOT) 11 5-34 U/L Alanine Aminotransferase (ALT/SGPT) 14 0-55 U/L Alkaline Phosphatase 64 40-136 U/L Total Protein 5.8 L 6.4-8.2 GM/DL Albumin 2.3 L 3.2-4.5 GM/DL Urine Color CECILIA H Urine Clarity CLEAR Urine pH 6 5-9 Urine Specific [place] 1.020 1.016-1.022 Urine Protein 2+ H NEGATIVE Urine Glucose (UA) NEGATIVE NEGATIVE Urine Ketones NEGATIVE NEGATIVE Urine Nitrite NEGATIVE NEGATIVE Urine Bilirubin 1+ H NEGATIVE Urine Urobilinogen 4 H NORMAL MG/DL Urine Leukocyte Esterase 1+ H NEGATIVE Urine RBC (Auto) NEGATIVE NEGATIVE Urine RBC NONE /HPF Urine WBC 0-2 /HPF Urine Squamous Epithelial Cells NONE /HPF Urine Crystals NONE /LPF Urine Bacteria NEGATIVE /HPF Urine Casts NONE /LPF Urine Mucus MODERATE H /LPF Urine Culture Indicated NO Blood Gas Puncture Site RIGHT BRACHIAL Blood Gas Patient Temperature 98 Arterial Blood pH 7.39 7.37-7.43 Arterial Blood Partial Pressure CO2 44 35-45 MMHG Arterial Blood Partial Pressure O2 68 L 79-93 MMHG Arterial Blood HCO3 26 23-27 MMOL/L Arterial Blood Total CO2 27.2 21.0-31.0 MMOL/L Arterial Blood Oxygen Saturation 94 94-100 % Arterial Blood Base Excess 1.3 -2.5-2.5 MMOL/L Markus Test NA Blood Gas Ventilator Setting NO Blood Gas Inspired Oxygen 2L Test 01/11/18 00:30 01/11/18 04:00 Range/Units Lactic Acid Level 0.86 0.50-2.00 MMOL/L White Blood Count 20.6 H 4.3-11.0 10^3/uL Red Blood Count 4.10 L 4.35-5.85 10^6/uL Hemoglobin 9.6 L 13.3-17.7 G/DL Hematocrit 32 L 40-54 % Mean Corpuscular Volume 79 L 80-99 FL Mean Corpuscular Hemoglobin 23 L 25-34 PG Mean Corpuscular Hemoglobin Concent 30 L 32-36 G/DL Red Cell Distribution Width 19.5 H 10.0-14.5 % Platelet Count 557 H 130-400 10^3/uL Mean Platelet Volume 10.1 7.4-10.4 FL Neutrophils (%) (Auto) 87 H 42-75 % Lymphocytes (%) (Auto) 7 L 12-44 % Monocytes (%) (Auto) 5 0-12 % Eosinophils (%) (Auto) 1 0-10 % Basophils (%) (Auto) 0 0-10 % Neutrophils # (Auto) 17.9 H 1.8-7.8 X 10^3 Lymphocytes # (Auto) 1.5 1.0-4.0 X 10^3 Monocytes # (Auto) 1.0 0.0-1.0 X 10^3 Eosinophils # (Auto) 0.2 0.0-0.3 10^3/uL Basophils # (Auto) 0.0 0.0-0.1 10^3/uL Sodium Level 141 135-145 MMOL/L Potassium Level 3.9 3.6-5.0 MMOL/L Chloride Level 111 H 98-107 MMOL/L Carbon Dioxide Level 24 21-32 MMOL/L Anion Gap 6 5-14 MMOL/L Blood Urea Nitrogen 8 7-18 MG/DL Creatinine 0.58 L 0.60-1.30 MG/DL Estimat Glomerular Filtration Rate > 60 BUN/Creatinine Ratio 14 Glucose Level 91 70-105 MG/DL Calcium Level 7.7 L 8.5-10.1 MG/DL Total Bilirubin 0.2 0.1-1.0 MG/DL Aspartate Amino Transf (AST/SGOT) 18 5-34 U/L Alanine Aminotransferase (ALT/SGPT) 14 0-55 U/L Alkaline Phosphatase 58 40-136 U/L Total Protein 5.4 L 6.4-8.2 GM/DL Albumin 2.1 L 3.2-4.5 GM/DL Radiology CXR 01/10 @ 1535 IMPRESSION: Bilateral basilar infiltrates, particularly on the left with possible small left pleural effusion. Findings have shown moderate worsening since the prior exam. Physical Exam-(CHC) Physical Exam Vital Signs VS - Last 72 Hours, by Label 01/10/18 01/10/18 01/10/18 01/10/18 15:07 16:19 16:33 17:18 Temp 98.0 98.0 98.0 Pulse 100 100 100 Resp 24 24 24 B/P (MAP) 118/71 (87) 118/71 126/77 (87) Pulse Ox 93 93 98 98 O2 Delivery Nasal Cannula Nasal Cannula Nasal Cannula O2 Flow Rate 2.00 2.00 01/10/18 01/10/18 01/10/18 01/10/18 17:30 17:42 17:45 18:00 Pulse 93 93 90 Resp 23 B/P (MAP) 122/64 (83) 120/68 (85) Pulse Ox 99 91 O2 Delivery Nasal Cannula Nasal Cannula Nasal Cannula O2 Flow Rate 2.00 2.00 2.00 01/10/18 01/10/18 01/10/18 01/10/18 19:00 19:00 20:00 20:00 Temp 98.6 Pulse 93 88 95 Resp 16 22 B/P (MAP) 138/77 (97) 121/66 (84) Pulse Ox 97 93 97 O2 Delivery Nasal Cannula Nasal Cannula Nasal Cannula O2 Flow Rate 2.00 2.00 2.00 01/10/18 01/10/18 01/10/18 01/10/18 21:00 22:00 23:00 23:35 Temp 97.7 Pulse 90 92 93 Resp 23 23 B/P (MAP) 123/73 (90) 126/74 (91) 112/62 (79) Pulse Ox 98 95 91 O2 Delivery Nasal Cannula Nasal Cannula Nasal Cannula O2 Flow Rate 2.00 2.00 2.00 01/11/1818 218 218 00:00 00:00 01:00 01:00 Pulse 85 91 90 Resp 14 30 B/P (MAP) 138/82 (100) 139/71 (93) Pulse Ox 93 94 93 O2 Delivery Nasal Cannula Nasal Cannula Nasal Cannula O2 Flow Rate 2.00 2.00 2.00 18 218 218 2 02:00 03:00 03:34 04:00 Temp 97.7 Pulse 92 91 92 Resp 28 26 25 B/P (MAP) 137/73 (94) 134/75 (94) 133/82 (99) Pulse Ox 92 93 96 O2 Delivery Nasal Cannula Nasal Cannula Nasal Cannula O2 Flow Rate 2.00 2.00 2.00 18 2/18 2//18 2 04:00 05:00 06:00 07:00 Pulse 96 93 101 Resp 23 28 B/P (MAP) 142/76 (98) 120/64 (82) Pulse Ox 93 90 91 O2 Delivery Nasal Cannula Nasal Cannula Nasal Cannula O2 Flow Rate 2.00 2.00 2.00 18 218 2//18 2 07:00 08:00 09:00 09:00 Pulse 103 96 102 Resp 35 28 24 B/P (MAP) 148/83 (104) 130/83 (99) 133/77 (95) Pulse Ox 90 96 91 O2 Delivery Nasal Cannula Nasal Cannula Nasal Cannula Nasal Cannula O2 Flow Rate 2.00 2.00 2.00 2.00 01/11/18 10:00 Pulse 95 Resp 24 B/P (MAP) 138/72 (94) Pulse Ox 94 O2 Delivery Nasal Cannula O2 Flow Rate 2.00 Capillary Refill : Less Than 3 Seconds General Appearance: no apparent distress Eyes: Bilateral Eye EOMI HEENT: No scleral icterus (R), No scleral icterus (L) Neck: non-tender, full range of motion, normal inspection Respiratory: No chest non-tender, wheezing Cardiovascular: regular rate, rhythm, no edema, no murmur Peripheral Pulses: 1+ Dorsalis Pedis (R), 1+ Left Dors-Pedis (L), 2+ Radial Pulses (R), 2+ Radial Pulses (L) Gastrointestinal: normal bowel sounds, non tender, soft, No guarding, No rebound, No tenderness Extremities: normal range of motion, no pedal edema, no calf tenderness Neurologic/Psychiatric: web press jogger II-XII nml as tested, no motor/sensory deficits, alert, normal mood/affect, oriented x 3 Skin: normal color, warm/dry Clinical Quality Measures DVT/VTE Risk/Contraindication: Risk Factor Score Per Nursin RFS Level Per Nursing on Admit: 4+=Very High Copy Copies To 1: BRIELLE HARLEY MD Assessment/Plan Assessment/Plan Admission Dx Sepsis, influenza and pneumonia Plan Sepsis On admission WBC 42.2, HR 100, Resp 24, Temp 98.0, L acid 3.65 CXR bilateral basilar infiltrates Currently 20 bpm @ 92% on 2 L via NC, HR 92 Plan: - Continue Zosyn Lactic Acidosis, resolved 3.65->2.18->0.86 s/p 3L IVF Pneumonia see sepsis Influenza past 48 hour window, no Tamiflu Pain Reports generalized pain Plan: - Restart pts home pain medications Electrolytes Replace prn GABBY OLEA DO 01/13/18 2317: HPI History of Present Illness: Time Seen by Provider: 10:25 Home Medications Allergies Coded Allergies: No Known Drug Allergies (Unverified , 02/13/13) APD-Kkwojt-Lubxhy Hx Patient Social History Employed/Student: retired Alcohol Use: Denies Use Recreational Drug Use: No Smoking Status: Current Everyday Smoker Recent Foreign Travel: No Contact w/other who traveled: No Recent Hopitalizations: No Recent Infectious Disease Expo: No Physical Abuse Screen: No Sexual Abuse: No Immunizations Up To Date Tetanus Booster (TDap): Unknown Past Medical History Arthritis Hyperlipidemia Paroxysmal Afib COPD per history Dependence on Supplemental Oxygen - nocturnal only GERD HTN Chronic Pain Chronic Opiod Use Diastolic Heart Failure with preserved EF, last echo 10/2017 Osteopenia Rheumatoid Arthritis Tobacco Abuse Lung Nodules Hx of stroke Ascending Aortic Aneurysm - 4 cm in Oct 2017 Family Medical History Family History: Patient reports no known family medical history. Physical Exam-(CHC) Physical Exam Vital Signs VS - Last 72 Hours, by Label 01/10/18 01/11/18 01/11/18 01/11/18 23:35 00:00 00:00 01:00 Temp 97.7 Pulse 85 91 Resp 14 B/P (MAP) 138/82 (100) Pulse Ox 93 94 O2 Delivery Nasal Cannula Nasal Cannula O2 Flow Rate 2.00 2.00 18 01/11/18 2//01/11/18 01:00 02:00 03:00 03:34 Temp 97.7 Pulse 90 92 91 Resp 30 28 26 B/P (MAP) 139/71 (93) 137/73 (94) 134/75 (94) Pulse Ox 93 92 93 O2 Delivery Nasal Cannula Nasal Cannula Nasal Cannula O2 Flow Rate 2.00 2.00 2.00 01/11/18 01/11/1801/11/01/11/18 04:00 04:00 05:00 06:00 Pulse 92 96 93 Resp 25 23 28 B/P (MAP) 133/82 (99) 142/76 (98) 120/64 (82) Pulse Ox 96 93 90 91 O2 Delivery Nasal Cannula Nasal Cannula Nasal Cannula Nasal Cannula O2 Flow Rate 2.00 2.00 2.00 2.00 01/11/18 01/11/18 01/11/18 01/11/18 07:00 07:00 08:00 08:50 Temp 97.2 Pulse 101 103 96 Resp 35 28 B/P (MAP) 148/83 (104) 130/83 (99) Pulse Ox 90 96 O2 Delivery Nasal Cannula Nasal Cannula O2 Flow Rate 2.00 2.00 01/11/18 01/11/18 2/01/11/18 09:00 09:00 10:00 11:00 Pulse 102 95 90 Resp 24 24 24 B/P (MAP) 133/77 (95) 138/72 (94) 125/86 (99) Pulse Ox 91 94 93 O2 Delivery Nasal Cannula Nasal Cannula Nasal Cannula Nasal Cannula O2 Flow Rate 2.00 2.00 2.00 2.00 01/11/18 01/11/1801/11/01/11/18 12:00 12:30 12:55 13:00 Temp 97.0 Pulse 91 89 Resp 22 B/P (MAP) 129/90 (103) Pulse Ox 92 O2 Delivery Nasal Cannula Nasal Cannula O2 Flow Rate 2.00 2.00 18 01/11/18 2/18 01/11/18 13:00 14:00 15:00 16:00 Pulse 90 96 94 Resp 23 35 22 B/P (MAP) 135/79 (97) 147/95 (112) 152/80 (104) Pulse Ox 91 91 94 O2 Delivery Nasal Cannula Nasal Cannula Nasal Cannula Nasal Cannula O2 Flow Rate 2.00 2.00 2.00 2.00 01/11/18 01/11/18 01/11/18 01/11/18 16:00 16:00 17:00 18:00 Temp 97.1 Pulse 98 90 97 Resp 24 23 25 B/P (MAP) 144/78 (100) 156/82 (106) 147/86 (106) Pulse Ox 98 94 90 O2 Delivery Nasal Cannula Nasal Cannula Nasal Cannula O2 Flow Rate 2.00 2.00 2.00 01/11/18 01/11/18 01/11/18 01/11/18 19:00 19:00 19:29 20:00 Temp 97.9 Pulse 94 94 92 Resp 30 29 B/P (MAP) 153/86 (108) 120/89 (99) Pulse Ox 94 92 91 O2 Delivery Nasal Cannula Nasal Cannula Nasal Cannula O2 Flow Rate 2.00 2.00 2.00 01/11/18 01/11/18 01/11/18 01/11/18 20:00 21:00 22:00 23:00 Pulse 89 92 79 Resp 20 22 24 B/P (MAP) 146/81 (102) 144/81 (102) 146/40 (75) Pulse Ox 93 89 89 O2 Delivery Nasal Cannula Nasal Cannula Nasal Cannula Nasal Cannula O2 Flow Rate 2.00 2.00 2.00 2.00 01/12/18 01/12/18 01/12/18 01/12/18 00:00 00:00 01:00 01:00 Temp 97.4 Pulse 76 76 76 Resp 23 38 B/P (MAP) 139/82 (101) 108/92 (97) Pulse Ox 95 93 O2 Delivery Nasal Cannula Nasal Cannula Nasal Cannula O2 Flow Rate 2.00 2.00 2.00 01/12/18 01/12/18 01/12/18 01/12/18 02:00 02:24 03:00 03:34 Pulse 81 85 90 Resp 25 28 30 B/P (MAP) 149/76 (100) 157/91 (113) Pulse Ox 89 89 87 96 O2 Delivery Nasal Cannula Nasal Cannula Nasal Cannula Nasal Cannula O2 Flow Rate 2.00 2.00 2.00 3.00 01/12/18 01/12/18 01/12/18 01/12/18 03:50 04:00 04:00 05:00 Temp 99.3 Pulse 90 87 82 Resp 25 20 15 B/P (MAP) 148/92 (110) 144/77 (99) Pulse Ox 94 98 97 O2 Delivery Vapotherm Vapotherm Vapotherm Vapotherm O2 Flow Rate 50.00 20.00 50.00 50.00 20.00 20.00 20.00 FiO2 50 01/12/18 01/12/18 01/12/18 01/12/18 06:00 07:00 07:00 08:00 Pulse 84 84 84 85 Resp 26 14 13 B/P (MAP) 138/91 (107) 128/67 (87) 128/67 (87) Pulse Ox 93 94 95 O2 Delivery Vapotherm Vapotherm Vapotherm O2 Flow Rate 50.00 50.00 50.00 20.00 20.00 20.00 01/12/18 01/12/18 01/12/18 01/12/18 08:30 08:30 09:00 09:14 Temp 98.2 Pulse 85 Resp 15 B/P (MAP) 109/78 (88) Pulse Ox 96 93 O2 Delivery Vapotherm Vapotherm Vapotherm O2 Flow Rate 20.00 50.00 2.00 20.00 FiO2 50 50 01/12/18 01/12/18 01/12/18 01/12/18 10:00 11:00 12:00 12:25 Pulse 82 75 65 Resp 10 13 12 B/P (MAP) 133/75 (94) 121/67 (85) 107/64 (78) Pulse Ox 96 94 93 O2 Delivery Vapotherm Vapotherm Vapotherm Vapotherm O2 Flow Rate 50.00 50.00 50.00 20.00 20.00 20.00 20.00 FiO2 50 01/12/18 01/12/18 01/12/18 01/12/18 12:45 13:00 13:00 14:00 Temp 97.3 Pulse 68 68 66 Resp 15 13 B/P (MAP) 103/67 (79) 107/70 (82) Pulse Ox 92 94 O2 Delivery Vapotherm Vapotherm O2 Flow Rate 50.00 50.00 20.00 20.00 01/12/18 01/12/18 01/12/18 01/12/18 15:00 15:35 16:00 16:15 Temp 98.8 Pulse 61 58 Resp 14 11 B/P (MAP) 100/55 (70) 101/53 (69) Pulse Ox 93 93 94 O2 Delivery Vapotherm Vapotherm Vapotherm O2 Flow Rate 50.00 20.00 50.00 20.00 20.00 FiO2 50 01/12/18 01/12/18 01/12/18 01/12/18 16:15 17:00 18:00 18:05 Pulse 65 62 Resp 10 28 B/P (MAP) 107/50 (69) 131/77 (95) Pulse Ox 93 95 O2 Delivery Vapotherm Vapotherm Vapotherm Vapotherm O2 Flow Rate 20.00 50.00 50.00 20.00 20.00 20.00 FiO2 50 50 01/12/18 01/12/18 01/12/18 01/12/18 18:36 19:00 19:00 20:00 Pulse 80 76 Resp 9 B/P (MAP) 123/76 (92) Pulse Ox 94 92 O2 Delivery Vapotherm Vapotherm Vapotherm O2 Flow Rate 20.00 50.00 20.00 20.00 FiO2 50 50 01/12/18 01/12/18 01/12/18 01/12/18 20:00 21:00 22:00 23:00 Temp 98.8 Pulse 84 80 82 78 Resp 12 15 20 14 B/P (MAP) 115/68 (84) 123/67 (85) 116/103 (107) 114/44 (67) Pulse Ox 91 94 96 94 O2 Delivery Vapotherm Vapotherm Vapotherm Vapotherm O2 Flow Rate 50.00 50.00 50.00 50.00 20.00 20.00 20.00 20.00 01/13/18 01/13/18 01/13/18 01/13/18 00:00 00:00 01:00 01:00 Pulse 84 77 79 Resp 15 18 B/P (MAP) 111/68 (82) 117/65 (82) Pulse Ox 93 93 O2 Delivery Vapotherm Vapotherm Vapotherm O2 Flow Rate 20.00 50.00 50.00 20.00 20.00 FiO2 50 01/13/18 01/13/18 01/13/18 01/13/18 02:00 03:00 03:10 04:00 Pulse 73 68 63 Resp 15 23 25 B/P (MAP) 108/62 (77) 100/64 (76) 117/65 (82) Pulse Ox 95 91 91 96 O2 Delivery Vapotherm Vapotherm Vapotherm Vapotherm O2 Flow Rate 50.00 50.00 20.00 50.00 20.00 20.00 20.00 FiO2 50 01/13/18 01/13/18 01/13/18 01/13/18 04:00 05:00 06:00 07:00 Pulse 61 60 61 Resp 16 13 19 B/P (MAP) 121/67 (85) 119/71 (87) 122/72 (89) Pulse Ox 96 96 96 O2 Delivery Vapotherm Vapotherm Vapotherm Vapotherm O2 Flow Rate 20.00 50.00 50.00 50.00 20.00 20.00 20.00 FiO2 50 01/13/18 01/13/18 01/13/18 01/13/18 07:00 08:00 08:00 08:30 Temp 97.2 Pulse 61 65 Resp 12 B/P (MAP) 130/76 (94) Pulse Ox 100 O2 Delivery Vapotherm Vapotherm O2 Flow Rate 20.00 50.00 20.00 FiO2 50 01/13/18 01/13/18 01/13/18 01/13/18 08:39 09:00 10:00 10:30 Pulse 76 85 Resp 13 16 B/P (MAP) 118/72 (87) 122/62 (82) Pulse Ox 96 94 93 92 O2 Delivery Vapotherm Vapotherm Vapotherm Vapotherm O2 Flow Rate 20.00 50.00 50.00 20.00 20.00 20.00 FiO2 50 50 01/13/18 01/13/18 01/13/18 01/13/18 11:00 11:54 12:00 12:00 Temp 98.1 Pulse 118 117 Resp 17 14 B/P (MAP) 109/66 (80) 112/76 (88) Pulse Ox 92 91 O2 Delivery Vapotherm Vapotherm Vapotherm O2 Flow Rate 50.00 50.00 20.00 20.00 20.00 FiO2 50 2/2201/13/18 01/13/18 01/13/18 13:00 13:00 14:00 14:48 Pulse 115 109 110 Resp 34 15 B/P (MAP) 113/104 (107) 103/71 (82) Pulse Ox 97 O2 Delivery Vapotherm Vapotherm High Flow N/C O2 Flow Rate 50.00 50.00 10.00 20.00 10.00 01/13/18 01/13/18 01/13/18 01/13/18 15:00 15:18 16:00 16:00 Pulse 122 124 Resp 12 16 B/P (MAP) 108/69 (82) 97/54 (68) Pulse Ox 96 100 95 O2 Delivery Vapotherm High Flow N/C High Flow N/C Vapotherm O2 Flow Rate 50.00 10.00 50.00 10.00 10.00 01/13/18 01/13/18 01/13/18 01/13/18 16:00 19:00 19:00 19:25 Temp 97.5 Pulse 118 124 Resp 16 B/P (MAP) Pulse Ox 93 98 O2 Delivery High Flow N/C High Flow N/C O2 Flow Rate 5.00 10.00 01/13/18 01/13/18 01/13/18 01/13/18 20:00 20:14 21:00 22:00 Temp 96.5 Pulse 122 105 107 Resp 18 17 B/P (MAP) 98/76 (83) 113/68 (83) 96/86 (89) Pulse Ox 95 100 98 O2 Delivery High Flow N/C High Flow N/C High Flow N/C High Flow N/C O2 Flow Rate 5.00 5.00 5.00 5.00 HEENT: normal ENT inspection, No photophobia Neck: supple Respiratory: no accessory muscle use, decreased breath sounds Rectal: deferred Extremities: No normal range of motion, other (decreased range of motion and tenderness to palpation in bilateral hands) Neurologic/Psychiatric: motor weakness (generalized weakness) Copy Copies To 1: BRIELLE HARLEY MD Assessment/Plan Assessment/Plan Admission Dx Hypoxia, COPD, Weakness Plan COPD -nebulizers -supplemental oxygen as needed -tobacco cessation encouraged Hypoxia -supplemental oxygen as needed -at baseline patient uses 2L NC at night when sleeping Weakness -patient reports that he is having a lot of difficulty taking care of himself at home since his -will consult OT, PT, and Social Work when clinical condition improves to evaluate/treat Rheumatoid Arthritis -continue home pain medications Lung Nodules -pt was admitted 10/2017 for afib with RVR, CT with contrast showed multiple lung nodules and PET was recommended for further evaluation; as far as I can tell this has not been done yet; not appropriate currently as patient is acutely ill, but will need close follow up -follow up as outpatient for recommended PET, patient at high risk for lung cancer Hx Afib with RVR -pt with new onset Afib with RVR in Oct 2017; converted with cardizem -telemetry, will monitor closely Diastolic Heart Failure, Preserved EF -echo done 10/2017, EF 55% and grade I diastolic failure Ascending Aortic Aneurysm -4 cm in Oct 2017 FEN: Heart Healthy Diet DVT Ppx: Eliquis Dispo: Patient is severely ill with sepsis secondary to pneumonia and influenza B, with multiple comorbidities and will require at least a 2 midnight stay in the hospital for stabilization and treatment. He is at extremely high risk for decompensation. CODE STATUS: DNR BAM LUIS STUDENT Jan 11, 2018 11:24 GABBY OLEA DO Jan 13, 2018 23:17
[2018-01-11] MEDS ORDERED: RT-ALBUTEROL/IPRATROPIUM 3 ML (DUONEB) VIAL IH PRN (11:30)
[2018-01-11] MEDS: HYDROcodone/APAP 10 MG/325 MG (LORTAB) TAB PO PRN (14:59)
[2018-01-11] MEDS ORDERED: DILT120C53 PO (18:14)
[2018-01-11] MEDS ORDERED: MORP-33 PO (18:14)
[2018-01-11] MEDS ORDERED: HYDR-753 PO (18:14)
[2018-01-11] MEDS: RT-ALBUTEROL SULF 2.5 MG/3 ML PRE-MIX VIAL INH SCH (19:28)
[2018-01-11] MEDS: morphine ER 15 MG (MS CONTIN) TAB PO SCH (20:42)
[2018-01-11] MEDS: meTOprolol TARTRATE 50 MG (LOPRESSOR) TAB PO SCH (20:42)
[2018-01-11] MEDS: APIXABAN 5 MG (ELIQUIS) TABLET PO SCH (20:42)
[2018-01-11] MEDS: SIMvastatin 20 MG (ZOCOR) TAB PO SCH (20:42)
[2018-01-12] VITALS (24 sets, daily range): BP systolic 100–157; BP diastolic 44–103
[2018-01-12] MEDS: NS IV 1000 ML 1,000 ML IV SCH (01:04)
[2018-01-12] MEDS: HYDROcodone/APAP 10 MG/325 MG (LORTAB) TAB PO PRN ×2 (01:06→23:30)
[2018-01-12] MEDS: RT-ALBUTEROL SULF 2.5 MG/3 ML PRE-MIX VIAL INH SCH ×2 (02:23→09:14)
[2018-01-12 03:39] LABS: ABG BASE EXCESS -0.4 MMOL/L (-2.5-2.5); ABG OXYGEN SATURATION 83 % (94-100); ABG PCO2 65 MMHG (35-45); ABG PO2 52 MMHG (79-93); ABG TCO2 28.1 MMOL/L (21.0-31.0)
[2018-01-12 03:40] LABS: ALLENS TEST YES-POS; INSPIRED O2 3LNC; PATIENT TEMP 99.3; VENTILATOR NO
[2018-01-12 03:41] LABS: ABG PH 7.23 (7.37-7.43)
[2018-01-12 03:46] LABS: BASOPHILS % (AUTO) 0 % (0-10); EOSINOPHILS # (AUTO) 0.2 10^3/uL (0.0-0.3); EOSINOPHILS % (AUTO) 2 % (0-10); HEMATOCRIT 34 % (40-54); HEMOGLOBIN 9.8 G/DL (13.3-17.7); LYMPHOCYTES # (AUTO) 1.4 X 10^3 (1.0-4.0); LYMPHOCYTES % (AUTO) 12 % (12-44); MEAN CORPUSCULAR HEMOGLOBIN 24 PG (25-34); MEAN CORPUSCULAR HGB CONC 29 G/DL (32-36); MEAN CORPUSCULAR VOLUME 82 FL (80-99); MEAN PLATELET VOLUME 9.8 FL (7.4-10.4); MONOCYTES # (AUTO) 0.7 X 10^3 (0.0-1.0); MONOCYTES % (AUTO) 6 % (0-12); NEUTROPHILS # (AUTO) 9.4 X 10^3 (1.8-7.8); NEUTROPHILS % (AUTO) 81 % (42-75); PLATELET COUNT 643 10^3/uL (130-400); RED BLOOD COUNT 4.16 10^6/uL (4.35-5.85); RED CELL DISTRIBUTION WIDTH 19.5 % (10.0-14.5); WHITE BLOOD COUNT 11.7 10^3/uL (4.3-11.0)
[2018-01-12] MEDS ORDERED: FUROSEMIDE 40 MG/4 ML INJ (LASIX) IVP ONE (04:00)
[2018-01-12] MEDS ORDERED: NITROGLYCERIN 0.4 MG SL TABS BTL 25'S SL ONE (04:00)
[2018-01-12 04:12] LABS: BUN/CREATININE RATIO 11; CALCIUM 8.3 MG/DL (8.5-10.1); CARBON DIOXIDE 27 MMOL/L (21-32); CHLORIDE 109 MMOL/L (98-107); CREATININE SERUM 0.57 MG/DL (0.60-1.30); GFR ESTIMATED > 60; GLUCOSE 99 MG/DL (70-105); MAGNESIUM 1.7 MG/DL (1.8-2.4); POTASSIUM 4.8 MMOL/L (3.6-5.0); SODIUM 142 MMOL/L (135-145)
[2018-01-12] MEDS: POTASSIUM CL 10MEQ/50ML IVPB 50 ML IV SCH (05:06)
[2018-01-12] MEDS: KCL 20 MEQ TAB (K-DUR) PO SCH (05:06)
[2018-01-12] MEDS: MAGNESIUM 1 GM/100 ML IVPB 100 ML IV SCH ×3 (05:07→08:09)
[2018-01-12] MEDS: PIPERACILLIN SODIUM/TAZOBACTAM 4.5 GM in NS (IVPB) 100 ML IV SCH (05:23)
[2018-01-12] MEDS: PANTOPRAZOLE 40 MG (PROTONIX) TAB PO SCH (05:24)
[2018-01-12] MEDS ORDERED: predniSONE 10 MG TAB PO SCH (07:00)
--- NOTE | 2018-01-12 08:03 | Diagnostic Imaging Report ---
INDICATION: Dyspnea. COMPARISON: 01/10/2018. FINDINGS: Central vascular indistinctness with heterogeneous opacities have not changed. Possible small left pleural effusion. No pneumothorax. Stable cardiomegaly. IMPRESSION: Imaging features suggest stable congestive heart failure. Superimposed infection/inflammation could be present in the appropriate setting. Dictated by: Dictated on workstation # [id number]
[2018-01-12] MEDS: MELOXICAM 7.5 MG (MOBIC) TABLET PO SCH (08:55)
[2018-01-12] MEDS: DILTIAZEM 120 MG (CARDIZEM CD) CAP PO SCH (08:56)
[2018-01-12] MEDS: morphine ER 15 MG (MS CONTIN) TAB PO SCH ×2 (08:56→20:32)
[2018-01-12] MEDS: lisINopril 20 MG (PRINIVIL) TABLET PO SCH (08:56)
[2018-01-12] MEDS: meTOprolol TARTRATE 50 MG (LOPRESSOR) TAB PO SCH ×2 (08:56→20:32)
[2018-01-12] MEDS: APIXABAN 5 MG (ELIQUIS) TABLET PO SCH ×2 (08:56→20:32)
[2018-01-12] MEDS ORDERED: RT-ALBUTEROL SULF 2.5 MG/3 ML PRE-MIX VIAL INH SCH ×2 (12:23→14:00)
[2018-01-12] MEDS ORDERED: methylPREDNISolone 125 MG (Solu-MEDROL) VIAL IVP NR (12:30)
[2018-01-12] MEDS ORDERED: RT-ALBUTEROL SULF 2.5 MG/3 ML PRE-MIX VIAL INH PRN (16:00)
[2018-01-12] MEDS: RT-ALBUTEROL/IPRATROPIUM 3 ML (DUONEB) VIAL IH SCH ×2 (16:06→18:35)
[2018-01-12] MEDS: SIMvastatin 20 MG (ZOCOR) TAB PO SCH (20:32)
[2018-01-12] MEDS: methylPREDNISolone 40 MG/ML (Solu-MEDROL) VIAL IV SCH (23:30)
[2018-01-13] VITALS (21 sets, daily range): BP systolic 96–130; BP diastolic 54–104
[2018-01-13 03:45] LABS: BASOPHILS % (AUTO) 0 % (0-10); EOSINOPHILS % (AUTO) 0 % (0-10); HEMATOCRIT 33 % (40-54); HEMOGLOBIN 9.6 G/DL (13.3-17.7); LYMPHOCYTES # (AUTO) 0.5 X 10^3 (1.0-4.0); LYMPHOCYTES % (AUTO) 6 % (12-44); MEAN CORPUSCULAR HEMOGLOBIN 24 PG (25-34); MEAN CORPUSCULAR HGB CONC 29 G/DL (32-36); MEAN CORPUSCULAR VOLUME 81 FL (80-99); MEAN PLATELET VOLUME 9.7 FL (7.4-10.4); MONOCYTES # (AUTO) 0.1 X 10^3 (0.0-1.0); MONOCYTES % (AUTO) 1 % (0-12); NEUTROPHILS # (AUTO) 6.8 X 10^3 (1.8-7.8); NEUTROPHILS % (AUTO) 93 % (42-75); PLATELET COUNT 702 10^3/uL (130-400); RED BLOOD COUNT 4.08 10^6/uL (4.35-5.85); RED CELL DISTRIBUTION WIDTH 18.7 % (10.0-14.5); WHITE BLOOD COUNT 7.4 10^3/uL (4.3-11.0)
[2018-01-13 04:08] LABS: BUN/CREATININE RATIO 21; CALCIUM 8.2 MG/DL (8.5-10.1); CARBON DIOXIDE 29 MMOL/L (21-32); CHLORIDE 103 MMOL/L (98-107); CREATININE SERUM 0.57 MG/DL (0.60-1.30); GFR ESTIMATED > 60; GLUCOSE 199 MG/DL (70-105); MAGNESIUM 1.9 MG/DL (1.8-2.4); PHOSPHORUS 2.9 MG/DL (2.3-4.7); POTASSIUM 4.4 MMOL/L (3.6-5.0); SODIUM 141 MMOL/L (135-145)
[2018-01-13] MEDS: POTASSIUM CL 10MEQ/50ML IVPB 50 ML IV SCH (05:20)
[2018-01-13] MEDS: KCL 20 MEQ TAB (K-DUR) PO SCH (05:20)
[2018-01-13] MEDS: MAGNESIUM 1 GM/100 ML IVPB 100 ML IV SCH (05:20)
[2018-01-13] MEDS: PANTOPRAZOLE 40 MG (PROTONIX) TAB PO SCH (06:05)
[2018-01-13] MEDS: methylPREDNISolone 40 MG/ML (Solu-MEDROL) VIAL IV SCH ×3 (06:06→18:05)
[2018-01-13] MEDS: RT-ALBUTEROL/IPRATROPIUM 3 ML (DUONEB) VIAL IH SCH ×5 (08:37→19:22)
[2018-01-13] MEDS: MELOXICAM 7.5 MG (MOBIC) TABLET PO SCH (09:06)
[2018-01-13] MEDS: morphine ER 15 MG (MS CONTIN) TAB PO SCH ×2 (09:06→21:07)
[2018-01-13] MEDS: lisINopril 20 MG (PRINIVIL) TABLET PO SCH (09:06)
[2018-01-13] MEDS: DILTIAZEM 120 MG (CARDIZEM CD) CAP PO SCH (09:07)
[2018-01-13] MEDS: APIXABAN 5 MG (ELIQUIS) TABLET PO SCH ×2 (09:07→21:07)
[2018-01-13] MEDS: meTOprolol TARTRATE 50 MG (LOPRESSOR) TAB PO SCH ×2 (09:07→21:07)
[2018-01-13] MEDS ORDERED: NS IV 1000 ML 1,000 ML IV NR (11:22)
[2018-01-13] MEDS ORDERED: DILTIAZEM 25 MG/5 ML INJ (CARDIZEM) VIAL IVP ONE (12:00)
[2018-01-13] MEDS: cefTRIAXone INJECTION 2,000 MG in NS (IVPB) 50 ML IV SCH (14:21)
--- NOTE | 2018-01-13 14:44 | Diagnostic Imaging Report ---
INDICATION: Sepsis and flu. Comparison made with prior examination from 01/12/2018. FINDINGS: Heart size is normal. There is moderate central pulmonary venous congestion. There are bibasal infiltrates and small bilateral pleural effusions. There is no pneumothorax. The mediastinum is unremarkable. IMPRESSION: Bibasilar infiltrates and small bilateral pleural effusions. Moderate central pulmonary venous congestion. Dictated by: Dictated on workstation # [id number]
[2018-01-13] MEDS: HYDROcodone/APAP 10 MG/325 MG (LORTAB) TAB PO PRN (18:11)
[2018-01-13] MEDS: SIMvastatin 20 MG (ZOCOR) TAB PO SCH (21:07)
--- NOTE | 2018-01-13 22:53 | Progress Note (SOAP) ---
Subjective Subjective/Events-last exam LATE ENTRY FOR 01/12/18 Patient appears much improved this morning compared to yesterday. He is more awake and alert, although still somewhat drowsy. He is very tearful and states again that he cannot take care of himself at home since his in September. He reports he is starting to feel a little better, but still very short of breath. Patient states he WOULD want to be put on a ventilator if his breathing worsened to that point. Review of Systems Date Seen by Provider: Jan 12, 2018 Time Seen by Provider: 11:15 General: No Chills, No Night Sweats, Fatigue HEENT: No Head Aches, No Eye Pain, No Dysphasia Pulmonary: Dyspnea, No Pleuritic Chest Pain Cardiovascular: No: Chest Pain, Palpitations, Edema Gastrointestinal: No: Nausea, Vomiting Genitourinary: No Dysuria, No Hematuria Musculoskeletal: back pain, hand pain Neurological: Weakness, No: Numbness, Incoordination, Change in speech, Seizures Objective Exam Last Set of Vital Signs Vital Signs Date Time Temp Pulse Resp B/P (MAP) Pulse Ox O2 Delivery O2 Flow Rate FiO2 01/13/18 22:00 107 17 96/86 (89) 98 High Flow N/C 5.00 01/13/18 20:14 96.5 01/13/18 12:00 50 Capillary Refill : Less Than 3 Seconds I&O Intake and Output 01/13/18 00:00 Intake Total 3440 ml Output Total 3800 ml Balance -360 ml Intake Oral 1640 ml IV Total 1800 ml Output Urine Total 3800 ml General: Alert, Oriented X3, Cooperative, Mild Distress HEENT: Atraumatic, EOMI, Mucous Memb Moist/[place] Neck: Supple, No Thyromegaly Lungs: Other (coarse, left worse than right, scattered wheezing) Heart: Regular Rate, Normal S1, Normal S2, Other (NSR per telemetry) Abdomen: Normal Bowel Sounds, Soft, No Tenderness Extremities: No Cyanosis, No Edema, Other (bilateral hands tender to palpation with decreased range of motion) Skin: No Rashes, No Significant Lesion Neuro: Normal Speech, Normal Tone, Sensation Intact, Cranial Nerves 3-12 NL Psych/Mental Status: Mental Status NL, Mood NL Results/Procedures Lab Laboratory Tests 01/13/18 03:15: White Blood Count 7.4, Red Blood Count 4.08L, Hemoglobin 9.6L, Hematocrit 33L, Mean Corpuscular Volume 81, Mean Corpuscular Hemoglobin 24L, Mean Corpuscular Hemoglobin Concent 29L, Red Cell Distribution Width 18.7H, Platelet Count 702H, Mean Platelet Volume 9.7, Neutrophils (%) (Auto) 93H, Lymphocytes (%) (Auto) 6L , Monocytes (%) (Auto) 1, Eosinophils (%) (Auto) 0, Basophils (%) (Auto) 0, Neutrophils # (Auto) 6.8, Lymphocytes # (Auto) 0.5L, Monocytes # (Auto) 0.1, Eosinophils # (Auto) 0.0, Basophils # (Auto) 0.0, Sodium Level 141, Potassium Level 4.4, Chloride Level 103, Carbon Dioxide Level 29, Anion Gap 9, Blood Urea Nitrogen 12, Creatinine 0.57L, Estimat Glomerular Filtration Rate > 60, BUN/ Creatinine Ratio 21, Glucose Level 199H, Calcium Level 8.2L, Phosphorus Level 2.9, Magnesium Level 1.9 Microbiology 01/10/18 Blood Culture - Preliminary, Resulted No growth 01/10/18 MRSA Screen - Final, Complete MRSA not isolated Radiology CXR 01/10 @ 1535 IMPRESSION: Bilateral basilar infiltrates, particularly on the left with possible small left pleural effusion. Findings have shown moderate worsening since the prior exam. Assessment/Plan Assessment/Plan Admission Dx see below Plan Sepsis, Pneumonia, Influenza B On admission WBC 42.2, HR 100, Resp 24, Temp 98.0, L acid 3.65 CXR bilateral basilar infiltrates Currently 20 bpm @ 92% on 2 L via NC, HR 92 Plan: - Continue Zosyn 01/12 -Zosyn Day 2 -Increased oxygen requirement overnight, now on Vapotherm 20L, FiO2 50% -continue nebs -Tamiflu not started as pt is far outside 48 hour window -when asked patient DOES WANT INTUBATION if his respiratory support should decline to that point due to this illness; patient states he does not have a DPOA but he has three brothers that could make medical decisions if he were intubated and/or could not make his own decisions Lactic Acidosis, resolved 3.65->2.18->0.86 s/p 3L IVF COPD -nebulizers -supplemental oxygen as needed -tobacco cessation encouraged Hypoxia -supplemental oxygen as needed -at baseline patient uses 2L NC at night when sleeping 01/12 -acute decompensation overnight -pt now on Vapotherm FiO2 50%, 20L by high flow nasal cannula -acute on chronic resp failure Weakness -patient reports that he is having a lot of difficulty taking care of himself at home since his -will consult OT, PT, and Social Work when clinical condition improves to evaluate/treat Rheumatoid Arthritis -continue home pain medications Lung Nodules -pt was admitted 10/2017 for afib with RVR, CT with contrast showed multiple lung nodules and PET was recommended for further evaluation; as far as I can tell this has not been done yet; not appropriate currently as patient is acutely ill, but will need close follow up -follow up as outpatient for recommended PET, patient at high risk for lung cancer Hx Afib with RVR -pt with new onset Afib with RVR in Oct 2017; converted with cardizem -telemetry, will monitor closely Diastolic Heart Failure, Preserved EF -echo done 10/2017, EF 55% and grade I diastolic failure Ascending Aortic Aneurysm -4 cm in Oct 2017 FEN: Heart Healthy Diet DVT Ppx: Eliquis Dispo: Patient remains severely ill and acutely decompensated overnight with significant increase in oxygen requirement; due to this and his multiple medical comorbidities, the patient requires an ICU level of care at this time. CODE STATUS: DNR Clinical Quality Measures DVT/VTE Risk/Contraindication: Risk Factor Score Per Nursin RFS Level Per Nursing on Admit: 4+=Very High LARRY OLEA DO Jan 13, 2018 22:53
--- NOTE | 2018-01-13 22:53 | Progress Note (SOAP) ---
Subjective Subjective/Events-last exam This morning the patient is sitting up in bed watching TV. He reports he is feeling much better this morning, and like his breathing is getting better. He is much more awake and alert this morning. His oxygen requirement remains unchanged from yesterday. No acute events overnight. Review of Systems Date Seen by Provider: Jan 13, 2018 Time Seen by Provider: 10:05 General: No Chills, No Night Sweats HEENT: No Head Aches, No Eye Pain, No Dysphasia Pulmonary: Dyspnea, Pleuritic Chest Pain Cardiovascular: No: Chest Pain, Palpitations, Edema Gastrointestinal: No: Nausea, Vomiting Genitourinary: No Dysuria, No Retention Musculoskeletal: back pain, hand pain Neurological: Weakness, No: Numbness, Change in speech, Confusion, Seizures Objective Exam Last Set of Vital Signs Vital Signs Date Time Temp Pulse Resp B/P (MAP) Pulse Ox O2 Delivery O2 Flow Rate FiO2 01/13/18 22:00 107 17 96/86 (89) 98 High Flow N/C 5.00 01/13/18 20:14 96.5 01/13/18 12:00 50 Capillary Refill : Less Than 3 Seconds I&O Intake and Output 01/13/18 00:00 Intake Total 3440 ml Output Total 3800 ml Balance -360 ml Intake Oral 1640 ml IV Total 1800 ml Output Urine Total 3800 ml General: Alert, Oriented X3, Cooperative, No Acute Distress HEENT: Atraumatic, EOMI, Mucous Memb Moist/[place] Neck: Supple, No Thyromegaly Lungs: Other (diminished, scattered wheezing) Heart: Regular Rate, Normal S1, Normal S2 Abdomen: Normal Bowel Sounds, Soft, No Tenderness Extremities: No Cyanosis, No Edema, Other (bilateral hands tender to palpation and decreased range of motion) Neuro: Normal Speech, Normal Tone, Sensation Intact, Cranial Nerves 3-12 NL Psych/Mental Status: Mental Status NL, Mood NL Results/Procedures Lab Laboratory Tests 01/13/18 03:15: White Blood Count 7.4, Red Blood Count 4.08L, Hemoglobin 9.6L, Hematocrit 33L, Mean Corpuscular Volume 81, Mean Corpuscular Hemoglobin 24L, Mean Corpuscular Hemoglobin Concent 29L, Red Cell Distribution Width 18.7H, Platelet Count 702H, Mean Platelet Volume 9.7, Neutrophils (%) (Auto) 93H, Lymphocytes (%) (Auto) 6L , Monocytes (%) (Auto) 1, Eosinophils (%) (Auto) 0, Basophils (%) (Auto) 0, Neutrophils # (Auto) 6.8, Lymphocytes # (Auto) 0.5L, Monocytes # (Auto) 0.1, Eosinophils # (Auto) 0.0, Basophils # (Auto) 0.0, Sodium Level 141, Potassium Level 4.4, Chloride Level 103, Carbon Dioxide Level 29, Anion Gap 9, Blood Urea Nitrogen 12, Creatinine 0.57L, Estimat Glomerular Filtration Rate > 60, BUN/ Creatinine Ratio 21, Glucose Level 199H, Calcium Level 8.2L, Phosphorus Level 2.9, Magnesium Level 1.9 Microbiology 01/10/18 Blood Culture - Preliminary, Resulted No growth 01/10/18 MRSA Screen - Final, Complete MRSA not isolated Radiology CXR 01/10 @ 1535 IMPRESSION: Bilateral basilar infiltrates, particularly on the left with possible small left pleural effusion. Findings have shown moderate worsening since the prior exam. Assessment/Plan Assessment/Plan Plan Sepsis, Pneumonia, Influenza B On admission WBC 42.2, HR 100, Resp 24, Temp 98.0, L acid 3.65 CXR bilateral basilar infiltrates Currently 20 bpm @ 92% on 2 L via NC, HR 92 Plan: - Continue Zosyn 01/12 -Zosyn Day 2 -Increased oxygen requirement overnight, now on Vapotherm 20L, FiO2 50% -continue nebs -Tamiflu not started as pt is far outside 48 hour window -when asked patient DOES WANT INTUBATION if his respiratory support should decline to that point due to this illness; patient states he does not have a DPOA but he has three brothers that could make medical decisions if he were intubated and/or could not make his own decisions 01/13 -Zosyn Day 3 -stable oxygen requirement, Vapotherm 20L/FiO2 50% -continue with current plan -repeat CXR in AM -will transfer down to floor as patient is clinically stable Lactic Acidosis, resolved 3.65->2.18->0.86 s/p 3L IVF COPD -nebulizers -supplemental oxygen as needed -tobacco cessation encouraged Hypoxia -supplemental oxygen as needed -at baseline patient uses 2L NC at night when sleeping 01/12 -acute decompensation overnight -pt now on Vapotherm FiO2 50%, 20L by high flow nasal cannula -acute on chronic resp failure 01/13 -remains on Vapotherm FiO2 50%, 20L high flow nasal cannula Weakness -patient reports that he is having a lot of difficulty taking care of himself at home since his -will consult OT, PT, and Social Work when clinical condition improves to evaluate/treat Rheumatoid Arthritis -continue home pain medications Lung Nodules -pt was admitted 10/2017 for afib with RVR, CT with contrast showed multiple lung nodules and PET was recommended for further evaluation; as far as I can tell this has not been done yet; not appropriate currently as patient is acutely ill, but will need close follow up -follow up as outpatient for recommended PET, patient at high risk for lung cancer Hx Afib with RVR -pt with new onset Afib with RVR in Oct 2017; converted with cardizem -telemetry, will monitor closely Diastolic Heart Failure, Preserved EF -echo done 10/2017, EF 55% and grade I diastolic failure Ascending Aortic Aneurysm -4 cm in Oct 2017 FEN: Heart Healthy Diet DVT Ppx: Eliquis Dispo: Patient stable, but still acutely ill with a significant oxygen requirement and requires an inpatient level of care due to his severity of illness and multiple comorbid conditions. He remains at high risk for decompensation. CODE STATUS: DNR Clinical Quality Measures DVT/VTE Risk/Contraindication: Risk Factor Score Per Nursin RFS Level Per Nursing on Admit: 4+=Very High LARRY OLEA DO Jan 13, 2018 22:53
[2018-01-14] VITALS (26 sets, daily range): BP systolic 92–135; BP diastolic 63–109
[2018-01-14] MEDS ORDERED: methylPREDNISolone 125 MG (Solu-MEDROL) VIAL IVP SCH (00:01)
[2018-01-14] MEDS ORDERED: HALOPERIDOL 5 MG/ML (HALDOL) AMP ONE (04:08)
[2018-01-14] MEDS ORDERED: HALOPERIDOL 5 MG/ML (HALDOL) AMP IV ONE (04:15)
[2018-01-14] MEDS ORDERED: LORazepam INJ 2 MG/ML (ATIVAN) VIAL ONE (05:05)
[2018-01-14] MEDS ORDERED: MIDAZOLAM 2 MG/2 ML (VERSED) VIAL ONE (05:08)
[2018-01-14] MEDS ORDERED: fentaNYL INJECTION 100 MCG/2 ML AMP ONE (05:08)
[2018-01-14] MEDS ORDERED: MIDAZOLAM 5 MG/5 ML (VERSED) VIAL IVP ONE (05:15)
[2018-01-14] MEDS ORDERED: fentaNYL INJECTION 100 MCG/2 ML AMP IVP ONE (05:15)
[2018-01-14] MEDS ORDERED: LORazepam INJ 2 MG/ML (ATIVAN) VIAL IVP ONE (05:15)
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
[2018-01-14] MEDS ORDERED: LORazepam INJ 2 MG/ML (ATIVAN) VIAL IVP PRN (05:45)
[2018-01-14] MEDS: HALOPERIDOL 5 MG/ML (HALDOL) AMP IV SCH ×4 (05:53→22:25)
[2018-01-14] MEDS: PANTOPRAZOLE 40 MG (PROTONIX) TAB PO SCH (05:54)
[2018-01-14] MEDS: KCL 20 MEQ TAB (K-DUR) PO SCH (05:54)
[2018-01-14] MEDS: MAGNESIUM 1 GM/100 ML IVPB 100 ML IV SCH ×3 (05:54→14:30)
[2018-01-14] MEDS: POTASSIUM CL 10MEQ/50ML IVPB 50 ML IV SCH (05:54)
[2018-01-14] MEDS ORDERED: NS IV 1000 ML 1,000 ML IV ONE (06:00)
[2018-01-14 06:25] LABS: BASOPHILS % (AUTO) 0 % (0-10); EOSINOPHILS % (AUTO) 0 % (0-10); HEMATOCRIT 29 % (40-54); HEMOGLOBIN 8.6 G/DL (13.3-17.7); LYMPHOCYTES # (AUTO) 0.4 X 10^3 (1.0-4.0); LYMPHOCYTES % (AUTO) 3 % (12-44); MEAN CORPUSCULAR HEMOGLOBIN 24 PG (25-34); MEAN CORPUSCULAR HGB CONC 30 G/DL (32-36); MEAN CORPUSCULAR VOLUME 79 FL (80-99); MEAN PLATELET VOLUME 9.6 FL (7.4-10.4); MONOCYTES # (AUTO) 0.2 X 10^3 (0.0-1.0); MONOCYTES % (AUTO) 2 % (0-12); NEUTROPHILS % (AUTO) 95 % (42-75); PLATELET COUNT 669 10^3/uL (130-400); RED BLOOD COUNT 3.63 10^6/uL (4.35-5.85); RED CELL DISTRIBUTION WIDTH 18.7 % (10.0-14.5); WHITE BLOOD COUNT 12.6 10^3/uL (4.3-11.0)
[2018-01-14] MEDS ORDERED: NS IV 1000 ML 1,000 ML ONE (06:31)
[2018-01-14] MEDS: NS IV 1000 ML 1,000 ML IV SCH ×4 (06:55→22:12)
[2018-01-14 07:19] LABS: BUN/CREATININE RATIO 33; CALCIUM 7.8 MG/DL (8.5-10.1); CARBON DIOXIDE 29 MMOL/L (21-32); CHLORIDE 107 MMOL/L (98-107); CREATININE SERUM 0.54 MG/DL (0.60-1.30); GFR ESTIMATED > 60; GLUCOSE 148 MG/DL (70-105); MAGNESIUM 1.7 MG/DL (1.8-2.4); PHOSPHORUS 2.6 MG/DL (2.3-4.7); POTASSIUM 4.3 MMOL/L (3.6-5.0); SODIUM 141 MMOL/L (135-145)
--- NOTE | 2018-01-14 08:18 | Diagnostic Imaging Report ---
INDICATION: Sepsis. Frontal chest obtained at 3:14 a.m. and compared with previous day. FINDINGS: Heart is mildly enlarged. Vascular congestion again noted with extensive midlung and basilar infiltrates on both sides which are similar to the prior study. There is no pneumothorax or significant sized effusion. There is perhaps minimal pleural fluid in the left costophrenic angle. IMPRESSION: Unchanged extensive bilateral infiltrates with some minimal pleural fluid or thickening in the left costophrenic angle. Mild cardiomegaly is again noted. Dictated by: Dictated on workstation # [id number]
[2018-01-14] MEDS: RT-ALBUTEROL/IPRATROPIUM 3 ML (DUONEB) VIAL IH SCH ×4 (09:10→18:30)
[2018-01-14] MEDS: cefTRIAXone INJECTION 2,000 MG in NS (IVPB) 50 ML IV SCH (09:49)
[2018-01-14] MEDS: methylPREDNISolone 125 MG (Solu-MEDROL) VIAL IVP SCH ×2 (09:50→20:48)
--- NOTE | 2018-01-14 10:39 | Physical Therapy Progress Note ---
Therapy Progress Note Patient is currently sedated and unresponsive to verbal and painful stimuli. Nursing is aware and contacting physician. PT will attempt later today. 1 visit MARA MAGANA PT Jan 14, 2018 10:39
[2018-01-14] MEDS: APIXABAN 5 MG (ELIQUIS) TABLET PO SCH (11:27)
[2018-01-14] MEDS: meTOprolol TARTRATE 50 MG (LOPRESSOR) TAB PO SCH (11:28)
[2018-01-14] MEDS: DILTIAZEM 120 MG (CARDIZEM CD) CAP PO SCH (11:39)
[2018-01-14] MEDS: lisINopril 20 MG (PRINIVIL) TABLET PO SCH (11:39)
[2018-01-14] MEDS: MELOXICAM 7.5 MG (MOBIC) TABLET PO SCH (11:39)
[2018-01-14] MEDS: morphine ER 15 MG (MS CONTIN) TAB PO SCH ×2 (11:39→20:28)
[2018-01-14 11:46] LABS: ABG BASE EXCESS 5.6 MMOL/L (-2.5-2.5); ABG OXYGEN SATURATION 97 % (94-100); ABG PCO2 62 MMHG (35-45); ABG PO2 77 MMHG (79-93); ABG TCO2 33.4 MMOL/L (21.0-31.0)
[2018-01-14 11:48] LABS: ABG PH 7.32 (7.37-7.43); ALLENS TEST YES-POS; INSPIRED O2 3L NC; PATIENT TEMP 97.6; VENTILATOR NO
[2018-01-14] MEDS: morphine INJ 4 MG/ML 1 ML (VIAL/SYRINGE) IVP PRN ×2 (12:12→18:37)
[2018-01-14] MEDS: HALOPERIDOL 5 MG/ML (HALDOL) AMP IV PRN (12:13)
[2018-01-14 13:17] LABS: ABG BASE EXCESS 6.3 MMOL/L (-2.5-2.5); ABG OXYGEN SATURATION 98 % (94-100); ABG PCO2 61 MMHG (35-45); ABG PO2 94 MMHG (79-93); ABG TCO2 34.1 MMOL/L (21.0-31.0)
[2018-01-14 13:19] LABS: ABG PH 7.34 (7.37-7.43); ALLENS TEST YES-POS; INSPIRED O2 65%; PATIENT TEMP 96.9; VENTILATOR NO
--- NOTE | 2018-01-14 14:59 | Occ Therapy Progress Note ---
Therapy Progress Note 1455 Pt is sedated and on BiPap. Will follow for evaluation tomorrow. ASHLY MADERA OT Jan 14, 2018 14:59
--- NOTE | 2018-01-14 15:12 | Physical Therapy Evaluation ---
PT Evaluation-General Medical Diagnosis Admission Date Jan 10, 2018 at 16:33 Medical Diagnosis: sepsis/influenza B Onset Date: Jan 10, 2018 Therapy Diagnosis Therapy Diagnosis: weakness and debility Height/Weight Height (Feet): 5 Height (Inches): 10.00 Weight (Pounds): 154 Weight (Ounces): 1.0 Precautions Precautions/Isolations: Fall Prevention, Standard Precautions Weight Bear Status Right Lower Extremity: Right Full Weight Bearing Left Lower Extremity: Left Full Weight Bearing Referral Physician: Dora Reason for Referral: Evaluation/Treatment Medical History Pertinent Medical History: Atrial Fib, Arthritis, COPD (O2 dependent at home), CVA, Heart Failure, Rheumatoid Arthritis, Smoking Current History ED with body ache, SOA and weakness Reviewed History: Yes Social History Home: Single Level Current Living Status: Alone Prior/Core FIM Prior Level of Function Functional [place] Measure 0=Not Assessed/NA 4=Minimal Assistance 1=Total Assistance 5=Supervision or Setup 2=Maximal Assistance 6=Modified [place] 3=Moderate Assistance 7=Complete [place] Bed Mobility: 7 Transfers (B,C,W/C) (FIM): 7 Gait: 7 per family report PT Evaluation-Current Subjective Patient is currently on BiPap and slightly sedated. Pain Numeric Pain Scale: 0-No Pain Location: No Pain Reported Objective Patient Orientation: Confused, Listless Problem Solving: Poor Attachments: Oxygen (BiPap), Villalobos Catheter, IV ROM/Strength ROM Lower Extremities bilateral LE WNL Strength Lower Extremities 3-/5 grossly bilaterally with bed mobility Integumentary/Posture Integumentary refer to nursing notes Bladder Incontinence: Villalobos Cath Neuromuscular (Tone, Coordination, Reflexes) severely diminished with all Sensory Vision: Unable to Assess Hearing: Unable to Assess Transfers Functional [place] Measure 0=Not Assessed/NA 4=Minimal Assistance 1=Total Assistance 5=Supervision or Setup 2=Maximal Assistance 6=Modified [place] 3=Moderate Assistance 7=Complete [place] Transfers (B, C, W/C) (FIM): 1 Scootin Rollin Patient repositioned dependent assist x 2 to prevent skin breakdown Assessment/Needs 72 y.o. male, will be seen by skilled PT to address functional strength and mobility. Patient is currently sedated with BiPap in place and unable to follow simple direction. PT will address needs as patient's medical status improves. Rehab Potential: Guarded PT Short Term Goals Short Term Goals Time Frame: Jan 21, 2018 Transfers (B,C,W/C) (FIM): 2 Gait (FIM): 1 Distance (FIM): 1=up to 49 ft Gait Distance Comment: 15' Gait Level of Assist: 3 Gait Assistive Device: FWW PT [facility] Goals [facility] Goals PT Conical Mixer Goals Time Frame: Feb 04, 2018 Transfers (B,C,W/C) (FIM): 4 Gait (FIM): 2 Gait distance (FIM): 1=645-62 ft Distance: 75' Gait Level of Assist: 4 Gait Assistive Device: FWW PT Plan Problem List Problem List: Activity Tolerance, Functional Strength, Safety, Balance, Gait, Transfer, Bed Mobility Treatment/Plan Treatment Plan: Continue Plan of Care Treatment Plan: Bed Mobility, Education, Functional Activity Jenifer, Functional Strength, Gait, Safety, Therapeutic Exercise, Transfers Treatment Duration: Feb 04, 2018 Frequency: 5 times per week Estimated Hrs Per Day: .25 hour per day Patient and/or Family Agrees t: Yes Time/GCodes Time In: 1405 Time Out: 1429 Total Billed Treatment Time: 24 [facility] Jan 14, 2018 15:12
--- NOTE | 2018-01-14 20:01 | Progress Note (SOAP) ---
Subjective Subjective/Events-last exam Patient had acute decompensation overnight. He started to become restless and agitated around 0400 and was given Haldol 5 mg IVP. He continued to be restless and agitated and disoriented, pulling at his lines, acting aggressive and was at significant risk of harming himself or staff. Dr. Juarez was present and was consulted and immediately saw patient; patient required significant manpower to keep in bed, and was sedated per Dr. Juarez. Ativan, Versed, Fentanyl. This morning day shift nursing staff reports that patient has remained somnolent and is unresponsive to painful stimuli despite the fact that it has been several hours since he received any medication; also report that he has bilateral pinpoint pupils. Patient also had poor output yesterday, despite multiple fluid boluses. At the time of exam this morning, he was responsive to painful stimuli and then would follow 1-2 simple commands before falling back asleep. Review of Systems Date Seen by Provider: Jan 14, 2018 Time Seen by Provider: 10:45 General: No Chills, No Night Sweats HEENT: No Head Aches, No Eye Pain Pulmonary: Dyspnea, Cough Cardiovascular: No: Chest Pain, Palpitations Gastrointestinal: No: Nausea, Vomiting, Abdominal Pain Musculoskeletal: back pain, hand pain, No: neck pain Neurological: Incoordination, Change in speech, Confusion Objective Exam Last Set of Vital Signs Vital Signs Date Time Temp Pulse Resp B/P (MAP) Pulse Ox O2 Delivery O2 Flow Rate FiO2 01/14/18 19:00 57 01/14/18 18:30 13 100 40.00 01/14/18 18:00 120/89 (99) NIV Bilevel 01/14/18 16:00 97.0 01/13/18 12:00 50 Capillary Refill : Less Than 3 Seconds I&O Intake and Output 01/14/18 00:00 Intake Total 2050 ml Output Total 670 ml Balance 1380 ml Intake Oral 1000 ml IV Total 1050 ml Output Urine Total 670 ml General: No Acute Distress HEENT: Atraumatic, Mucous Memb Moist/[place] Neck: Supple, No Thyromegaly Lungs: Other (diminished ) Heart: Other (irregularly irregular, afib but rate controlled per telemetry) Abdomen: Normal Bowel Sounds, Soft, No Hepatosplenomegaly Extremities: No Cyanosis, No Edema Skin: No Rashes, No Significant Lesion Neuro: Normal Tone, Other (response only to painful stimuli -- significant pressure to nailbeds, however once awake will follow 1-2 simple commands before falling asleep. ) Psych/Mental Status: Other (disoriented, altered mental status) Results/Procedures Lab Laboratory Tests 01/14/18 06:00: White Blood Count 12.6H, Red Blood Count 3.63L, Hemoglobin 8.6L, Hematocrit 29L , Mean Corpuscular Volume 79L, Mean Corpuscular Hemoglobin 24L, Mean Corpuscular Hemoglobin Concent 30L, Red Cell Distribution Width 18.7H, Platelet Count 669H, Mean Platelet Volume 9.6, Neutrophils (%) (Auto) 95H, Lymphocytes (% ) (Auto) 3L, Monocytes (%) (Auto) 2, Eosinophils (%) (Auto) 0, Basophils (%) ( Auto) 0, Neutrophils # (Auto) 12.0H, Lymphocytes # (Auto) 0.4L, Monocytes # ( Auto) 0.2, Eosinophils # (Auto) 0.0, Basophils # (Auto) 0.0, Sodium Level 141, Potassium Level 4.3, Chloride Level 107, Carbon Dioxide Level 29, Anion Gap 5, Blood Urea Nitrogen 18, Creatinine 0.54L, Estimat Glomerular Filtration Rate > 60, BUN/Creatinine Ratio 33, Glucose Level 148H, Calcium Level 7.8L, Phosphorus Level 2.6, Magnesium Level 1.7L 01/14/18 11:37: Blood Gas Puncture Site R RAD, Blood Gas Patient Temperature 97.6, Arterial Blood pH 7.32*L, Arterial Blood Partial Pressure CO2 62H, Arterial Blood Partial Pressure O2 77L, Arterial Blood HCO3 32H, Arterial Blood Total CO2 33.4H , Arterial Blood Oxygen Saturation 97, Arterial Blood Base Excess 5.6H, Markus Test YES-POS, Blood Gas Ventilator Setting NO, Blood Gas Inspired Oxygen 3L NC 01/14/18 13:10: Blood Gas Puncture Site L RAD, Blood Gas Patient Temperature 96.9, Arterial Blood pH 7.34*L, Arterial Blood Partial Pressure CO2 61H, Arterial Blood Partial Pressure O2 94H, Arterial Blood HCO3 32H, Arterial Blood Total CO2 34.1H , Arterial Blood Oxygen Saturation 98, Arterial Blood Base Excess 6.3H, Markus Test YES-POS, Blood Gas Ventilator Setting NO, Blood Gas Inspired Oxygen 65% Microbiology 01/10/18 Blood Culture - Preliminary, Resulted No growth 01/10/18 MRSA Screen - Final, Complete MRSA not isolated Radiology CXR 01/10 @ 1535 IMPRESSION: Bilateral basilar infiltrates, particularly on the left with possible small left pleural effusion. Findings have shown moderate worsening since the prior exam. Assessment/Plan Assessment/Plan Admission Dx see below Admission Status: Inpatient Order (span 2 midnights) Reason for Inpatient Admission: see below Plan Sepsis, Pneumonia, Influenza B On admission WBC 42.2, HR 100, Resp 24, Temp 98.0, L acid 3.65 CXR bilateral basilar infiltrates Currently 20 bpm @ 92% on 2 L via NC, HR 92 Plan: - Continue Zosyn 01/12 -Zosyn Day 2 -Increased oxygen requirement overnight, now on Vapotherm 20L, FiO2 50% -continue nebs -Tamiflu not started as pt is far outside 48 hour window -when asked patient DOES WANT INTUBATION if his respiratory support should decline to that point due to this illness; patient states he does not have a DPOA but he has three brothers that could make medical decisions if he were intubated and/or could not make his own decisions 01/13 -IV Abx narrowed to Rocephin, cultures positive for strep pneumo, final sensitivities pending -stable oxygen requirement, Vapotherm 20L/FiO2 50% -continue with current plan -repeat CXR in AM -will transfer down to floor as patient is clinically stable 01/14 -Rocephin Day 2 -over the course of the day yesterday weaned to NC, however ABG obtained shortly after exam shows need for bipap; 15/5 with back up rate [address] Juarez -CXR shows vascular congestion with extensive midlung and bibasilar infiltrates unchanged from previous. Mild stable cardiomegaly. Altered Mental Status 01/14 -patient with acute decompensation overnight -steroid dose reduced per Dr. Juarez -scheduled Haldol 5 mg Q8H, hold for sedation -will continue to monitor closely Acute on Chronic Respiratory Failure, Hypoxia -supplemental oxygen as needed -at baseline patient uses 2L NC at night when sleeping 01/12 -acute decompensation overnight -pt now on Vapotherm FiO2 50%, 20L by high flow nasal cannula -acute on chronic resp failure 01/13 -remains on Vapotherm FiO2 50%, 20L high flow nasal cannula 01/14 -pt weaned down to NC over the course of yesterday -when initially seen this morning, end tidal CO2 low unless very painful stimuli given and patient taking extremely shallow breaths -ABG shows need for escalation of therapy, patient placed on bipap per Dr. Juarez's orders -will defer pulmonary management to Dr. Juarez -while patient on BiPap, PO medication discontinued and IV or SQ medication substituted Atrial Fibrillation 01/14 -pt had afib with rvr yesterday, given 20 mg cardizem IVP x1 and returned to sinus rhythm; pt with history of afib with rvr. -no symptoms with afib, first diagnosed episode was in Oct 2017, but suspect that patient has had this for much longer as he is asymptomatic when it occurs -this AM he is in afib but rate controlled; PO meds being held, will order IV medication and plan to use cardizem as it has proven to work well for patient Miosis 01/14 -pt with ~1 mm pupils bilaterally -likely secondary to fentanyl received earlier today -reassess tomorrow Lactic Acidosis, resolved 3.65->2.18->0.86 s/p 3L IVF COPD -nebulizers -supplemental oxygen as needed -tobacco cessation encouraged Weakness -patient reports that he is having a lot of difficulty taking care of himself at home since his -will consult OT, PT, and Social Work when clinical condition improves to evaluate/treat 01/14 -pt with acute decompensation overnight; social work notified that consult for placement after discharge can wait as patient has significantly worsened and is not able to converse with them at this time -will let social work know when patient is able to speak with them about placement after discharge -patient's family was up to see him in the afternoon and was talked to by nursing staff - two brothers and their wives who live locally, and are very relieved that patient has requested placement after discharge, as they also state that patient is unable to care for himself at home and he is not living in a safe situation Rheumatoid Arthritis -continue home pain medications 01/14 -hold PO meds while on bipap, has PRN IV medication if needed; once off bipap resume PO medication -PO medications remain ordered with hold parameters Lung Nodules -pt was admitted 10/2017 for afib with RVR, CT with contrast showed multiple lung nodules and PET was recommended for further evaluation; as far as I can tell this has not been done yet; not appropriate currently as patient is acutely ill, but will need close follow up -follow up as outpatient for recommended PET, patient at high risk for lung cancer Diastolic Heart Failure, Preserved EF -echo done 10/2017, EF 55% and grade I diastolic failure Ascending Aortic Aneurysm -4 cm in Oct 2017 FEN: Heart Healthy Diet; NPO while on bipap DVT Ppx: Lovenox Dispo: Patient acutely ill with acute decompensation overnight. Patient continues to require an ICU level of care and is at high risk for further decompensation. Patient expressed when he was awake and alert on multiple occasions that if he deteriorates he desires intubation ONLY for his acute illness. NO CHEST COMPRESSIONS. CODE STATUS: DNR Clinical Quality Measures DVT/VTE Risk/Contraindication: Risk Factor Score Per Nursin RFS Level Per Nursing on Admit: 4+=Very High LARRY OLEA DO Jan 14, 2018 20:01
[2018-01-14] MEDS: ATORVASTATIN 10 MG (LIPITOR) TABLET PO SCH (20:28)
[2018-01-14] MEDS: ENOXAPARIN 40 MG/0.4 ML (LOVENOX) SYR SC SCH (20:48)
[2018-01-14 21:27] LABS: ABG BASE EXCESS 5.8 MMOL/L (-2.5-2.5); ABG OXYGEN SATURATION 98 % (94-100); ABG PCO2 52 MMHG (35-45); ABG PH 7.39 (7.37-7.43); ABG PO2 83 MMHG (79-93); ABG TCO2 32.6 MMOL/L (21.0-31.0)
[2018-01-14 21:28] LABS: ALLENS TEST YES-POS; INSPIRED O2 40%; PATIENT TEMP 96.5; VENTILATOR NO
[2018-01-15] VITALS (29 sets, daily range): BP systolic 113–169; BP diastolic 63–104
[2018-01-15] MEDS ORDERED: methylPREDNISolone 40 MG/ML (Solu-MEDROL) VIAL IV SCH (00:01)
[2018-01-15] MEDS: meTOprolol 5 MG/5 ML (LOPRESSOR) VIAL IV SCH ×4 (00:30→17:49)
[2018-01-15] MEDS: morphine INJ 4 MG/ML 1 ML (VIAL/SYRINGE) IVP PRN ×4 (01:40→21:27)
[2018-01-15 03:18] LABS: ABG BASE EXCESS 5.6 MMOL/L (-2.5-2.5); ABG OXYGEN SATURATION 99 % (94-100); ABG PCO2 53 MMHG (35-45); ABG PH 7.37 (7.37-7.43); ABG PO2 90 MMHG (79-93); ABG TCO2 32.5 MMOL/L (21.0-31.0)
[2018-01-15 03:20] LABS: ALLENS TEST YES-POS; INSPIRED O2 40%; PATIENT TEMP 97.1; VENTILATOR NO
[2018-01-15 03:51] LABS: BASOPHILS % (AUTO) 0 % (0-10); EOSINOPHILS % (AUTO) 0 % (0-10); HEMATOCRIT 33 % (40-54); HEMOGLOBIN 9.6 G/DL (13.3-17.7); LYMPHOCYTES # (AUTO) 0.3 X 10^3 (1.0-4.0); LYMPHOCYTES % (AUTO) 4 % (12-44); MEAN CORPUSCULAR HEMOGLOBIN 24 PG (25-34); MEAN CORPUSCULAR HGB CONC 29 G/DL (32-36); MEAN CORPUSCULAR VOLUME 80 FL (80-99); MEAN PLATELET VOLUME 9.7 FL (7.4-10.4); MONOCYTES # (AUTO) 0.1 X 10^3 (0.0-1.0); MONOCYTES % (AUTO) 1 % (0-12); NEUTROPHILS # (AUTO) 7.9 X 10^3 (1.8-7.8); NEUTROPHILS % (AUTO) 95 % (42-75); PLATELET COUNT 682 10^3/uL (130-400); RED BLOOD COUNT 4.09 10^6/uL (4.35-5.85); WHITE BLOOD COUNT 8.4 10^3/uL (4.3-11.0)
[2018-01-15 04:06] LABS: BUN/CREATININE RATIO 37; CALCIUM 7.8 MG/DL (8.5-10.1); CARBON DIOXIDE 26 MMOL/L (21-32); CHLORIDE 108 MMOL/L (98-107); CREATININE SERUM 0.54 MG/DL (0.60-1.30); GFR ESTIMATED > 60; GLUCOSE 143 MG/DL (70-105); PHOSPHORUS 3.3 MG/DL (2.3-4.7); POTASSIUM 4.8 MMOL/L (3.6-5.0); SODIUM 141 MMOL/L (135-145)
[2018-01-15] MEDS: POTASSIUM CL 10MEQ/50ML IVPB 50 ML IV SCH (04:28)
[2018-01-15] MEDS: KCL 20 MEQ TAB (K-DUR) PO SCH (04:28)
[2018-01-15] MEDS: NS IV 1000 ML 1,000 ML IV SCH ×3 (04:31→20:48)
--- NOTE | 2018-01-15 05:13 | Pulmonary Progress Note ---
Subjective Time Seen by Provider: 05:17 Subjective/Events-last exam PT is currently sedated and on BiPAP. Exam Exam Vital Signs Date Time Temp Pulse Resp B/P (MAP) Pulse Ox O2 Delivery O2 Flow Rate FiO2 01/15/18 04:45 75 14 98 40.00 01/15/18 04:00 96.9 01/15/18 04:00 NIV Bilevel 40 01/15/18 03:00 72 14 144/84 (104) 99 NIV Bilevel 40.00 01/15/18 02:29 75 15 96 40.00 01/15/18 02:00 70 12 144/76 (98) 99 NIV Bilevel 40.00 01/15/18 01:00 68 13 134/77 (96) 98 NIV Bilevel 40.00 01/15/18 01:00 69 01/15/18 00:00 65 11 131/74 (93) 98 NIV Bilevel 40.00 01/15/18 00:00 67 15 97 40.00 01/15/18 00:00 NIV Bilevel 40 01/14/18 23:00 67 14 135/74 (94) 99 NIV Bilevel 40.00 01/14/18 22:18 68 15 99 40.00 01/14/18 22:00 64 14 117/69 (85) 99 NIV Bilevel 40.00 01/14/18 21:00 65 9 131/109 (116) 99 NIV Bilevel 40.00 01/14/18 20:06 63 12 100 40.00 01/14/18 20:00 NIV Bilevel 40 01/14/18 20:00 61 11 122/73 (89) 99 NIV Bilevel 40.00 01/14/18 19:00 57 01/14/18 19:00 96.9 61 11 122/73 (89) 100 NIV Bilevel 40.00 01/14/18 18:30 60 13 100 40.00 01/14/18 18:00 106 12 120/89 (99) 100 NIV Bilevel 40.00 01/14/18 17:00 93 11 108/79 (89) 100 NIV Bilevel 40.00 01/14/18 16:00 97.0 98 12 123/82 (96) 100 NIV Bilevel 40.00 01/14/18 16:00 NIV Bilevel 40 01/14/18 15:37 94 16 100 40.00 01/14/18 15:00 84 11 103/77 (86) 100 NIV Bilevel 55.00 01/14/18 14:00 72 10 99/84 (89) 100 NIV Bilevel 55.00 01/14/18 13:53 85 16 97 50.00 01/14/18 13:00 81 12 92/68 (76) 100 NIV Bilevel 65.00 01/14/18 13:00 82 01/14/18 12:16 108 16 95 65.00 01/14/18 12:13 High Flow N/C 3.00 01/14/18 12:00 97 12 110/79 (89) 98 NIV Bilevel 65.00 01/14/18 11:35 97.6 01/14/18 11:00 92 18 103/75 (84) 92 High Flow N/C 2.00 01/14/18 09:56 106 15 98/85 (89) 99 High Flow N/C 2.00 01/14/18 09:50 High Flow N/C 3.00 01/14/18 09:50 97.6 High Flow N/C 2.00 01/14/18 09:10 100 Nasal Cannula 3.00 01/14/18 09:00 109 19 103/63 (76) 100 High Flow N/C 5.00 01/14/18 08:00 98 17 100 High Flow N/C 5.00 01/14/18 07:00 91 15 100 High Flow N/C 5.00 01/14/18 07:00 90 01/14/18 06:00 92 14 100 High Flow N/C 5.00 01/14/18 05:22 120 16 103/64 (77) 100 High Flow N/C 5.00 I & O 01/15/18 07:00 Intake Total 1250 ml Output Total 710 ml Balance 540 ml General Appearance: No Apparent Distress, WD/WN, Other (sedated) HEENT: PERRL/EOMI, TMs Normal Neck: Full Range of Motion, Normal Inspection Respiratory: No Accessory Muscle Use, No Respiratory Distress, Decreased Breath Sounds, Wheezing (faint wheeze) Cardiovascular: Regular Rate, Rhythm, Normal Peripheral Pulses Capillary Refill: Less Than 3 Seconds Peripheral Pulses: 1+ Dorsalis Pedis (R), 1+ Left Dors-Pedis (L), 2+ Radial Pulses (R), 2+ Radial Pulses (L) Gastrointestinal: normal bowel sounds, non tender, soft, No guarding, No rebound, No tenderness Extremity: Normal Capillary Refill, Normal Inspection Neurologic/Psychiatric: No Motor/Sensory Deficits, Depressed Affect Skin: Normal Color, Warm/Dry Results Lab Laboratory Tests 01/14/18 06:00 01/15/18 03:30 Assessment/Plan Assessment/Plan Admission Dx Pneumonia with sepsis - Strep pneumonia and Influenza -oxygen -Continue Zosyn Acute psychosis, agitation, - currently sedated on bipap -Decrease Ativan and Morphine -Will continue scheduled Haldol, morphine, -decrease to Haldol 5mg IV Q12 and Q6 PRN -D/C Solumedrol Hypoxia Dehydration with decreased UO Metabolic acidosis - IVF at 150 Acute on chronic respiratory failure COPDAE -SVNS -oxygen -D/C Solumedrol Hx of lung nodules -Pt needs a repeat CT scan of chest 6-8wks after patient recovers from pneumonia if nodules persist he needs out patient PET scan tobacco use -education 233 Admission Status: Inpatient Order (span 2 midnights) Reason for Inpatient Admission: see below Pneumonia with sepsis - Strep pneumonia and Influenza -oxygen -Continue Zosyn Acute psychosis, agitation, - currently sedated on bipap -Decrease Ativan and Morphine -Will continue scheduled Haldol, morphine, -decrease to Haldol 5mg IV Q12 and Q6 PRN -D/C Solumedrol Hypoxia Dehydration with decreased UO Metabolic acidosis - IVF at 150 Acute on chronic respiratory failure COPDAE -SVNS -oxygen -D/C Solumedrol Hx of lung nodules -Pt needs a repeat CT scan of chest 6-8wks after patient recovers from pneumonia if nodules persist he needs out patient PET scan tobacco use -education 233 Clinical Quality Measures DVT/VTE Risk/Contraindication: Risk Factor Score Per Nursin RFS Level Per Nursing on Admit: 4+=Very High TAVO GUALLPA DO Jan 15, 2018 05:13
[2018-01-15] MEDS: HALOPERIDOL 5 MG/ML (HALDOL) AMP IV PRN ×2 (05:58→23:33)
--- NOTE | 2018-01-15 08:20 | Progress Note (SOAP) ---
Subjective Subjective/Events-last exam Patient is currently on BiPAP and is sedated. Review of Systems Date Seen by Provider: Jan 15, 2018 Time Seen by Provider: 06:50 Objective Exam Last Set of Vital Signs Vital Signs Date Time Temp Pulse Resp B/P (MAP) Pulse Ox O2 Delivery O2 Flow Rate FiO2 01/15/18 06:00 80 13 150/94 (112) 95 NIV Bilevel 40.00 01/15/18 04:00 96.9 01/15/18 04:00 40 Capillary Refill : Less Than 3 Seconds I&O Intake and Output 01/15/18 00:00 Intake Total 1250 ml Output Total 675 ml Balance 575 ml Intake Oral 0 ml IV Total 1250 ml Output Urine Total 675 ml General: No Acute Distress (The patient is currently on BiPAP and sedated) Lungs: Clear to Auscultation Heart: Regular Rate Abdomen: Soft Skin: No Breakdown Results/Procedures Lab Laboratory Tests 01/14/18 11:37: Blood Gas Puncture Site R RAD, Blood Gas Patient Temperature 97.6, Arterial Blood pH 7.32*L, Arterial Blood Partial Pressure CO2 62H, Arterial Blood Partial Pressure O2 77L, Arterial Blood HCO3 32H, Arterial Blood Total CO2 33.4H , Arterial Blood Oxygen Saturation 97, Arterial Blood Base Excess 5.6H, Markus Test YES-POS, Blood Gas Ventilator Setting NO, Blood Gas Inspired Oxygen 3L NC 01/14/18 13:10: Blood Gas Puncture Site L RAD, Blood Gas Patient Temperature 96.9, Arterial Blood pH 7.34*L, Arterial Blood Partial Pressure CO2 61H, Arterial Blood Partial Pressure O2 94H, Arterial Blood HCO3 32H, Arterial Blood Total CO2 34.1H , Arterial Blood Oxygen Saturation 98, Arterial Blood Base Excess 6.3H, Markus Test YES-POS, Blood Gas Ventilator Setting NO, Blood Gas Inspired Oxygen 65% 01/14/18 20:45: Lactic Acid Level 2.51*H 01/14/18 21:19: Blood Gas Puncture Site RIGHT RADIAL, Blood Gas Patient Temperature 96.5, Arterial Blood pH 7.39, Arterial Blood Partial Pressure CO2 52H, Arterial Blood Partial Pressure O2 83, Arterial Blood HCO3 31H, Arterial Blood Total CO2 32.6H , Arterial Blood Oxygen Saturation 98, Arterial Blood Base Excess 5.8H, Markus Test YES-POS, Blood Gas Ventilator Setting NO, Blood Gas Inspired Oxygen 40% 01/14/18 23:00: Lactic Acid Level 2.43*H 01/15/18 03:05: Blood Gas Puncture Site RIGHT RADIAL, Blood Gas Patient Temperature 97.1, Arterial Blood pH 7.37, Arterial Blood Partial Pressure CO2 53H, Arterial Blood Partial Pressure O2 90, Arterial Blood HCO3 31H, Arterial Blood Total CO2 32.5H , Arterial Blood Oxygen Saturation 99, Arterial Blood Base Excess 5.6H, Markus Test YES-POS, Blood Gas Ventilator Setting NO, Blood Gas Inspired Oxygen 40% 01/15/18 03:30: White Blood Count 8.4, Red Blood Count 4.09L, Hemoglobin 9.6L, Hematocrit 33L, Mean Corpuscular Volume 80, Mean Corpuscular Hemoglobin 24L, Mean Corpuscular Hemoglobin Concent 29L, Red Cell Distribution Width 19.0H, Platelet Count 682H, Mean Platelet Volume 9.7, Neutrophils (%) (Auto) 95H, Lymphocytes (%) (Auto) 4L , Monocytes (%) (Auto) 1, Eosinophils (%) (Auto) 0, Basophils (%) (Auto) 0, Neutrophils # (Auto) 7.9H, Lymphocytes # (Auto) 0.3L, Monocytes # (Auto) 0.1, Eosinophils # (Auto) 0.0, Basophils # (Auto) 0.0, Sodium Level 141, Potassium Level 4.8, Chloride Level 108H, Carbon Dioxide Level 26, Anion Gap 7, Blood Urea Nitrogen 20H, Creatinine 0.54L, Estimat Glomerular Filtration Rate > 60, BUN/Creatinine Ratio 37, Glucose Level 143H, Calcium Level 7.8L, Phosphorus Level 3.3, Magnesium Level 2.0 Microbiology 01/10/18 Blood Culture - Preliminary, Resulted No growth 01/10/18 MRSA Screen - Final, Complete MRSA not isolated Radiology CXR 01/10 @ 1535 IMPRESSION: Bilateral basilar infiltrates, particularly on the left with possible small left pleural effusion. Findings have shown moderate worsening since the prior exam. Assessment/Plan Assessment/Plan Admission Status: Inpatient Order (span 2 midnights) Reason for Inpatient Admission: see below Plan 1. Sepsis, Pneumonia, Influenza B On admission WBC 42.2, HR 100, Resp 24, Temp 98.0, L acid 3.65 CXR bilateral basilar infiltrates Currently 20 bpm @ 92% on 2 L via NC, HR 92 Plan: - Continue Zosyn 01/12 -Zosyn Day 2 -Increased oxygen requirement overnight, now on Vapotherm 20L, FiO2 50% -continue nebs -Tamiflu not started as pt is far outside 48 hour window -when asked patient DOES WANT INTUBATION if his respiratory support should decline to that point due to this illness; patient states he does not have a DPOA but he has three brothers that could make medical decisions if he were intubated and/or could not make his own decisions 01/13 -IV Abx narrowed to Rocephin, cultures positive for strep pneumo, final sensitivities pending -stable oxygen requirement, Vapotherm 20L/FiO2 50% -continue with current plan -repeat CXR in AM -will transfer down to floor as patient is clinically stable 01/14 -Rocephin Day 2 -over the course of the day yesterday weaned to NC, however ABG obtained shortly after exam shows need for bipap; 15/ with back up rate [address] Juarez -CXR shows vascular congestion with extensive midlung and bibasilar infiltrates unchanged from previous. Mild stable cardiomegaly. 01/15 -Rocephin day number 3 for the strep pneumonia -Pulmonary consult note noted 2. Altered Mental Status 01/14 -patient with acute decompensation overnight -steroid dose reduced per Dr. Juarez -scheduled Haldol 5 mg Q8H, hold for sedation -will continue to monitor closely 3. Acute on Chronic Respiratory Failure, Hypoxia -supplemental oxygen as needed -at baseline patient uses 2L NC at night when sleeping 01/12 -acute decompensation overnight -pt now on Vapotherm FiO2 50%, 20L by high flow nasal cannula -acute on chronic resp failure 01/13 -remains on Vapotherm FiO2 50%, 20L high flow nasal cannula 01/14 -pt weaned down to NC over the course of yesterday -when initially seen this morning, end tidal CO2 low unless very painful stimuli given and patient taking extremely shallow breaths -ABG shows need for escalation of therapy, patient placed on bipap per Dr. Juarez's orders -will defer pulmonary management to Dr. Juarez -while patient on BiPap, PO medication discontinued and IV or SQ medication substituted 01/15 currently on BiPAP 4. Atrial Fibrillation 01/14 -pt had afib with rvr yesterday, given 20 mg cardizem IVP x1 and returned to sinus rhythm; pt with history of afib with rvr. -no symptoms with afib, first diagnosed episode was in Oct 2017, but suspect that patient has had this for much longer as he is asymptomatic when it occurs -this AM he is in afib but rate controlled; PO meds being held, will order IV medication and plan to use cardizem as it has proven to work well for patient 01/15 rate controlled 5. Miosis 01/14 -pt with ~1 mm pupils bilaterally -likely secondary to fentanyl received earlier today -reassess tomorrow 6. Lactic Acidosis, resolved 3.65->2.18->0.86 s/p 3L IVF 7. COPD -nebulizers -supplemental oxygen as needed -tobacco cessation encouraged 8. Weakness -patient reports that he is having a lot of difficulty taking care of himself at home since his -will consult OT, PT, and Social Work when clinical condition improves to evaluate/treat 01/14 -pt with acute decompensation overnight; social work notified that consult for placement after discharge can wait as patient has significantly worsened and is not able to converse with them at this time -will let social work know when patient is able to speak with them about placement after discharge -patient's family was up to see him in the afternoon and was talked to by nursing staff - two brothers and their wives who live locally, and are very relieved that patient has requested placement after discharge, as they also state that patient is unable to care for himself at home and he is not living in a safe situation 9. Rheumatoid Arthritis -continue home pain medications 01/14 -hold PO meds while on bipap, has PRN IV medication if needed; once off bipap resume PO medication -PO medications remain ordered with hold parameters 10. Lung Nodules -pt was admitted 10/2017 for afib with RVR, CT with contrast showed multiple lung nodules and PET was recommended for further evaluation; as far as I can tell this has not been done yet; not appropriate currently as patient is acutely ill, but will need close follow up -follow up as outpatient for recommended PET, patient at high risk for lung cancer 11. Diastolic Heart Failure, Preserved EF -echo done 10/2017, EF 55% and grade I diastolic failure 12. Ascending Aortic Aneurysm -4 cm in Oct 2017 FEN: Heart Healthy Diet; NPO while on bipap DVT Ppx: Lovenox Dispo: Patient acutely ill with acute decompensation overnight. Patient continues to require an ICU level of care and is at high risk for further decompensation. Patient expressed when he was awake and alert on multiple occasions that if he deteriorates he desires intubation ONLY for his acute illness. NO CHEST COMPRESSIONS. CODE STATUS: DNR Clinical Quality Measures DVT/VTE Risk/Contraindication: Risk Factor Score Per Nursin RFS Level Per Nursing on Admit: 4+=Very High ILYA MARIA MD Jan 15, 2018 08:20
[2018-01-15] MEDS: RT-ALBUTEROL/IPRATROPIUM 3 ML (DUONEB) VIAL IH SCH ×3 (08:36→18:42)
[2018-01-15] MEDS: cefTRIAXone INJECTION 2,000 MG in NS (IVPB) 50 ML IV SCH (08:57)
[2018-01-15] MEDS: HALOPERIDOL 5 MG/ML (HALDOL) AMP IV SCH ×2 (08:58→20:41)
[2018-01-15] MEDS: PANTOPRAZOLE 40 MG/10 ML (PROTONIX) VIAL IV SCH (08:58)
[2018-01-15] MEDS: morphine ER 15 MG (MS CONTIN) TAB PO SCH ×2 (09:02→20:47)
[2018-01-15] MEDS: lisINopril 20 MG (PRINIVIL) TABLET PO SCH (09:02)
[2018-01-15] MEDS: MELOXICAM 7.5 MG (MOBIC) TABLET PO SCH (09:02)
--- NOTE | 2018-01-15 09:43 | Diagnostic Imaging Report ---
INDICATION: Dyspnea. Comparison is made with prior examination from 01/14/2018. FINDINGS: Heart size is normal. There is mild venous congestion. There are bibasilar infiltrates and bilateral pleural effusions. There is no pneumothorax. The mediastinum is unremarkable. IMPRESSION: Bibasilar infiltrates and small bilateral pleural effusions. Mild central pulmonary venous congestion Dictated by: Dictated on workstation # [id number]
[2018-01-15] MEDS: LORazepam INJ 2 MG/ML (ATIVAN) VIAL IVP PRN ×2 (09:48→21:59)
--- NOTE | 2018-01-15 10:33 | Occ Therapy Progress Note ---
Therapy Progress Note Attempted OT treatment at 0940. RN states pt is more alert, but has been confused and combative. Multiple ICU staff are present in pt's room attempting to calm pt and place O2. Will hold therapy at this time and attempt to complete evaluation on 01/17/18 as able. 1, visit SCARLET RODRIGUEZ OT Jan 15, 2018 10:33
[2018-01-15] MEDS ORDERED: inSUlin (REGULAR) HUMAN 1 UNIT/0.01 ML (CHARGE PER UNIT) ONE (18:06)
[2018-01-15] MEDS: ENOXAPARIN 40 MG/0.4 ML (LOVENOX) SYR SC SCH (20:49)
[2018-01-15] MEDS: ATORVASTATIN 10 MG (LIPITOR) TABLET PO SCH (20:50)
[2018-01-16] VITALS (17 sets, daily range): BP systolic 121–174; BP diastolic 62–102
[2018-01-16] MEDS ORDERED: FUROSEMIDE 40 MG/4 ML INJ (LASIX) IVP ONE
[2018-01-16] MEDS: meTOprolol 5 MG/5 ML (LOPRESSOR) VIAL IV SCH ×2 (00:04→05:53)
[2018-01-16 03:36] LABS: BASOPHILS % (AUTO) 0 % (0-10); EOSINOPHILS % (AUTO) 0 % (0-10); HEMATOCRIT 34 % (40-54); HEMOGLOBIN 10.3 G/DL (13.3-17.7); LYMPHOCYTES # (AUTO) 1.2 X 10^3 (1.0-4.0); LYMPHOCYTES % (AUTO) 11 % (12-44); MEAN CORPUSCULAR HEMOGLOBIN 24 PG (25-34); MEAN CORPUSCULAR HGB CONC 31 G/DL (32-36); MEAN CORPUSCULAR VOLUME 77 FL (80-99); MEAN PLATELET VOLUME 9.4 FL (7.4-10.4); MONOCYTES # (AUTO) 0.7 X 10^3 (0.0-1.0); MONOCYTES % (AUTO) 7 % (0-12); NEUTROPHILS % (AUTO) 83 % (42-75); PLATELET COUNT 714 10^3/uL (130-400); RED BLOOD COUNT 4.35 10^6/uL (4.35-5.85); RED CELL DISTRIBUTION WIDTH 19.3 % (10.0-14.5); WHITE BLOOD COUNT 10.9 10^3/uL (4.3-11.0)
[2018-01-16 03:58] LABS: BUN/CREATININE RATIO 28; CALCIUM 7.9 MG/DL (8.5-10.1); CARBON DIOXIDE 30 MMOL/L (21-32); CHLORIDE 104 MMOL/L (98-107); CREATININE SERUM 0.53 MG/DL (0.60-1.30); GFR ESTIMATED > 60; GLUCOSE 98 MG/DL (70-105); MAGNESIUM 1.6 MG/DL (1.8-2.4); PHOSPHORUS 2.8 MG/DL (2.3-4.7); POTASSIUM 3.9 MMOL/L (3.6-5.0); SODIUM 140 MMOL/L (135-145)
[2018-01-16] MEDS: NS IV 1000 ML 1,000 ML IV SCH ×3 (04:41→22:28)
[2018-01-16] MEDS: POTASSIUM CL 10MEQ/50ML IVPB 50 ML IV SCH (05:49)
[2018-01-16] MEDS: MAGNESIUM 1 GM/100 ML IVPB 100 ML IV SCH ×3 (05:49→07:29)
[2018-01-16] MEDS: KCL 20 MEQ TAB (K-DUR) PO SCH (05:49)
[2018-01-16] MEDS: RT-ALBUTEROL/IPRATROPIUM 3 ML (DUONEB) VIAL IH SCH ×5 (07:01→20:18)
--- NOTE | 2018-01-16 07:49 | Pulmonary Progress Note ---
Subjective Time Seen by Provider: 06:31 Subjective/Events-last exam c/o of SOB. Exam Exam Vital Signs Date Time Temp Pulse Resp B/P (MAP) Pulse Ox O2 Delivery O2 Flow Rate FiO2 01/16/18 07:05 Room Air 01/16/18 07:00 72 16 174/102 (126) 99 Room Air 01/16/18 07:00 72 01/16/18 06:00 72 15 152/94 (113) 96 Room Air 01/16/18 05:00 86 33 164/96 (118) 93 Room Air 01/16/18 04:39 97.1 01/16/18 04:00 Room Air 01/16/18 04:00 85 26 156/95 (115) 100 Room Air 01/16/18 03:00 78 21 162/92 (115) 94 Room Air 01/16/18 02:00 75 15 134/74 (94) 95 Room Air 01/16/18 01:00 90 01/16/18 01:00 80 17 157/88 (111) 98 High Flow N/C 1.00 01/16/18 00:01 88 15 100 30.00 01/16/18 00:00 NIV Bilevel 24.00 01/16/18 00:00 84 13 157/88 (111) 95 NIV Bilevel 24.00 01/16/18 00:00 97.2 01/15/18 23:00 82 12 149/87 (107) 95 High Flow N/C 1.00 01/15/18 22:00 83 13 168/72 (104) 100 High Flow N/C 1.00 01/15/18 21:00 96 26 157/87 (110) 97 High Flow N/C 1.00 01/15/18 20:41 98.0 High Flow N/C 1.00 01/15/18 20:00 89 11 167/104 (125) 97 High Flow N/C 1.00 01/15/18 20:00 High Flow N/C 1.00 01/15/18 19:00 88 01/15/18 19:00 83 18 153/91 (111) 99 High Flow N/C 1.00 01/15/18 18:43 97 Nasal Cannula 2.50 01/15/18 18:00 83 16 150/93 (112) 97 High Flow N/C 3.00 01/15/18 17:00 90 23 169/103 (125) 100 High Flow N/C 3.00 01/15/18 16:00 79 13 132/74 (93) 99 High Flow N/C 3.00 01/15/18 15:47 97.8 High Flow N/C 3.00 01/15/18 15:45 High Flow N/C 3.00 01/15/18 15:00 77 14 134/72 (92) 96 High Flow N/C 3.00 01/15/18 14:10 77 11 158/80 (106) 97 High Flow N/C 3.00 01/15/18 14:00 76 11 158/80 (106) 100 High Flow N/C 3.00 01/15/18 13:25 98 Nasal Cannula 2.00 01/15/18 13:00 82 01/15/18 13:00 80 12 138/79 (98) 97 High Flow N/C 3.00 01/15/18 12:00 75 14 113/63 (80) 99 High Flow N/C 3.00 01/15/18 11:00 98.1 81 10 147/76 (99) 100 High Flow N/C 3.00 01/15/18 11:00 High Flow N/C 3.00 01/15/18 10:00 87 12 148/87 (107) 100 High Flow N/C 3.00 01/15/18 09:00 75 26 144/80 (101) 98 NIV Bilevel 30.00 01/15/18 08:45 96.7 NIV Bilevel 30.00 01/15/18 08:45 NIV Bilevel 30 01/15/18 08:36 73 14 98 30.00 01/15/18 08:00 81 16 152/86 (108) 98 NIV Bilevel 30.00 I & O 01/16/18 07:00 Intake Total 1050 ml Output Total 5800 ml Balance -4750 ml General Appearance: No Apparent Distress, WD/WN, Other (sedated) HEENT: PERRL/EOMI, TMs Normal Neck: Full Range of Motion, Normal Inspection Respiratory: No Accessory Muscle Use, No Respiratory Distress, Decreased Breath Sounds, Wheezing (faint wheeze) Cardiovascular: Regular Rate, Rhythm, Normal Peripheral Pulses Capillary Refill: Less Than 3 Seconds Peripheral Pulses: 1+ Dorsalis Pedis (R), 1+ Left Dors-Pedis (L), 2+ Radial Pulses (R), 2+ Radial Pulses (L) Gastrointestinal: normal bowel sounds, non tender, soft, No guarding, No rebound, No tenderness Extremity: Normal Capillary Refill, Normal Inspection Neurologic/Psychiatric: No Motor/Sensory Deficits, Depressed Affect Skin: Normal Color, Warm/Dry Results Lab Laboratory Tests 01/15/18 03:30 01/16/18 03:25 Assessment/Plan Assessment/Plan Admission Dx Pneumonia with sepsis - Strep pneumonia and Influenza -oxygen -Continue Zosyn Acute psychosis, agitation, - currently sedated on bipap -Decrease Ativan and Morphine -Will continue scheduled Haldol, morphine, -decrease to Haldol 5mg IV Q12 and Q6 PRN -D/C Solumedrol Hypoxia Dehydration with decreased UO Metabolic acidosis - IVF at 150 Acute on chronic respiratory failure COPDAE -SVNS -oxygen -D/C Solumedrol Hx of lung nodules -Pt needs a repeat CT scan of chest 6-8wks after patient recovers from pneumonia if nodules persist he needs out patient PET scan tobacco use -education 233 Admission Status: Inpatient Order (span 2 midnights) Reason for Inpatient Admission: see below a Clinical Quality Measures DVT/VTE Risk/Contraindication: Risk Factor Score Per Nursin RFS Level Per Nursing on Admit: 4+=Very High TAVO GUALLPA DO Jan 16, 2018 07:49
--- NOTE | 2018-01-16 08:26 | Progress Note (SOAP) ---
Subjective Subjective/Events-last exam Patient is now off BiPAP. He is communicating and does not voice any pain. He reports he still is a little weak with regards to his breathing. Review of Systems Date Seen by Provider: Jan 16, 2018 Time Seen by Provider: 07:00 Objective Exam Last Set of Vital Signs Vital Signs Date Time Temp Pulse Resp B/P (MAP) Pulse Ox O2 Delivery O2 Flow Rate FiO2 01/16/18 07:05 Room Air 01/16/18 07:00 72 16 174/102 (126) 99 01/16/18 04:39 97.1 01/16/18 01:00 1.00 01/15/18 08:45 30 Capillary Refill : Less Than 3 Seconds I&O Intake and Output 01/16/18 00:00 Intake Total 1050 ml Output Total 2230 ml Balance -1180 ml Intake Oral 0 ml IV Total 1050 ml Output Urine Total 2230 ml General: No Acute Distress Neck: Supple Lungs: Other (Few faint crackles in the bases) Heart: Regular Rate Abdomen: Soft Extremities: No Edema Skin: No Rashes, No Significant Lesion Psych/Mental Status: Mental Status NL Results/Procedures Lab Laboratory Tests 01/16/18 03:25: White Blood Count 10.9, Red Blood Count 4.35, Hemoglobin 10.3L, Hematocrit 34L, Mean Corpuscular Volume 77L, Mean Corpuscular Hemoglobin 24L, Mean Corpuscular Hemoglobin Concent 31L, Red Cell Distribution Width 19.3H, Platelet Count 714H, Mean Platelet Volume 9.4, Neutrophils (%) (Auto) 83H, Lymphocytes (%) (Auto) 11L , Monocytes (%) (Auto) 7, Eosinophils (%) (Auto) 0, Basophils (%) (Auto) 0, Neutrophils # (Auto) 9.0H, Lymphocytes # (Auto) 1.2, Monocytes # (Auto) 0.7, Eosinophils # (Auto) 0.0, Basophils # (Auto) 0.0, Sodium Level 140, Potassium Level 3.9, Chloride Level 104, Carbon Dioxide Level 30, Anion Gap 6, Blood Urea Nitrogen 15, Creatinine 0.53L, Estimat Glomerular Filtration Rate > 60, BUN/ Creatinine Ratio 28, Glucose Level 98, Calcium Level 7.9L, Phosphorus Level 2.8 , Magnesium Level 1.6L Microbiology 01/10/18 Blood Culture - Final, Complete No growth 01/10/18 MRSA Screen - Final, Complete MRSA not isolated Radiology CXR 01/10 @ 1535 IMPRESSION: Bilateral basilar infiltrates, particularly on the left with possible small left pleural effusion. Findings have shown moderate worsening since the prior exam. Assessment/Plan Assessment/Plan Admission Status: Inpatient Order (span 2 midnights) Reason for Inpatient Admission: see below Plan 1. Sepsis, Pneumonia, Influenza B On admission WBC 42.2, HR 100, Resp 24, Temp 98.0, L acid 3.65 CXR bilateral basilar infiltrates Currently 20 bpm @ 92% on 2 L via NC, HR 92 Plan: - Continue Zosyn 01/12 -Zosyn Day 2 -Increased oxygen requirement overnight, now on Vapotherm 20L, FiO2 50% -continue nebs -Tamiflu not started as pt is far outside 48 hour window -when asked patient DOES WANT INTUBATION if his respiratory support should decline to that point due to this illness; patient states he does not have a DPOA but he has three brothers that could make medical decisions if he were intubated and/or could not make his own decisions 01/13 -IV Abx narrowed to Rocephin, cultures positive for strep pneumo, final sensitivities pending -stable oxygen requirement, Vapotherm 20L/FiO2 50% -continue with current plan -repeat CXR in AM -will transfer down to floor as patient is clinically stable 01/14 -Rocephin Day 2 -over the course of the day yesterday weaned to NC, however ABG obtained shortly after exam shows need for bipap; 15/ with back up rate [address] Juarez -CXR shows vascular congestion with extensive midlung and bibasilar infiltrates unchanged from previous. Mild stable cardiomegaly. 01/15 -Rocephin day number 3 for the strep pneumonia -Pulmonary consult note noted 01/16 -Rocephin day number 4 2. Altered Mental Status 01/14 -patient with acute decompensation overnight -steroid dose reduced per Dr. Juarez -scheduled Haldol 5 mg Q8H, hold for sedation -will continue to monitor closely 01/16 -Mental status has improved 3. Acute on Chronic Respiratory Failure, Hypoxia -supplemental oxygen as needed -at baseline patient uses 2L NC at night when sleeping 01/12 -acute decompensation overnight -pt now on Vapotherm FiO2 50%, 20L by high flow nasal cannula -acute on chronic resp failure 01/13 -remains on Vapotherm FiO2 50%, 20L high flow nasal cannula 01/14 -pt weaned down to NC over the course of yesterday -when initially seen this morning, end tidal CO2 low unless very painful stimuli given and patient taking extremely shallow breaths -ABG shows need for escalation of therapy, patient placed on bipap per Dr. Juarez's orders -will defer pulmonary management to Dr. Juarez -while patient on BiPap, PO medication discontinued and IV or SQ medication substituted 01/15 currently on BiPAP 01/16 currently on nasal cannula oxygen and at times room air 4. Atrial Fibrillation 01/14 -pt had afib with rvr yesterday, given 20 mg cardizem IVP x1 and returned to sinus rhythm; pt with history of afib with rvr. -no symptoms with afib, first diagnosed episode was in Oct 2017, but suspect that patient has had this for much longer as he is asymptomatic when it occurs -this AM he is in afib but rate controlled; PO meds being held, will order IV medication and plan to use cardizem as it has proven to work well for patient 01/15 rate controlled 01/16 rate controlled and he will need to be switched to oral medications 5. Miosis 01/14 -pt with ~1 mm pupils bilaterally -likely secondary to fentanyl received earlier today -reassess tomorrow 6. Lactic Acidosis, resolved 3.65->2.18->0.86 s/p 3L IVF 7. COPD -nebulizers -supplemental oxygen as needed -tobacco cessation encouraged 8. Weakness -patient reports that he is having a lot of difficulty taking care of himself at home since his -will consult OT, PT, and Social Work when clinical condition improves to evaluate/treat 01/14 -pt with acute decompensation overnight; social work notified that consult for placement after discharge can wait as patient has significantly worsened and is not able to converse with them at this time -will let social work know when patient is able to speak with them about placement after discharge -patient's family was up to see him in the afternoon and was talked to by nursing staff - two brothers and their wives who live locally, and are very relieved that patient has requested placement after discharge, as they also state that patient is unable to care for himself at home and he is not living in a safe situation 9. Rheumatoid Arthritis -continue home pain medications 01/14 -hold PO meds while on bipap, has PRN IV medication if needed; once off bipap resume PO medication -PO medications remain ordered with hold parameters 10. Lung Nodules -pt was admitted 10/2017 for afib with RVR, CT with contrast showed multiple lung nodules and PET was recommended for further evaluation; as far as I can tell this has not been done yet; not appropriate currently as patient is acutely ill, but will need close follow up -follow up as outpatient for recommended PET, patient at high risk for lung cancer 11. Diastolic Heart Failure, Preserved EF -echo done 10/2017, EF 55% and grade I diastolic failure 12. Ascending Aortic Aneurysm -4 cm in Oct 2017 FEN: Heart Healthy Diet; NPO while on bipap DVT Ppx: Lovenox Dispo: Patient acutely ill with acute decompensation overnight. Patient continues to require an ICU level of care and is at high risk for further decompensation. Patient expressed when he was awake and alert on multiple occasions that if he deteriorates he desires intubation ONLY for his acute illness. NO CHEST COMPRESSIONS. CODE STATUS: DNR Clinical Quality Measures DVT/VTE Risk/Contraindication: Risk Factor Score Per Nursin RFS Level Per Nursing on Admit: 4+=Very High ILYA MARIA MD Jan 16, 2018 08:26
--- NOTE | 2018-01-16 09:36 | Diagnostic Imaging Report ---
INDICATION: Dyspnea. COMPARISON: 01/15/2018 FINDINGS: Heart size is normal. There are bibasilar infiltrates, left greater than right. There is a left pleural effusion. There is no pneumothorax. The mediastinum is unremarkable. There is minimal patchy infiltrate in the right upper lobe. There is mild venous congestion. IMPRESSION: Bibasilar infiltrates, left greater than right. There is a left pleural effusion. There is also patchy right upper lobe infiltrate. Mild central pulmonary venous congestion. Dictated by: Dictated on workstation # [id number]
[2018-01-16] MEDS: CATHETER FLUSH 10 ML SYR IV PRN (09:56)
[2018-01-16] MEDS: PANTOPRAZOLE 40 MG/10 ML (PROTONIX) VIAL IV SCH (09:56)
[2018-01-16] MEDS: cefTRIAXone INJECTION 2,000 MG in NS (IVPB) 50 ML IV SCH (09:56)
[2018-01-16] MEDS: lisINopril 20 MG (PRINIVIL) TABLET PO SCH (09:57)
[2018-01-16] MEDS: DILTIAZEM 120 MG (CARDIZEM CD) CAP PO SCH (09:57)
[2018-01-16] MEDS: morphine ER 15 MG (MS CONTIN) TAB PO SCH ×3 (09:57→20:22)
[2018-01-16] MEDS: MELOXICAM 7.5 MG (MOBIC) TABLET PO SCH (09:57)
[2018-01-16] MEDS: risperiDONE 1 MG (RisperDAL) TAB PO SCH ×2 (09:57→20:22)
[2018-01-16] MEDS: meTOproloL SUCCINATE 50 MG (TOPROL XL) TAB PO SCH (09:57)
[2018-01-16] MEDS ORDERED: HYDROcodone/APAP 10 MG/325 MG (LORTAB) TAB PO PRN (15:30)
[2018-01-16] MEDS: HYDROcodone/APAP 10 MG/325 MG (LORTAB) TAB PO PRN (16:09)
[2018-01-16] MEDS: ENOXAPARIN 40 MG/0.4 ML (LOVENOX) SYR SC SCH (20:22)
[2018-01-16] MEDS: ATORVASTATIN 10 MG (LIPITOR) TABLET PO SCH (20:22)
[2018-01-17] VITALS (30 sets, daily range): BP systolic 85–140; BP diastolic 54–93
[2018-01-17] MEDS: LORazepam INJ 2 MG/ML (ATIVAN) VIAL IVP PRN (00:50)
[2018-01-17] MEDS ORDERED: DILTIAZEM 240 MG (CARDIZEM CD) CAP PO ONE (01:45)
[2018-01-17] MEDS: morphine ER 15 MG (MS CONTIN) TAB PO SCH ×4 (03:27→20:03)
[2018-01-17] MEDS ORDERED: meTOprolol 5 MG/5 ML (LOPRESSOR) VIAL ONE (03:29)
[2018-01-17] MEDS ORDERED: meTOprolol 5 MG/5 ML (LOPRESSOR) VIAL IV ONE (05:30)
[2018-01-17 06:04] LABS: BASOPHILS % (AUTO) 0 % (0-10); EOSINOPHILS # (AUTO) 0.1 10^3/uL (0.0-0.3); EOSINOPHILS % (AUTO) 1 % (0-10); HEMATOCRIT 37 % (40-54); HEMOGLOBIN 11.5 G/DL (13.3-17.7); LYMPHOCYTES # (AUTO) 1.1 X 10^3 (1.0-4.0); LYMPHOCYTES % (AUTO) 12 % (12-44); MEAN CORPUSCULAR HEMOGLOBIN 24 PG (25-34); MEAN CORPUSCULAR HGB CONC 31 G/DL (32-36); MEAN CORPUSCULAR VOLUME 76 FL (80-99); MEAN PLATELET VOLUME 9.6 FL (7.4-10.4); MONOCYTES # (AUTO) 0.7 X 10^3 (0.0-1.0); MONOCYTES % (AUTO) 8 % (0-12); NEUTROPHILS # (AUTO) 7.3 X 10^3 (1.8-7.8); NEUTROPHILS % (AUTO) 80 % (42-75); PLATELET COUNT 686 10^3/uL (130-400); RED BLOOD COUNT 4.88 10^6/uL (4.35-5.85); RED CELL DISTRIBUTION WIDTH 19.7 % (10.0-14.5); WHITE BLOOD COUNT 9.2 10^3/uL (4.3-11.0)
[2018-01-17 06:20] LABS: BUN/CREATININE RATIO 18; CALCIUM 7.8 MG/DL (8.5-10.1); CARBON DIOXIDE 27 MMOL/L (21-32); CHLORIDE 104 MMOL/L (98-107); CREATININE SERUM 0.51 MG/DL (0.60-1.30); GFR ESTIMATED > 60; GLUCOSE 114 MG/DL (70-105); POTASSIUM 3.8 MMOL/L (3.6-5.0); SODIUM 140 MMOL/L (135-145)
--- NOTE | 2018-01-17 06:36 | Pulmonary Progress Note ---
Subjective Time Seen by Provider: 06:34 Subjective/Events-last exam Pt transferred back up to ICU last night secondary to Afib RVR. Exam Exam Vital Signs Date Time Temp Pulse Resp B/P (MAP) Pulse Ox O2 Delivery O2 Flow Rate FiO2 01/17/18 06:00 134 13 96/82 (87) 96 Room Air 01/17/18 05:15 91 14 87/65 (72) 99 High Flow N/C 5.00 01/17/18 05:00 113 14 105/71 (82) 99 High Flow N/C 5.00 01/17/18 04:45 129 13 100/74 (83) 99 High Flow N/C 5.00 01/17/18 04:30 114 15 96/87 (90) 98 High Flow N/C 5.00 01/17/18 04:15 111 13 98/83 (88) 99 High Flow N/C 5.00 01/17/18 04:00 121 13 102/69 (80) 97 High Flow N/C 5.00 01/17/18 04:00 High Flow N/C 5.00 01/17/18 03:45 115 14 105/78 (87) 99 High Flow N/C 5.00 01/17/18 03:30 138 20 94/78 (83) 97 High Flow N/C 5.00 01/17/18 03:15 135 24 136/93 (107) 96 High Flow N/C 5.00 01/17/18 03:11 146 8 100/83 (89) 96 High Flow N/C 5.00 01/17/18 01:19 123 01/17/18 01:00 76 01/17/18 00:00 97.1 73 16 140/73 (95) 95 High Flow N/C 5.00 01/16/18 20:35 97.9 72 20 139/62 (87) 96 Nasal Cannula 5.00 01/16/18 20:25 Room Air 3.00 01/16/18 20:18 96 High Flow N/C 3.00 01/16/18 19:00 74 01/16/18 15:30 98.7 94 18 135/67 (89) 98 Nasal Cannula 6.00 01/16/18 14:47 96 High Flow N/C 3.00 01/16/18 13:00 75 20 121/71 (88) 98 High Flow N/C 6.00 01/16/18 12:01 97.3 High Flow N/C 6.00 01/16/18 12:00 High Flow N/C 6.00 01/16/18 12:00 72 18 153/85 (107) 98 High Flow N/C 6.00 01/16/18 11:00 78 18 171/92 (118) 96 High Flow N/C 6.00 01/16/18 10:43 92 High Flow N/C 6.00 01/16/18 10:00 74 19 169/98 (121) 95 High Flow N/C 6.00 01/16/18 09:00 75 21 161/95 (117) 96 High Flow N/C 6.00 01/16/18 09:00 High Flow N/C 6.00 01/16/18 08:30 97.8 High Flow N/C 4.00 01/16/18 08:00 Room Air 01/16/18 08:00 74 22 154/102 (119) 96 Room Air 01/16/18 07:05 Room Air 01/16/18 07:00 72 16 174/102 (126) 99 Room Air 01/16/18 07:00 72 I & O 01/17/18 07:00 Intake Total 600 ml Output Total 6875 ml Balance -6275 ml General Appearance: No Apparent Distress, WD/WN, Other (sedated) HEENT: PERRL/EOMI, TMs Normal Neck: Full Range of Motion, Normal Inspection Respiratory: No Accessory Muscle Use, No Respiratory Distress, Decreased Breath Sounds, Wheezing (faint wheeze) Cardiovascular: Regular Rate, Rhythm, Normal Peripheral Pulses Capillary Refill: Less Than 3 Seconds Peripheral Pulses: 1+ Dorsalis Pedis (R), 1+ Left Dors-Pedis (L), 2+ Radial Pulses (R), 2+ Radial Pulses (L) Gastrointestinal: normal bowel sounds, non tender, soft, No guarding, No rebound, No tenderness Extremity: Normal Capillary Refill, Normal Inspection Neurologic/Psychiatric: No Motor/Sensory Deficits, Depressed Affect Skin: Normal Color, Warm/Dry Results Lab Laboratory Tests 01/16/18 03:25 01/17/18 05:55 Assessment/Plan Assessment/Plan Admission Dx Pneumonia with sepsis - Strep pneumonia and Influenza -oxygen -Continue Zosyn Acute psychosis, agitation, - currently sedated on bipap -Rispiradol and PRN Haldol Q6 PRN -D/C Solumedrol Afib RVR -Now controlled. Consider increasing Lovenox to therapeutic dosing. Consider consultation with cardiology Hypoxia Dehydration with decreased UO Metabolic acidosis - IVF at 150 Acute on chronic respiratory failure COPDAE -SVNS -oxygen -D/C Solumedrol Hx of lung nodules -Pt needs a repeat CT scan of chest 6-8wks after patient recovers from pneumonia if nodules persist he needs out patient PET scan tobacco use -education PT can go back to 4th floor this afternoon if Afib is still controlled. His Sp02 is 92% on RA 232 Admission Status: Inpatient Order (span 2 midnights) Reason for Inpatient Admission: see below s Clinical Quality Measures DVT/VTE Risk/Contraindication: Risk Factor Score Per Nursin RFS Level Per Nursing on Admit: 4+=Very High TAVO GUALLPA DO Jan 17, 2018 06:36
[2018-01-17 06:58] LABS: MAGNESIUM 1.8 MG/DL (1.8-2.4); PHOSPHORUS 3.4 MG/DL (2.3-4.7)
--- NOTE | 2018-01-17 08:04 | Diagnostic Imaging Report ---
INDICATION: Pneumonia, atrial fibrillation, sepsis. COMPARISON STUDY: Chest from yesterday. FINDINGS: A portable upright view of the chest demonstrates stable mild cardiomegaly with increase in right basilar infiltrate. A small left effusion and left basilar infiltrates are stable. IMPRESSION: Stable cardiomegaly and small left pleural effusion and left basilar infiltrate. Right basilar infiltrate has worsened. Dictated by: Dictated on workstation # [id number]
--- NOTE | 2018-01-17 08:49 | Progress Note (SOAP) ---
DUY BERNARD MED STUDENT 01/17/18 0848: Subjective Subjective/Events-last exam Patient was transferred back to the ICU last night due to Afib with irregular pulse in 130's. Received diltiazem 240mg and metoprolol 10mg. Doing well this morning. He endorses shortness of air, denies chest pain or palpitations, feeling dizzy or lightheaded. He denies any pain and has no concerns at this time. Review of Systems Date Seen by Provider: Jan 17, 2018 Time Seen by Provider: 09:17 General: No Fatigue HEENT: No Head Aches Pulmonary: Dyspnea Cardiovascular: No: Chest Pain, Palpitations, Lt Headedness Gastrointestinal: No: Nausea, Vomiting, Diarrhea, Constipation Neurological: No: Weakness Objective Exam Last Set of Vital Signs Vital Signs Date Time Temp Pulse Resp B/P (MAP) Pulse Ox O2 Delivery O2 Flow Rate FiO2 01/17/18 08:00 109 16 106/72 (83) 91 Room Air 01/17/18 05:15 5.00 01/17/18 00:00 97.1 01/15/18 08:45 30 Capillary Refill : Less Than 3 Seconds I&O Intake and Output 01/17/18 00:00 Intake Total 600 ml Output Total 8125 ml Balance -7525 ml Intake Oral 500 ml IV Total 100 ml Output Urine Total 8125 ml General: Alert, Oriented X3, Cooperative, No Acute Distress HEENT: Atraumatic Lungs: Other (decreased breath sounds bilaterally, wheezes at lung bases) Heart: Other (tachycardic with irregularly irregular rhythm ) Abdomen: Normal Bowel Sounds, Soft, No Tenderness Extremities: No Edema, No Tenderness/Swelling Skin: No Rashes, No Significant Lesion Neuro: Normal Speech Psych/Mental Status: Mental Status NL Results/Procedures Lab Laboratory Tests 01/17/18 05:55 Microbiology 01/10/18 Blood Culture - Final, Complete No growth 01/10/18 MRSA Screen - Final, Complete MRSA not isolated Radiology CXR 01/17 @0645 IMPRESSION: Stable cardiomegaly and small left pleural effusion and left basilar infiltrate. Right basilar infiltrate has worsened. Assessment/Plan Assessment/Plan Admission Dx Sepsis, Streptococcus pneumoniae pneumonia, Influenza B Admission Status: Inpatient Order (span 2 midnights) Assessment & Plan 1. Sepsis, Pneumonia, Influenza B On admission WBC 42.2, HR 100, Resp 24, Temp 98.0, L acid 3.65 CXR bilateral basilar infiltrates Currently 20 bpm @ 92% on 2 L via NC, HR 92 Plan: - Continue Zosyn ... 01/17 -Rocephin day number 5 2. Altered Mental Status - resolved 01/14 -patient with acute decompensation overnight -steroid dose reduced per Dr. Juarez -scheduled Haldol 5 mg Q8H, hold for sedation -will continue to monitor closely 01/16 -Mental status has improved 3. Acute on Chronic Respiratory Failure, Hypoxia -supplemental oxygen as needed -at baseline patient uses 2L NC at night when sleeping 01/12 -acute decompensation overnight -pt now on Vapotherm FiO2 50%, 20L by high flow nasal cannula -acute on chronic resp failure ... 01/17 currently on nasal cannula oxygen and at times room air 4. Atrial Fibrillation 01/14 -pt had afib with rvr yesterday, given 20 mg cardizem IVP x1 and returned to sinus rhythm; pt with history of afib with rvr. -no symptoms with afib, first diagnosed episode was in Oct 2017, but suspect that patient has had this for much longer as he is asymptomatic when it occurs -this AM he is in afib but rate controlled; PO meds being held, will order IV medication and plan to use cardizem as it has proven to work well for patient 01/15 rate controlled 01/16 rate controlled and he will need to be switched to oral medications 01/17 re-admitted to ICU for Afib with pulse in 130's, given diltiazem 240mg and metoprolol 10mg, continues to have tachycardia and irregularly irregular rhythm. -Continue diltiazem and metoprolol with enoxaparin for ppx -Consult cardiology for recommendations 5. Miosis, resolved 01/14 -pt with ~1 mm pupils bilaterally -likely secondary to fentanyl received earlier today -reassess tomorrow 6. Lactic Acidosis, resolved 3.65->2.18->0.86 s/p 3L IVF 7. COPD -nebulizers -supplemental oxygen as needed -tobacco cessation encouraged 8. Weakness -patient reports that he is having a lot of difficulty taking care of himself at home since his -will consult OT, PT, and Social Work when clinical condition improves to evaluate/treat 01/14 -pt with acute decompensation overnight; social work notified that consult for placement after discharge can wait as patient has significantly worsened and is not able to converse with them at this time -will let social work know when patient is able to speak with them about placement after discharge -patient's family was up to see him in the afternoon and was talked to by nursing staff - two brothers and their wives who live locally, and are very relieved that patient has requested placement after discharge, as they also state that patient is unable to care for himself at home and he is not living in a safe situation 9. Rheumatoid Arthritis -continue home pain medications 01/14 -hold PO meds while on bipap, has PRN IV medication if needed; once off bipap resume PO medication -PO medications remain ordered with hold parameters 10. Lung Nodules -pt was admitted 10/2017 for afib with RVR, CT with contrast showed multiple lung nodules and PET was recommended for further evaluation; as far as I can tell this has not been done yet; not appropriate currently as patient is acutely ill, but will need close follow up -follow up as outpatient for recommended PET, patient at high risk for lung cancer 11. Diastolic Heart Failure, Preserved EF -echo done 10/2017, EF 55% and grade I diastolic failure 12. Ascending Aortic Aneurysm -4 cm in Oct 2017 FEN: Heart Healthy Diet DVT Ppx: Lovenox Dispo: Patient acutely ill with acute decompensation overnight. Patient continues to require an ICU level of care and is at high risk for further decompensation. Patient expressed when he was awake and alert on multiple occasions that if he deteriorates he desires intubation ONLY for his acute illness. NO CHEST COMPRESSIONS. CODE STATUS: DNR Clinical Quality Measures DVT/VTE Risk/Contraindication: Risk Factor Score Per Nursin RFS Level Per Nursing on Admit: 4+=Very High RADHA WILKES MD 01/17/18 1221: Objective Exam General: Alert, No Acute Distress Lungs: Other (decreased breath sounds bilaterally, wheezes at lung bases) Heart: Other (tachycardic with irregularly irregular rhythm ) Psych/Mental Status: Mental Status NL, Mood NL Supervisory-Addendum Brief Supervisory Addendum Patient seen and evaluated with MEDHAT Bernard, agree with documentation unless otherwise noted. Respiratory status improved now on day 5 of rocephin for streptococcal pneumonia, but continues with significant a fib with RVR with hypotension making rate control difficult, will consult Cardiology for further recommendations. Anticipate looking further into [facility] placement when heart rate controlled. DUY BERNARD MED STUDENT Jan 17, 2018 08:48 RADHA WILKES MD Jan 17, 2018 12:21
[2018-01-17] MEDS: meTOproloL SUCCINATE 50 MG (TOPROL XL) TAB PO SCH (08:56)
[2018-01-17] MEDS: PANTOPRAZOLE 40 MG/10 ML (PROTONIX) VIAL IV SCH (08:56)
[2018-01-17] MEDS: risperiDONE 1 MG (RisperDAL) TAB PO SCH ×2 (08:56→20:03)
[2018-01-17] MEDS: DILTIAZEM 120 MG (CARDIZEM CD) CAP PO SCH (08:56)
[2018-01-17] MEDS: cefTRIAXone INJECTION 2,000 MG in NS (IVPB) 50 ML IV SCH (08:57)
[2018-01-17] MEDS: NS IV 1000 ML 1,000 ML IV SCH ×2 (08:57→19:27)
[2018-01-17] MEDS: MELOXICAM 7.5 MG (MOBIC) TABLET PO SCH (08:58)
[2018-01-17] MEDS: CATHETER FLUSH 10 ML SYR IV PRN (08:59)
[2018-01-17] MEDS ORDERED: DILTIAZEM 120 MG (CARDIZEM CD) CAP PO SCH (09:00)
[2018-01-17] MEDS: RT-ALBUTEROL/IPRATROPIUM 3 ML (DUONEB) VIAL IH SCH ×4 (09:01→19:04)
[2018-01-17] MEDS: lisINopril 20 MG (PRINIVIL) TABLET PO SCH (09:12)
[2018-01-17] MEDS ORDERED: DILTIAZEM 240 MG (CARDIZEM CD) CAP PO NR (09:30)
[2018-01-17] MEDS: APIXABAN 5 MG (ELIQUIS) TABLET PO SCH ×2 (09:48→20:03)
--- NOTE | 2018-01-17 11:35 | Physical Therapy Daily Note ---
PT Daily Note-Current Subjective Patient is up in recliner with nursing and RT present. Pain Numeric Pain Scale: 0-No Pain Location: No Pain Reported Mental Status Patient Orientation: Confused Attachments: Oxygen, Villalobos Catheter, IV Transfers Functional [place] Measure 0=Not Assessed/NA 4=Minimal Assistance 1=Total Assistance 5=Supervision or Setup 2=Maximal Assistance 6=Modified [place] 3=Moderate Assistance 7=Complete IndependenceIRFPAI Quality Coding Scale 6 Independent with activity with or without an assistive device 5 Patient requires set up or clean up by helper. Patient completes activity by themselves 4 Supervision or touching assist (CGA). Forest provide cues , steadying assist 3 The helper provides less than half the effort to complete the activity 2 The helper provides more than half the effort to complete the activity 1 Dependent. The helper does all the effort to complete an activity 7 Patient refused to complete or attempt activity 9 The patient did not perform the activity before the current illness or injury 88 Not attempted due to Medical conditions or safety concerns Transfers (B, C, W/C) (FIM): 4 Scootin Rollin Supine to/from Sit: 5 Sit to/from Stand: 4 Bed to/from Chair: 4 CGA for safety Weight Bearing Right Lower Extremity: Right Full Weight Bearing Left Lower Extremity: Left Full Weight Bearing Gait Training Gait (FIM): 1 Distance (FIM): 1=up to 49 ft Distance: 25' Gait Level of Assist: 4 Gait Persons Needed: 2 Gait Assistive Device: FWW Patient is impulsive to sit with no chair or bed behind him. PT encouraged patient to return to recliner by ambulating and he then impulsively sat down. Assessment Patient improving with gross motor skills, however, unable to follow simple direction and appears to not have any safety awareness due to confusion. PT Short Term Goals Short Term Goals Time Frame: Jan 21, 2018 Transfers (B,C,W/C) (FIM): 2 Gait (FIM): 1 Distance (FIM): 1=up to 49 ft Gait Distance Comment: 15' Gait Level of Assist: 3 Gait Assistive Device: FWW PT Alf Goals Alf Goals PT Alf Goals Time Frame: Feb 04, 2018 Transfers (B,C,W/C) (FIM): 4 Gait (FIM): 2 Gait distance (FIM): 0=357-50 ft Distance: 75' Gait Level of Assist: 4 Gait Assistive Device: FWW PT Plan Treatment/Plan Treatment Plan: Continue Plan of Care Treatment Plan: Bed Mobility, Education, Functional Activity Jenifer, Functional Strength, Gait, Safety, Therapeutic Exercise, Transfers Treatment Duration: Feb 04, 2018 Frequency: 5 times per week Estimated Hrs Per Day: .25 hour per day Patient and/or Family Agrees t: Yes Time/GCodes Time In: 1055 Time Out: 1105 Total Billed Treatment Time: 10 Total Billed Treatment 1 visit FA 10 min MARA MAGANA PT Jan 17, 2018 11:35
--- NOTE | 2018-01-17 15:05 | Occ Therapy Progress Note ---
Therapy Progress Note RN states pt is very fatigued this pm and just got back to bed, but okay to attempt therapy. Pt resting in bed with eyes closed. Pt opens eyes and states he is tired and "can we do this tomorrow?" Will attempt to complete evaluation . Pt denies needs at this time. 1, visit SCARLET RODRIGUEZ OT Jan 17, 2018 15:04
--- NOTE | 2018-01-17 18:21 | Consultation-Cardiology ---
HPI-Cardiology Cardiology Consultation: Date of Consultation 01/17/18 Time Seen by Provider: 18:15 Date of Admission Attending Physician Gabby John DO Admitting Physician [place] Consulting Physician JELENA KELLEY MD, MA, FACP, FAC, [facility] HPI: Chief Complaint: Reason for consultation: A Fib with RVR HPI: 72 yo man admitted 01/11/18 to this hosp with increasing shortness of breath and hypoxia and diagnosed with pneumonia with sepsis. Has had PAF with RVR for which we have been called in consultation Currently, has some shortness of breath, but doesn't report cp or palp or syncope. Had had agitation and confusion earlier that has now resolved. Has chronic shortness of breath Review of Systems-Cardiology Review of Systems Constitutional: malaise, No weight loss, No weight gain Eyes: No vision change Ears/Nose/Throat: No ear discharge, No nasal drainage, No recent hearing loss Respiratory: As described under HPI Cardiovascular: As described under HPI Gastrointestinal: No diarrhea, No nausea, No vomiting Genitourinary: No dysuria Musculoskeletal: No back pain, No joint pain Skin: No rash, No ulcerations Psychiatric/Neurological: No seizure, No focal weakness Hematologic: No bleeding abnormalities MTH-[id number]-Scspah Hx Patient Social History Marrital Status: Living Status: Lives alone Employed/Student: retired Alcohol Use: Denies Use Recreational Drug Use: No Smoking Status: Current Everyday Smoker Type Used: Cigarettes Recent Foreign Travel: No Recent Infectious Disease Expo: No Hospitalization with Isolation: Denies Physical Abuse Screen: No Sexual Abuse: No Immunizations Up To Date Tetanus Booster (TDap): Unknown Past Medical History PMH As described under Assessment. Family Medical History Family History: Patient reports no known family medical history. Allergies and Home Medications Allergies Coded Allergies: No Known Drug Allergies (Unverified , 02/13/13) Home Medications Diltiazem HCl 120 Mg Cap.er.24h, 120 MG PO DAILY, (Reported) Esomeprazole Magnesium 40 Mg Cap, 40 MG PO DAILY, (Reported) Hydrocodone/Acetaminophen 1 Each Tablet, 1 TAB PO TID PRN for PAIN-MODERATE, ( Reported) Lisinopril 20 Mg Tablet, 20 MG PO DAILY, (Reported) Meloxicam 15 Mg Tablet, 15 MG PO DAILY, (Reported) Morphine Sulfate 15 Mg Tablet.er, 15 MG PO Q12H, (Reported) Pravastatin Sodium 40 Mg Tablet, 40 MG PO DAILY, (Reported) Physical Exam-Cardiology Physical Exam Vital Signs/I&O Vital Sign - Last 12Hours 01/17/18 01/17/18 01/17/18 01/17/18 07:00 07:00 08:00 08:15 Temp 97.2 Pulse 126 122 109 Resp 26 16 B/P (MAP) 100/75 (83) 106/72 (83) Pulse Ox 91 91 O2 Delivery Room Air Room Air High Flow N/C O2 Flow Rate 5.00 01/17/18 01/17/18 01/17/18 01/17/18 08:15 09:00 09:01 10:00 Pulse 122 137 Resp 17 25 B/P (MAP) 117/90 (99) 85/74 (78) Pulse Ox 97 96 93 O2 Delivery High Flow N/C High Flow N/C High Flow N/C High Flow N/C O2 Flow Rate 5.00 4.00 5.00 4.00 01/17/18 01/17/18 01/17/18 01/17/18 10:30 10:50 11:00 11:30 Pulse 98 Resp 19 B/P (MAP) 103/76 (85) 110/88 (95) Pulse Ox 97 97 O2 Delivery High Flow N/C High Flow N/C High Flow N/C O2 Flow Rate 5.00 4.00 4.00 01/17/18 01/17/18 01/17/18 01/17/18 11:30 12:00 13:00 13:00 Temp 97.4 Pulse 95 105 92 Resp 14 14 B/P (MAP) 94/65 (75) 109/75 (86) Pulse Ox 96 96 O2 Delivery High Flow N/C High Flow N/C High Flow N/C O2 Flow Rate 4.00 4.00 4.00 01/17/18 01/17/18 01/17/18 01/17/18 14:00 15:00 15:32 15:32 Temp 98.1 Pulse 89 82 Resp 13 10 B/P (MAP) 102/77 (85) 99/62 (74) Pulse Ox 94 96 O2 Delivery High Flow N/C High Flow N/C High Flow N/C High Flow N/C O2 Flow Rate 4.00 4.00 3.00 3.00 01/17/18 01/17/18 01/17/18 01/17/18 15:47 16:00 17:00 18:00 Pulse 80 60 86 Resp 19 14 17 B/P (MAP) 101/63 (76) 98/66 (77) 113/86 (95) Pulse Ox 93 93 96 95 O2 Delivery High Flow N/C High Flow N/C High Flow N/C High Flow N/C O2 Flow Rate 3.00 3.00 3.00 3.00 Intake and Output 01/17/18 00:00 Intake Total 400 ml Output Total 3325 ml Balance -2925 ml Capillary Refill : Less Than 3 Seconds Constitutional: AAO x 3, well-developed, well-nourished, other (thin-appearing) HEENT: PERRL, EOMI, hearing is well preserved, No xanthelasmas are seen Neck: No carotid bruit, carotid pulses are 2 + bilaterally, with good upstrokes Respiratory: No accessory muscle use, other (Fair air entry, diminished at the bases; basal coarse crackles; scattered rhonchi over large airways) Cardiovascular: irregularly irregular, S1 and S2, systolic murmur (soft RUDI at card base) Gastrointestinal: No tender, soft, No guarding, No rebound, audible bowel sounds Rectal: deferred Extremities: No clubbing, No cyanosis, No significant edema Neurologic/Psychiatric: grossly intact, power is 5/5 both on sides Skin: No rash on exposed areas, No ulcerations on exposed areas Data Review Labs Laboratory Tests 01/17/18 05:55: White Blood Count 9.2, Red Blood Count 4.88, Hemoglobin 11.5L, Hematocrit 37L, Mean Corpuscular Volume 76L, Mean Corpuscular Hemoglobin 24L, Mean Corpuscular Hemoglobin Concent 31L, Red Cell Distribution Width 19.7H, Platelet Count 686H, Mean Platelet Volume 9.6, Neutrophils (%) (Auto) 80H, Lymphocytes (%) (Auto) 12 , Monocytes (%) (Auto) 8, Eosinophils (%) (Auto) 1, Basophils (%) (Auto) 0, Neutrophils # (Auto) 7.3, Lymphocytes # (Auto) 1.1, Monocytes # (Auto) 0.7, Eosinophils # (Auto) 0.1, Basophils # (Auto) 0.0, Sodium Level 140, Potassium Level 3.8, Chloride Level 104, Carbon Dioxide Level 27, Anion Gap 9, Blood Urea Nitrogen 9, Creatinine 0.51L, Estimat Glomerular Filtration Rate > 60, BUN/ Creatinine Ratio 18, Glucose Level 114H, Calcium Level 7.8L, Phosphorus Level 3.4, Magnesium Level 1.8 Microbiology 01/10/18 Blood Culture - Final, Complete No growth 01/10/18 MRSA Screen - Final, Complete MRSA not isolated Laboratory Tests 01/16/18 03:25 01/17/18 05:55 A/P-Cardiology Assessment/Admission Diagnosis PAF with RVR Pneumonia with sepsis Acute exacerbation of COPD Acute psychosis, improved Rheumatoid arthritis Echo of 11/04/17: LVEF 55-65%, grade I wang dysfunction, RVSP 32 mmHg Admission Status: Inpatient Order (span 2 midnights) Reason for Inpatient Admission: see below Discussion and Recomendations * Long-acting dilt for vent rate control * Apixaban for stroke prophylaxis * Monitor labs Clinical Quality Measures DVT/VTE Risk/Contraindication: Risk Factor Score Per Nursin RFS Level Per Nursing on Admit: 4+=Very High JELENA KELLEY MD FACP FAC CCDS Jan 17, 2018 18:21
[2018-01-17] MEDS: ATORVASTATIN 10 MG (LIPITOR) TABLET PO SCH (20:03)
[2018-01-17] MEDS: HALOPERIDOL 5 MG/ML (HALDOL) AMP IV PRN (22:42)
[2018-01-18] VITALS (18 sets, daily range): BP systolic 97–163; BP diastolic 56–84
[2018-01-18] MEDS: morphine ER 15 MG (MS CONTIN) TAB PO SCH ×3 (04:10→21:00)
[2018-01-18] MEDS: morphine INJ 4 MG/ML 1 ML (VIAL/SYRINGE) IVP PRN (04:16)
[2018-01-18 04:19] LABS: BASOPHILS % (AUTO) 0 % (0-10); EOSINOPHILS # (AUTO) 0.2 10^3/uL (0.0-0.3); EOSINOPHILS % (AUTO) 3 % (0-10); HEMATOCRIT 32 % (40-54); HEMOGLOBIN 9.6 G/DL (13.3-17.7); LYMPHOCYTES # (AUTO) 1.1 X 10^3 (1.0-4.0); LYMPHOCYTES % (AUTO) 16 % (12-44); MEAN CORPUSCULAR HEMOGLOBIN 23 PG (25-34); MEAN CORPUSCULAR HGB CONC 30 G/DL (32-36); MEAN CORPUSCULAR VOLUME 77 FL (80-99); MEAN PLATELET VOLUME 9.8 FL (7.4-10.4); MONOCYTES # (AUTO) 0.5 X 10^3 (0.0-1.0); MONOCYTES % (AUTO) 8 % (0-12); NEUTROPHILS # (AUTO) 4.9 X 10^3 (1.8-7.8); NEUTROPHILS % (AUTO) 73 % (42-75); PLATELET COUNT 543 10^3/uL (130-400); RED CELL DISTRIBUTION WIDTH 19.5 % (10.0-14.5); WHITE BLOOD COUNT 6.7 10^3/uL (4.3-11.0)
[2018-01-18 04:42] LABS: BUN/CREATININE RATIO 22; CALCIUM 7.7 MG/DL (8.5-10.1); CARBON DIOXIDE 27 MMOL/L (21-32); CHLORIDE 107 MMOL/L (98-107); CREATININE SERUM 0.55 MG/DL (0.60-1.30); GFR ESTIMATED > 60; GLUCOSE 123 MG/DL (70-105); MAGNESIUM 1.8 MG/DL (1.8-2.4); PHOSPHORUS 3.3 MG/DL (2.3-4.7); POTASSIUM 3.9 MMOL/L (3.6-5.0); SODIUM 140 MMOL/L (135-145)
[2018-01-18] MEDS: NS IV 1000 ML 1,000 ML IV SCH (05:30)
--- NOTE | 2018-01-18 07:15 | Diagnostic Imaging Report ---
INDICATION: A. fib, sepsis and influenza. Comparison made with prior examination 01/17/2018. FINDINGS: Heart size normal. There is some venous congestion. There are bibasilar infiltrates. There are small bilateral pleural effusions. There is no pneumothorax. Mediastinum is unremarkable. IMPRESSION: Persistent bibasilar pulmonary infiltrates with some central pulmonary venous congestion. Dictated by: Dictated on workstation # [id number]
[2018-01-18] MEDS: RT-ALBUTEROL/IPRATROPIUM 3 ML (DUONEB) VIAL IH SCH ×4 (07:26→19:41)
--- NOTE | 2018-01-18 08:28 | Progress Note-Cardiology ---
Cardiology SOAP Progress Note Subjective: In bed. States he feels good this morning and wants to go home today. No c/o CP, palpitations. Reports chronic mild to mod dyspnea which he feels is at his usual baseline. Objective: I&O/Vital Signs Vital Sign - Last 12Hours 01/18/18 01/18/18 01/18/18 01/18/18 06:00 07:00 07:00 07:27 Pulse 51 54 52 Resp 9 28 B/P (MAP) 138/72 (94) 163/84 (110) Pulse Ox 96 99 96 O2 Delivery High Flow N/C High Flow N/C High Flow N/C O2 Flow Rate 3.00 3.00 3.00 01/18/18 01/18/18 01/18/18 01/18/18 08:00 08:00 08:00 09:00 Temp 97.8 Pulse 54 57 Resp 10 9 B/P (MAP) 145/76 (99) 161/78 (105) Pulse Ox 97 O2 Delivery High Flow N/C High Flow N/C High Flow N/C High Flow N/C O2 Flow Rate 3.00 3.00 3.00 3.00 01/18/18 01/18/18 01/18/18 01/18/18 09:52 10:00 11:00 12:00 Pulse 58 58 Resp 21 25 B/P (MAP) 138/72 (94) 127/72 (90) O2 Delivery High Flow N/C High Flow N/C High Flow N/C High Flow N/C O2 Flow Rate 3.00 3.00 3.00 3.00 01/18/18 01/18/18 13:00 16:20 Pulse 56 O2 Delivery High Flow N/C O2 Flow Rate 3.00 Intake and Output 01/18/18 00:00 Intake Total 340 ml Output Total 1100 ml Balance -760 ml Weight (Pounds): 146 Weight (Ounces): 8.0 Weight (Calculated Kilograms): [id number] Constitutional: AAO x 3, well-developed, well-nourished, other (thin-appearing) Respiratory: No accessory muscle use, other (Fair air entry, diminished at the bases; basal coarse crackles; scattered rhonchi over large airways) Cardiovascular: regular rate-rhythm, S1 and S2, systolic murmur (soft RUDI at card base) Gastrointestional: No tender, soft, No guarding, No rebound, audible bowel sounds Extremities: No clubbing, No cyanosis, no lower extremity edema bilateral, No significant edema Neurologic/Psychiatric: grossly intact, power is 5/5 both on sides Skin: No rash on exposed areas, No ulcerations on exposed areas Results/Procedures: Labs Laboratory Tests 01/18/18 04:05: White Blood Count 6.7, Red Blood Count 4.10L, Hemoglobin 9.6L, Hematocrit 32L, Mean Corpuscular Volume 77L, Mean Corpuscular Hemoglobin 23L, Mean Corpuscular Hemoglobin Concent 30L, Red Cell Distribution Width 19.5H, Platelet Count 543H, Mean Platelet Volume 9.8, Neutrophils (%) (Auto) 73, Lymphocytes (%) (Auto) 16, Monocytes (%) (Auto) 8, Eosinophils (%) (Auto) 3, Basophils (%) (Auto) 0, Neutrophils # (Auto) 4.9, Lymphocytes # (Auto) 1.1, Monocytes # (Auto) 0.5, Eosinophils # (Auto) 0.2, Basophils # (Auto) 0.0, Sodium Level 140, Potassium Level 3.9, Chloride Level 107, Carbon Dioxide Level 27, Anion Gap 6, Blood Urea Nitrogen 12, Creatinine 0.55L, Estimat Glomerular Filtration Rate > 60, BUN/ Creatinine Ratio 22, Glucose Level 123H, Calcium Level 7.7L, Phosphorus Level 3.3, Magnesium Level 1.8 Microbiology 01/10/18 Blood Culture - Final, Complete No growth 01/10/18 MRSA Screen - Final, Complete MRSA not isolated Procedures NAME: SAIDA ARCEO [facility] REC#: [id number] PT STATUS: ADM IN : 1945 PHYSICIAN: TAVO GUALLPA DO ADMIT DATE: 01/10/18/ICU Signed Date of Exam: 01/18/18 CHEST 1 VIEW, AP/PA ONLY INDICATION: A. fib, sepsis and influenza. Comparison made with prior examination 01/17/2018. FINDINGS: Heart size normal. There is some venous congestion. There are bibasilar infiltrates. There are small bilateral pleural effusions. There is no pneumothorax. Mediastinum is unremarkable. IMPRESSION: Persistent bibasilar pulmonary infiltrates with some central pulmonary venous congestion. Dictated by: Dictated on workstation # [id number] Dict: 01/18/1852 Trans: 01/18/18731 Interpreted by: ANITRA SANTOS MD Electronically signed by: ANITRA SANTOS MD 01/18/1832 A/P: Assessment: PAF with RVR - converted to SR with a controlled rate Pneumonia with sepsis - management per medical/pulmonary services Acute exacerbation of COPD Acute psychosis, improved Rheumatoid arthritis Echo of 11/04/17: LVEF 55-65%, grade I wang dysfunction, RVSP 32 mmHg Tobaccoism - cessation advised Plan: * Continue long-acting dilt for vent rate control - he is currently SR at the time of this examination with a controlled rate * Continue apixaban for stroke prophylaxis * Monitor labs Physician Assessment Physician Assessment No cp or palp or syncope. Has not been reporting shortness of breath today Lungs: fair to good bilat air entry Cor: irreg Ext: no c/c/e A&R * As documented in our note above that I updated (italics) at the time of this writing * Continue current card regimen * Monitor labs SANTY CORNEJO [employer] SALES REPRESENTATIVE Jan 18, 2018 08:28 JELENA KELLEY MD FACP FAC CCDS Jan 18, 2018 17:34
[2018-01-18] MEDS: cefTRIAXone INJECTION 2,000 MG in NS (IVPB) 50 ML IV SCH (09:40)
[2018-01-18] MEDS: PANTOPRAZOLE 40 MG/10 ML (PROTONIX) VIAL IV SCH (09:40)
[2018-01-18] MEDS: MELOXICAM 7.5 MG (MOBIC) TABLET PO SCH (09:41)
[2018-01-18] MEDS: APIXABAN 5 MG (ELIQUIS) TABLET PO SCH ×2 (09:42→21:00)
[2018-01-18] MEDS: lisINopril 20 MG (PRINIVIL) TABLET PO SCH (09:42)
[2018-01-18] MEDS: risperiDONE 1 MG (RisperDAL) TAB PO SCH (09:42)
[2018-01-18] MEDS: DILTIAZEM 180 MG (CARDIZEM CD) CAP PO SCH (09:44)
--- NOTE | 2018-01-18 10:38 | Progress Note (SOAP) ---
DUY BERNARD MED STUDENT 01/18/18 10:38am: Subjective Subjective/Events-last exam Patient is doing well this morning, still endorses some shortness of air but reports this as baseline. Denies chest pain, palpitations, dizziness, or lightheadedness. He reports that he has been up to his chair and back to bed but otherwise has not been ambulating much. No concerns today. Review of Systems Date Seen by Provider: Jan 18, 2018 Time Seen by Provider: 09:34 General: Fatigue HEENT: No Head Aches Pulmonary: Dyspnea, Cough Cardiovascular: No: Chest Pain, Palpitations, Edema, Lt Headedness Gastrointestinal: No: Nausea, Vomiting, Abdominal Pain, Diarrhea, Constipation Genitourinary: No Dysuria Musculoskeletal: No: back pain Neurological: No: Weakness Objective Exam Last Set of Vital Signs Vital Signs Date Time Temp Pulse Resp B/P (MAP) Pulse Ox O2 Delivery O2 Flow Rate FiO2 01/18/18 09:52 High Flow N/C 3.00 01/18/18 08:00 97.8 01/18/18 07:27 96 01/18/18 07:00 54 01/18/18 06:00 9 138/72 (94) 01/15/18 08:45 30 Capillary Refill : Less Than 3 Seconds I&O Intake and Output 01/18/18 00:00 Intake Total 1490 ml Output Total 4700 ml Balance -3210 ml Intake Oral 440 ml IV Total 1050 ml Output Urine Total 4700 ml General: Alert, No Acute Distress HEENT: Atraumatic Lungs: Other (decreased breath sounds bilaterally) Heart: Regular Rate Abdomen: Normal Bowel Sounds, Soft, No Tenderness Extremities: No Edema Psych/Mental Status: Mental Status NL Results/Procedures Lab Laboratory Tests 01/18/18 04:05 Laboratory Tests 01/18/18 04:05: White Blood Count 6.7, Red Blood Count 4.10L, Hemoglobin 9.6L, Hematocrit 32L, Mean Corpuscular Volume 77L, Mean Corpuscular Hemoglobin 23L, Mean Corpuscular Hemoglobin Concent 30L, Red Cell Distribution Width 19.5H, Platelet Count 543H, Mean Platelet Volume 9.8, Neutrophils (%) (Auto) 73, Lymphocytes (%) (Auto) 16, Monocytes (%) (Auto) 8, Eosinophils (%) (Auto) 3, Basophils (%) (Auto) 0, Neutrophils # (Auto) 4.9, Lymphocytes # (Auto) 1.1, Monocytes # (Auto) 0.5, Eosinophils # (Auto) 0.2, Basophils # (Auto) 0.0, Sodium Level 140, Potassium Level 3.9, Chloride Level 107, Carbon Dioxide Level 27, Anion Gap 6, Blood Urea Nitrogen 12, Creatinine 0.55L, Estimat Glomerular Filtration Rate > 60, BUN/ Creatinine Ratio 22, Glucose Level 123H, Calcium Level 7.7L, Phosphorus Level 3.3, Magnesium Level 1.8 Microbiology 01/10/18 Blood Culture - Final, Complete No growth 01/10/18 MRSA Screen - Final, Complete MRSA not isolated Radiology 01/18 @03:10 IMPRESSION: Persistent bibasilar pulmonary infiltrates with some central pulmonary venous congestion. Assessment/Plan Assessment/Plan Admission Dx Sepsis, Streptococcus pneumoniae pneumonia, Influenza B Admission Status: Inpatient Order (span 2 midnights) Assessment & Plan 1. Sepsis, Pneumonia, Influenza B On admission WBC 42.2, HR 100, Resp 24, Temp 98.0, L acid 3.65 CXR bilateral basilar infiltrates ... 01/17: Rocephin day number 5 01/18: Rocephin day 6, day 8 of Abx (2 days of Zosyn prior to narrowing). WBC 6.7 , afebrile. -D/c Abx when transfer to floor. 2. Altered Mental Status - resolved 01/14 -patient with acute decompensation overnight -steroid dose reduced per Dr. Juarez -scheduled Haldol 5 mg Q8H, hold for sedation -will continue to monitor closely 01/16: Mental status has improved 3. Acute on Chronic Respiratory Failure, Hypoxia -supplemental oxygen as needed -at baseline patient uses 2L NC at night when sleeping 01/12 -acute decompensation overnight -pt now on Vapotherm FiO2 50%, 20L by high flow nasal cannula -acute on chronic resp failure ... 01/17 currently on nasal cannula oxygen and at times room air 4. Atrial Fibrillation 01/14 -pt had afib with rvr yesterday, given 20 mg cardizem IVP x1 and returned to sinus rhythm; pt with history of afib with rvr. -no symptoms with afib, first diagnosed episode was in Oct 2017, but suspect that patient has had this for much longer as he is asymptomatic when it occurs -this AM he is in afib but rate controlled; PO meds being held, will order IV medication and plan to use cardizem as it has proven to work well for patient 01/15 rate controlled 01/16 rate controlled and he will need to be switched to oral medications 01/17 re-admitted to ICU for Afib with pulse in 130's, given diltiazem 240mg and metoprolol 10mg, continues to have tachycardia and irregularly irregular rhythm. -Continue diltiazem and metoprolol with enoxaparin for ppx -Consult cardiology for recommendations 01/18: -Cardiology - long acting diltiazem 360mg, apixaban 5mg for stroke Ppx, metoprolol 25mg -Pulse has been more regular but some bradycardia 5. Miosis, resolved 01/14 -pt with ~1 mm pupils bilaterally -likely secondary to fentanyl received earlier today -reassess tomorrow 6. Lactic Acidosis, resolved 3.65->2.18->0.86 s/p 3L IVF 7. COPD -nebulizers -supplemental oxygen as needed -tobacco cessation encouraged 8. Weakness -patient reports that he is having a lot of difficulty taking care of himself at home since his -will consult OT, PT, and Social Work when clinical condition improves to evaluate/treat 01/14 -pt with acute decompensation overnight; social work notified that consult for placement after discharge can wait as patient has significantly worsened and is not able to converse with them at this time -will let social work know when patient is able to speak with them about placement after discharge -patient's family was up to see him in the afternoon and was talked to by nursing staff - two brothers and their wives who live locally, and are very relieved that patient has requested placement after discharge, as they also state that patient is unable to care for himself at home and he is not living in a safe situation 01/18 -social work consulted, looking for placement at [facility] 9. Rheumatoid Arthritis -continue home pain medications 01/14 -hold PO meds while on bipap, has PRN IV medication if needed; once off bipap resume PO medication -PO medications remain ordered with hold parameters 10. Lung Nodules -pt was admitted 10/2017 for afib with RVR, CT with contrast showed multiple lung nodules and PET was recommended for further evaluation; as far as I can tell this has not been done yet; not appropriate currently as patient is acutely ill, but will need close follow up -follow up as outpatient for recommended PET, patient at high risk for lung cancer 11. Diastolic Heart Failure, Preserved EF -echo done 10/2017, EF 55% and grade I diastolic failure 12. Ascending Aortic Aneurysm -4 cm in Oct 2017 FEN: Heart Healthy Diet DVT Ppx: Eliquis Dispo: Transfer to floor. Patient expressed when he was awake and alert on multiple occasions that if he deteriorates he desires intubation ONLY for his acute illness. NO CHEST COMPRESSIONS. CODE STATUS: DNR Clinical Quality Measures DVT/VTE Risk/Contraindication: Risk Factor Score Per Nursin RFS Level Per Nursing on Admit: 4+=Very High RADHA WILKES MD 01/18/18 11:49am: Objective Exam General: Alert, No Acute Distress Lungs: Other (decreased breath sounds bilaterally) Heart: Other (occasional irregular beat) Neuro: Normal Speech Psych/Mental Status: Mental Status NL, Mood NL Assessment/Plan Assessment/Plan Assessment & Plan Agree with plan as documented by MEDHAT Bernard, will change risperdal to prn to try to minimize medications. Supervisory-Addendum Brief Supervisory Addendum I personally evaluated and examined this patient today with MEDHAT Bernard and agree with documentation unless otherwise noted. DUY BERNARD MED STUDENT Jan 18, 2018 10:38 am RADHA WILKES MD Jan 18, 2018 11:49 am
--- NOTE | 2018-01-18 11:31 | Physical Therapy Daily Note ---
PT Daily Note-Current Subjective Patient is in bed and agrees to PT. Pain Numeric Pain Scale: 0-No Pain Location: No Pain Reported Mental Status Patient Orientation: Confused Attachments: Oxygen (3L), Villalobos Catheter, IV Transfers Functional [place] Measure 0=Not Assessed/NA 4=Minimal Assistance 1=Total Assistance 5=Supervision or Setup 2=Maximal Assistance 6=Modified [place] 3=Moderate Assistance 7=Complete IndependenceIRFPAI Quality Coding Scale 6 Independent with activity with or without an assistive device 5 Patient requires set up or clean up by helper. Patient completes activity by themselves 4 Supervision or touching assist (CGA). [place] provide cues , steadying assist 3 The helper provides less than half the effort to complete the activity 2 The helper provides more than half the effort to complete the activity 1 Dependent. The helper does all the effort to complete an activity 7 Patient refused to complete or attempt activity 9 The patient did not perform the activity before the current illness or injury 88 Not attempted due to Medical conditions or safety concerns Transfers (B, C, W/C) (FIM): 4 Scootin Rollin Supine to/from Sit: 5 Sit to/from Stand: 4 Bed to/from Chair: 4 Patient continues to be impulsive with transfers. Bed alarm was deactivated when assisting patient OOB. Chair alarm activated with patient up in recliner following treatment. Weight Bearing Right Lower Extremity: Right Full Weight Bearing Left Lower Extremity: Left Full Weight Bearing Gait Training Gait (FIM): 4 Distance (FIM): 3=150 ft Distance: 150' Gait Level of Assist: 4 Gait Assistive Device: FWW Patient requires skilled verbal instruction for body placement in FWW. Patient also requires redirection to remain on task. Extended UE's with FWW use. Assessment Patient tolerated treatment well and is up in recliner with chair alarm activated for safety. Patient progressing slowly. PT Short Term Goals Short Term Goals Time Frame: Jan 21, 2018 Transfers (B,C,W/C) (FIM): 2 Gait (FIM): 1 Distance (FIM): 1=up to 49 ft Gait Distance Comment: 15' Gait Level of Assist: 3 Gait Assistive Device: FWW PT Residential Goals Residential Goals PT Ostomy Rn Goals Time Frame: Feb 04, 2018 Transfers (B,C,W/C) (FIM): 4 Gait (FIM): 2 Gait distance (FIM): 3=962-96 ft Distance: 75' Gait Level of Assist: 4 Gait Assistive Device: FWW PT Plan Treatment/Plan Treatment Plan: Continue Plan of Care Treatment Plan: Bed Mobility, Education, Functional Activity Jenifer, Functional Strength, Gait, Safety, Therapeutic Exercise, Transfers Treatment Duration: Feb 04, 2018 Frequency: 5 times per week Estimated Hrs Per Day: .25 hour per day Patient and/or Family Agrees t: Yes Time/GCodes Time In: 1035 Time Out: 1050 Total Billed Treatment Time: 15 Total Billed Treatment 1 visit GT 15 min MARA MAGANA PT Jan 18, 2018 11:30
--- NOTE | 2018-01-18 11:50 | Occupational Therapy Eval ---
OT Evaluation-General/PLF Medical Diagnosis Admission Date Jan 10, 2018 at 16:33 Medical Diagnosis: sepsis/influenza B Onset Date: Jan 10, 2018 Therapy Diagnosis Therapy Diagnosis: impaired self care skills Height/Weight Height (Feet): 5 Height (Inches): 10.00 Weight (Pounds): 146 Weight (Ounces): 8.0 Precautions Precautions/Isolations: Droplet Isolation, Fall Prevention, Pressure Ulcer Safety Interventions: Bed Exit Alarm, Reorient-PRN Referral Physician: Dora Medical History Pertinent Medical History: Atrial Fib, Arthritis, COPD (O2 dependent at home), CVA, Heart Failure, Rheumatoid Arthritis, Smoking Additional Medical History GERD, chronic pain, RA, AAA, lung nodules Reviewed History: Yes Social History Home: Single Level Current Living Status: Alone ADL-Prior Level of Function ADL PLOF Comments Pt states he is able to complete most basic self care. Has a [employer] worker 36 hours/wk to assist with housework and bathing as needed. Pt does not drive. Drive Self: No OT Current Status Subjective Pt sitting in chair, agrees to treatment. Pt has no c/o pain. Mental Status/Objective Patient Orientation: Person, Place Pt also able to state year and month Attachments: Villalobos Catheter, IV, Oxygen Current Glasses/Contacts: Yes Hearing Aids: No Dentures/Partials: Yes Hand Dominance: Right Upper Extremity ROM Grossly WFL Upper Extremity Coordination Fair Upper Extremity Strength Grossly 4-/5 ADL-Treatment ADL-Current Pt sitting in chair. UE assessment completed while seated. Pt participated in grooming tasks while in chair. Pt washed face with set up and increased time. Combed hair with minimal assistance. Pt states he was just up ambulating with PT and is tired. Pt sitting in chair with needs met and chair alarm in place after session. Functional [place] Measure 0=Not Assessed/NA 4=Minimal Assistance 1=Total Assistance 5=Supervision or Setup 2=Maximal Assistance 6=Modified [place] 3=Moderate Assistance 7=Complete IndependenceIRFPAI Quality Coding Scale 6 Independent with activity with or without an assistive device 5 Patient requires set up or clean up by helper. Patient completes activity by themselves 4 Supervision or touching assist (CGA). [place] provide cues , steadying assist 3 The helper provides less than half the effort to complete the activity 2 The helper provides more than half the effort to complete the activity 1 Dependent. The helper does all the effort to complete an activity 7 Patient refused to complete or attempt activity 9 The patient did not perform the activity before the current illness or injury 88 Not attempted due to Medical conditions or safety concerns Education OT Patient Education: Rehab process Teaching Recipient: Patient Teaching Methods: Discussion Response to Teaching: Reinforcement Needed OT Short Term Goals Short Term Goals 1=Demonstrate adherence to instructed precautions during ADL tasks. 2=Patient will verbalize/demonstrate understanding of assistive devices/ modifications for ADL. 3=Patient will improve strength/tolerance for activity to enable patient to perform ADL's. OT Mcfp Goals Fraud Representative Goals Time Frame: Feb 01, 2018 Eating (FIM): 6 Grooming(FIM): 5 Upper Body Dressing(FIM): 5 Lower Body Dressing(FIM): 4 Toilet/Commode Transfer(FIM): 5 Additional Goals: 2-Verbalize Understanding, 3-ImproveStrength/Jenifer 1=Demonstrate adherence to instructed precautions during ADL tasks. 2=Patient will verbalize/demonstrate understanding of assistive devices/ modifications for ADL. 3=Patient will improve strength/tolerance for activity to enable patient to perform ADL's. OT Education/Plan Problem List/Assessment Assessment: Decreased Activ Tolerance, Decreased Safety Aware, Decreased UE Strength, Dependent Transfers, Impaired I ADL's, Impaired Self-Care Skills Pt to benefit from skilled OT intervention for ADL training, transfers, strengthening, and safety education to maximize level of function and allow safe discharge plan. Discharge Recommendations Plan/Recommendations: Continue POC Treatment Plan/Plan of Care Treatment,Training & Education: Yes Patient would benefit from OT for education, treatment and training to promote independence in ADL's, mobility, safety and/or upper extremity function for ADL' s. Plan of Care: ADL Retraining, Functional Mobility, UE Funct Exercise/Act Treatment Duration: Feb 01, 2018 Frequency: 5 times per week Estimated Hrs Per Day: .25 hour per day Agreement: Yes Rehab Potential: Guarded Time/GCodes Start Time: 10:53 Stop Time: 11:05 Total Time Billed (hr/min): 12 Billed Treatment Time 1 visit, YASIR(12minutes) SCARLET RODRIGUEZ OT Jan 18, 2018 11:50
--- NOTE | 2018-01-18 12:50 | Pulmonary Progress Note ---
Subjective Time Seen by Provider: 12:48 Subjective/Events-last exam Pt is doing better is more alert today. Exam Exam Vital Signs Date Time Temp Pulse Resp B/P (MAP) Pulse Ox O2 Delivery O2 Flow Rate FiO2 01/18/18 11:00 58 25 127/72 (90) High Flow N/C 3.00 01/18/18 10:00 58 21 138/72 (94) High Flow N/C 3.00 01/18/18 09:52 High Flow N/C 3.00 01/18/18 09:00 57 9 161/78 (105) High Flow N/C 3.00 01/18/18 08:00 54 10 145/76 (99) 97 High Flow N/C 3.00 01/18/18 08:00 97.8 High Flow N/C 3.00 01/18/18 08:00 High Flow N/C 3.00 01/18/18 07:27 96 High Flow N/C 3.00 01/18/18 07:00 52 28 163/84 (110) 99 High Flow N/C 3.00 01/18/18 07:00 54 01/18/18 06:00 51 9 138/72 (94) 96 High Flow N/C 3.00 01/18/18 05:00 51 8 114/64 (81) 96 High Flow N/C 3.00 01/18/18 04:00 53 11 113/68 (83) 96 High Flow N/C 3.00 01/18/18 04:00 97.0 01/18/18 04:00 High Flow N/C 3.00 01/18/18 03:00 53 28 116/58 (77) 96 High Flow N/C 3.00 01/18/18 02:00 54 18 113/61 (78) 94 High Flow N/C 3.00 01/18/18 01:00 67 01/18/18 01:00 67 15 125/83 (97) 92 High Flow N/C 3.00 01/18/18 00:00 High Flow N/C 3.00 01/18/18 00:00 96.9 01/18/18 00:00 56 13 97/66 (76) 96 High Flow N/C 3.00 01/17/18 23:00 74 15 118/69 (85) 95 High Flow N/C 3.00 01/17/18 22:00 71 21 107/54 (71) 94 High Flow N/C 3.00 01/17/18 21:00 73 24 119/77 (91) 90 High Flow N/C 3.00 01/17/18 20:00 High Flow N/C 3.00 01/17/18 20:00 80 16 121/67 (85) 92 High Flow N/C 3.00 01/17/18 20:00 97.0 High Flow N/C 3.00 01/17/18 19:07 95 High Flow N/C 3.00 01/17/18 19:00 77 01/17/18 19:00 77 21 117/71 (86) 95 High Flow N/C 3.00 01/17/18 18:00 86 17 113/86 (95) 95 High Flow N/C 3.00 01/17/18 17:00 60 14 98/66 (77) 96 High Flow N/C 3.00 01/17/18 16:00 80 19 101/63 (76) 93 High Flow N/C 3.00 01/17/18 15:47 93 High Flow N/C 3.00 01/17/18 15:32 High Flow N/C 3.00 01/17/18 15:32 98.1 High Flow N/C 3.00 01/17/18 15:00 82 10 99/62 (74) 96 High Flow N/C 4.00 01/17/18 14:00 89 13 102/77 (85) 94 High Flow N/C 4.00 01/17/18 13:00 92 14 109/75 (86) 96 High Flow N/C 4.00 01/17/18 13:00 105 I & O 01/18/18 07:00 Intake Total 1540 ml Output Total 2450 ml Balance -910 ml General Appearance: No Apparent Distress, WD/WN HEENT: PERRL/EOMI, TMs Normal Neck: Full Range of Motion, Normal Inspection Respiratory: No Accessory Muscle Use, No Respiratory Distress, Decreased Breath Sounds Cardiovascular: Regular Rate, Rhythm, Normal Peripheral Pulses Capillary Refill: Less Than 3 Seconds Peripheral Pulses: 1+ Dorsalis Pedis (R), 1+ Left Dors-Pedis (L), 2+ Radial Pulses (R), 2+ Radial Pulses (L) Gastrointestinal: normal bowel sounds, non tender, soft, No guarding, No rebound, No tenderness Extremity: Normal Capillary Refill, Normal Inspection Neurologic/Psychiatric: No Motor/Sensory Deficits, Depressed Affect Skin: Normal Color, Warm/Dry Results Lab Laboratory Tests 01/17/18 05:55 01/18/18 04:05 Assessment/Plan Assessment/Plan Pneumonia with sepsis - Strep pneumonia and Influenza -oxygen -PT is now off Abx -No current leukocytosis, no fever Acute psychosis, agitation, - currently sedated on bipap -Rispiradol Q6 PRN -D/C Solumedrol -D/C haldol Afib RVR -Cardiology following Hypoxia Dehydration with decreased UO Metabolic acidosis - improving - IVF Acute on chronic respiratory failure COPDAE -SVNS -oxygen -D/C Solumedrol Hx of lung nodules -Pt needs a repeat CT scan of chest 6-8wks after patient recovers from pneumonia if nodules persist he needs out patient PET scan tobacco use -education 232 TAVO GUALLPA DO Jan 18, 2018 12:50
[2018-01-18] MEDS ORDERED: risperiDONE 1 MG (RisperDAL) TAB PO PRN (14:45)
[2018-01-18] MEDS: ATORVASTATIN 10 MG (LIPITOR) TABLET PO SCH (21:00)
[2018-01-19] VITALS: BP 147/66
[2018-01-19 03:52] VITALS: BP 130/64
[2018-01-19 05:52] LABS: BASOPHILS % (AUTO) 0 % (0-10); EOSINOPHILS # (AUTO) 0.2 10^3/uL (0.0-0.3); EOSINOPHILS % (AUTO) 3 % (0-10); HEMATOCRIT 33 % (40-54); HEMOGLOBIN 9.8 G/DL (13.3-17.7); LYMPHOCYTES # (AUTO) 1.2 X 10^3 (1.0-4.0); LYMPHOCYTES % (AUTO) 19 % (12-44); MEAN CORPUSCULAR HEMOGLOBIN 24 PG (25-34); MEAN CORPUSCULAR HGB CONC 30 G/DL (32-36); MEAN CORPUSCULAR VOLUME 79 FL (80-99); MEAN PLATELET VOLUME 9.9 FL (7.4-10.4); MONOCYTES # (AUTO) 0.5 X 10^3 (0.0-1.0); MONOCYTES % (AUTO) 7 % (0-12); NEUTROPHILS # (AUTO) 4.5 X 10^3 (1.8-7.8); NEUTROPHILS % (AUTO) 70 % (42-75); PLATELET COUNT 465 10^3/uL (130-400); RED BLOOD COUNT 4.16 10^6/uL (4.35-5.85); RED CELL DISTRIBUTION WIDTH 19.8 % (10.0-14.5); WHITE BLOOD COUNT 6.4 10^3/uL (4.3-11.0)
[2018-01-19 06:15] LABS: BUN/CREATININE RATIO 23; CALCIUM 7.7 MG/DL (8.5-10.1); CARBON DIOXIDE 26 MMOL/L (21-32); CHLORIDE 107 MMOL/L (98-107); CREATININE SERUM 0.52 MG/DL (0.60-1.30); GFR ESTIMATED > 60; GLUCOSE 138 MG/DL (70-105); SODIUM 141 MMOL/L (135-145)
[2018-01-19] MEDS ORDERED: PANTOPRAZOLE 40 MG (PROTONIX) TAB PO SCH (07:00)
[2018-01-19] MEDS: RT-ALBUTEROL/IPRATROPIUM 3 ML (DUONEB) VIAL IH SCH (07:30)
--- NOTE | 2018-01-19 07:54 | Pulmonary Progress Note ---
Subjective Time Seen by Provider: 07:56 Subjective/Events-last exam No complications noted. Exam Exam Vital Signs Date Time Temp Pulse Resp B/P (MAP) Pulse Ox O2 Delivery O2 Flow Rate FiO2 01/19/18 07:33 High Flow N/C 3.00 01/19/18 04:00 High Flow N/C 3.00 01/19/18 03:52 98.5 72 20 130/64 (86) 97 High Flow N/C 3.00 01/19/18 00:00 97.8 72 18 147/66 (93) 93 High Flow N/C 3.00 01/19/18 00:00 High Flow N/C 3.00 01/19/18 00:00 97.8 72 18 147/66 (93) 93 High Flow N/C 3.00 01/18/18 20:55 68 18 140/66 (90) 96 High Flow N/C 3.00 01/18/18 20:00 High Flow N/C 3.00 01/18/18 19:56 98.0 78 12 144/67 (92) 97 High Flow N/C 3.00 01/18/18 19:41 High Flow N/C 3.00 01/18/18 17:00 60 11 97 High Flow N/C 3.00 01/18/18 16:20 High Flow N/C 3.00 01/18/18 16:00 66 15 96 High Flow N/C 3.00 01/18/18 16:00 High Flow N/C 3.00 01/18/18 15:00 58 9 114/60 (78) 96 High Flow N/C 3.00 01/18/18 14:00 57 10 134/64 (87) High Flow N/C 3.00 01/18/18 13:00 56 01/18/18 13:00 56 11 114/66 (82) High Flow N/C 3.00 01/18/18 12:00 58 29 110/56 (74) High Flow N/C 3.00 01/18/18 12:00 High Flow N/C 3.00 01/18/18 11:00 58 25 127/72 (90) High Flow N/C 3.00 01/18/18 10:00 58 21 138/72 (94) High Flow N/C 3.00 01/18/18 09:52 High Flow N/C 3.00 01/18/18 09:00 57 9 161/78 (105) High Flow N/C 3.00 01/18/18 08:00 54 10 145/76 (99) 97 High Flow N/C 3.00 01/18/18 08:00 97.8 High Flow N/C 3.00 01/18/18 08:00 High Flow N/C 3.00 I & O 01/19/18 07:00 Intake Total 1040 ml Output Total 1350 ml Balance -310 ml General Appearance: No Apparent Distress, WD/WN HEENT: PERRL/EOMI, TMs Normal Neck: Full Range of Motion, Normal Inspection Respiratory: No Accessory Muscle Use, No Respiratory Distress, Decreased Breath Sounds Cardiovascular: Regular Rate, Rhythm, Normal Peripheral Pulses Capillary Refill: Less Than 3 Seconds Peripheral Pulses: 1+ Dorsalis Pedis (R), 1+ Left Dors-Pedis (L), 2+ Radial Pulses (R), 2+ Radial Pulses (L) Gastrointestinal: normal bowel sounds, non tender, soft Extremity: Normal Capillary Refill, Normal Inspection Neurologic/Psychiatric: No Motor/Sensory Deficits, Depressed Affect Skin: Normal Color, Warm/Dry Results Lab Laboratory Tests 01/18/18 04:05 01/19/18 05:25 Assessment/Plan Assessment/Plan Pneumonia with sepsis - Strep pneumonia and Influenza -oxygen -PT is now off Abx Acute psychosis, agitation, - - Pt is doing much better Afib RVR -Cardiology following Hypoxia Dehydration with decreased UO Acute on chronic respiratory failure COPDAE -SVNS -oxygen -D/C Solumedrol Hx of lung nodules -Pt needs a repeat CT scan of chest 6-8wks after patient recovers from pneumonia if nodules persist he needs out patient PET scan tobacco use -education I am going to sign off. Pt needs to f/u with me in office in 8wks after CT scan. He needs repeat CT as out patient without contrast in 8wks. 232 TAVO GUALLPA DO Jan 19, 2018 07:53
[2018-01-19 08:00] VITALS: BP 125/66
[2018-01-19] MEDS: APIXABAN 5 MG (ELIQUIS) TABLET PO SCH (08:43)
[2018-01-19] MEDS: DILTIAZEM 180 MG (CARDIZEM CD) CAP PO SCH (08:43)
[2018-01-19] MEDS: MELOXICAM 7.5 MG (MOBIC) TABLET PO SCH (08:43)
[2018-01-19] MEDS: lisINopril 20 MG (PRINIVIL) TABLET PO SCH (08:43)
[2018-01-19] MEDS: morphine ER 15 MG (MS CONTIN) TAB PO SCH (08:44)
--- NOTE | 2018-01-19 09:56 | Progress Note-Cardiology ---
Cardiology SOAP Progress Note Subjective: In bed. No c/o CP, SOB, palpitations, syncope or near syncope. Wants to go home. Objective: I&O/Vital Signs Vital Sign - Last 12Hours 01/19/18 01/19/18 01/19/18 01/19/18 00:00 00:00 00:00 03:52 Temp 97.8 97.8 98.5 Pulse 72 72 72 Resp 18 18 20 B/P (MAP) 147/66 (93) 147/66 (93) 130/64 (86) Pulse Ox 93 93 97 O2 Delivery High Flow N/C High Flow N/C High Flow N/C High Flow N/C O2 Flow Rate 3.00 3.00 3.00 3.00 01/19/18 01/19/18 01/19/18 04:00 07:33 08:00 Temp 97.4 Pulse 66 Resp 16 B/P (MAP) 125/66 (85) Pulse Ox 94 O2 Delivery High Flow N/C High Flow N/C High Flow N/C O2 Flow Rate 3.00 3.00 3.00 Intake and Output 01/19/18 00:00 Intake Total 840 ml Output Total 900 ml Balance -60 ml Weight (Pounds): 145 Weight (Ounces): 3.0 Weight (Calculated Kilograms): [id number] Constitutional: AAO x 3, well-developed, well-nourished, other (thin-appearing) Respiratory: No accessory muscle use, other (Fair air entry, diminished at the bases; basal coarse crackles; scattered rhonchi over large airways) Cardiovascular: regular rate-rhythm, S1 and S2, systolic murmur (soft RUDI at card base) Gastrointestional: No tender, soft, No guarding, No rebound, audible bowel sounds Extremities: No clubbing, No cyanosis, no lower extremity edema bilateral, No significant edema Neurologic/Psychiatric: grossly intact, power is 5/5 both on sides Skin: No rash on exposed areas, No ulcerations on exposed areas Results/Procedures: Labs Laboratory Tests 01/19/18 05:25: White Blood Count 6.4, Red Blood Count 4.16L, Hemoglobin 9.8L, Hematocrit 33L, Mean Corpuscular Volume 79L, Mean Corpuscular Hemoglobin 24L, Mean Corpuscular Hemoglobin Concent 30L, Red Cell Distribution Width 19.8H, Platelet Count 465H, Mean Platelet Volume 9.9, Neutrophils (%) (Auto) 70, Lymphocytes (%) (Auto) 19, Monocytes (%) (Auto) 7, Eosinophils (%) (Auto) 3, Basophils (%) (Auto) 0, Neutrophils # (Auto) 4.5, Lymphocytes # (Auto) 1.2, Monocytes # (Auto) 0.5, Eosinophils # (Auto) 0.2, Basophils # (Auto) 0.0, Sodium Level 141, Potassium Level 4.0, Chloride Level 107, Carbon Dioxide Level 26, Anion Gap 8, Blood Urea Nitrogen 12, Creatinine 0.52L, Estimat Glomerular Filtration Rate > 60, BUN/ Creatinine Ratio 23, Glucose Level 138H, Calcium Level 7.7L Microbiology 01/10/18 Blood Culture - Final, Complete No growth 01/10/18 MRSA Screen - Final, Complete MRSA not isolated A/P: Assessment: PAF with RVR - converted to SR with a controlled rate Pneumonia with sepsis - management per medical/pulmonary services Acute exacerbation of COPD Acute psychosis, improved Rheumatoid arthritis Echo of 11/04/17: LVEF 55-65%, grade I wang dysfunction, RVSP 32 mmHg Tobaccoism - cessation advised Plan: * Continue long-acting dilt for vent rate control - he is currently SR at the time of this examination with a controlled rate * Continue apixaban for stroke prophylaxis * Monitor labs SANTY CORNEJO Jan 19, 2018 09:55
[2018-01-19] MEDS ORDERED: DILT360C36 PO (10:45)
[2018-01-19] MEDS ORDERED: ATOR10TA66 PO (10:45)
[2018-01-19] MEDS ORDERED: MORP-33 PO (10:45)
[2018-01-19] MEDS ORDERED: IPRA3AMP IH (10:45)
[2018-01-19] MEDS ORDERED: APIX5TAB PO (10:45)
[2018-01-19] MEDS ORDERED: HYDR-753 PO (10:45)
[2018-01-19] MEDS ORDERED: METO-387 PO (10:45)
--- NOTE | 2018-01-19 10:47 | Discharge Inst-Skilled Nursing ---
Discharge Inst-Skilled NF Consult/Follow Up/Orders Skilled NF Admit to: [facility] Certifications SNF I certify that SNF services are required to be given on an inpatient basis because of the above named patient's need for care home care on a continuing basis for the conditions(s) for which he/she was receiving inpatient hospital services prior to his/her transfer to the SNF. [facility] Facility Order: Nursing Services, [employer] Bench-Evaluate & Treat, Physical Therapy-Evaluate & Treat Discharge Diet: Cardiac Diet Daily Activity as Tolerated: Yes New & Resume Previous Orders New & Resume Previous Orders Supplemental oxygen via nasal cannula at 3 lpm, wean as tolerated. Pneu Vac Indicated: Yes Discharge Medications New, Converted or Re-Newed RX: RX on Chart New Medications: Apixaban (Eliquis) 5 Mg Tablet 5 MG PO BID, #60 TAB 0 Refills Atorvastatin Calcium (Atorvastatin Calcium) 10 Mg Tablet 10 MG PO HS for 30 Days, #30 TAB 1 Refill Ipratropium/Albuterol Sulfate (Iprat-Albut 0.5-3(2.5) mg/3 ml) 3 Ml Ampul.neb 3 ML IH QID PRN for SHORTNESS OF BREATH, #300 ML 0 Refills Metoprolol Succinate (Metoprolol Succinate) 25 Mg Tab.er.24h 25 MG PO DAILY@1999, #30 TAB 0 Refills Changed Medications: Diltiazem HCl (Diltiazem 24Hr ER) 360 Mg Cap.er.24h 360 MG PO DAILY, #30 CAP 0 Refills (Changed from: Diltiazem HCl (Cartia Xt) 120 Mg Cap.er.24h 120 Mg PO DAILY) Continued Medications: Esomeprazole Magnesium (Nexium) 40 Mg Cap 40 MG PO DAILY, CAP Hydrocodone/Acetaminophen ([place] 10-325 Tablet) 1 Each Tablet 1 TAB PO TID PRN for PAIN-MODERATE, #90 TAB 0 Refills (This prescription has been renewed) Lisinopril (Lisinopril) 20 Mg Tablet 20 MG PO DAILY, TAB Morphine Sulfate (Morphine Sulfate ER) 15 Mg Tablet.er 15 MG PO Q12H, #60 TAB 0 Refills (This prescription has been renewed) Discontinued Medications: Meloxicam (Meloxicam) 15 Mg Tablet 15 MG PO DAILY, TAB Pravastatin Sodium (Pravastatin Sodium) 40 Mg Tablet 40 MG PO DAILY, TAB Radha N [place] Jan 19, 2018 10:45 RADHA WILKES MD Jan 19, 2018 10:47 am
--- NOTE | 2018-01-19 11:08 | Physical Therapy Daily Note ---
PT Daily Note-Current Subjective Pt sitting up in bed upon arrival. Pt agrees to PT. Pain Location: No Pain Reported Mental Status Patient Orientation: Person, Place Attachments: Oxygen (3L), Villalobos Catheter Transfers Functional [place] Measure 0=Not Assessed/NA 4=Minimal Assistance 1=Total Assistance 5=Supervision or Setup 2=Maximal Assistance 6=Modified [place] 3=Moderate Assistance 7=Complete IndependenceIRFPAI Quality Coding Scale 6 Independent with activity with or without an assistive device 5 Patient requires set up or clean up by helper. Patient completes activity by themselves 4 Supervision or touching assist (CGA). [place] provide cues , steadying assist 3 The helper provides less than half the effort to complete the activity 2 The helper provides more than half the effort to complete the activity 1 Dependent. The helper does all the effort to complete an activity 7 Patient refused to complete or attempt activity 9 The patient did not perform the activity before the current illness or injury 88 Not attempted due to Medical conditions or safety concerns Scootin Supine to/from Sit: 5 Sit to/from Stand: 4 Weight Bearing Right Lower Extremity: Right Full Weight Bearing Left Lower Extremity: Left Full Weight Bearing Gait Training Distance (FIM): 3=150 ft Distance: 150' Gait Level of Assist: 4 Gait Persons Needed: 1 Gait Assistive Device: FWW Pt is impulsive and needs redirection for sequencing and proper positioning within the FWW. Pt's gait is slow but steady. Treatments Pt transfers from Supine to EOB at [facility] then EOB to standing at [facility]. Pt uses restroom but not able to have BM. Pt ambulates in hallway using FWW at [facility] for safety. Pt returns to room and rests Supine in bed at end of tx with all needs met. Assessment Pt is impulsive and needs occasional redirection for safety. PT Short Term Goals Short Term Goals Time Frame: Jan 21, 2018 Gait (FIM): 1 Distance (FIM): 1=up to 49 ft Gait Distance Comment: 15' Gait Level of Assist: 3 Gait Assistive Device: FWW PT Operations Team Leader Goals Detention Goals PT Detention Goals Time Frame: Feb 04, 2018 Transfers (B,C,W/C) (FIM): 4 Gait (FIM): 2 Gait distance (FIM): 8=663-48 ft Distance: 75' Gait Level of Assist: 4 Gait Assistive Device: FWW PT Plan Problem List Problem List: Activity Tolerance, Safety, Balance, Gait Treatment/Plan Treatment Plan: Continue Plan of Care Treatment Plan: Bed Mobility, Education, Functional Activity Jenifer, Functional Strength, Gait, Safety, Therapeutic Exercise, Transfers Treatment Duration: Feb 04, 2018 Frequency: 5 times per week Estimated Hrs Per Day: .25 hour per day Patient and/or Family Agrees t: Yes Safety Risks/Education Patient Education: Gait Training, Transfer Techniques, Correct Positioning, Safety Issues Teaching Recipient: Patient Teaching Methods: Discussion Response to Teaching: Reinforcement Needed Time/GCodes Time In: 850 Time Out: 910 Total Billed Treatment Time: 20 Total Billed Treatment 1, GT (20m) ZUHAIR ROMAN PTA Jan 19, 2018 11:08
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
[2018-01-19 12:00] VITALS: BP 136/72
--- NOTE | 2018-01-19 12:02 | Occupational Ther Daily Note ---
OT Current Status-Daily Note Subjective Pt in bed, agrees to treatment. Pt has no c/o pain, states he is feeling better today. Mental Status/Objective Functional [place] Measure 0=Not Assessed/NA 4=Minimal Assistance 1=Total Assistance 5=Supervision or Setup 2=Maximal Assistance 6=Modified [place] 3=Moderate Assistance 7=Complete [place] ADL-Treatment Pt supine to sit with supervision. Pt completed grooming tasks while seated EOB. Pt combed hair and washed face with set up. Pt demonstrated ability to doff /don socks with SBA while seated EOB. Sit to stand with minimal assistance. Sidesteps to HOB with FWW, CGA for safety. Sit to supine with supervision. Pt resting in bed with needs met after session, bed alarm on. Pt states plan is to d/c to SNF today. Grooming (FIM): 5 OT Short Term Goals Short Term Goals 1=Demonstrate adherence to instructed precautions during ADL tasks. 2=Patient will verbalize/demonstrate understanding of assistive devices/ modifications for ADL. 3=Patient will improve strength/tolerance for activity to enable patient to perform ADL's. OT Script Supervisor Goals Snf Goals Time Frame: Feb 01, 2018 Eating (FIM): 6 Grooming(FIM): 5 Upper Body Dressing(FIM): 5 Lower Body Dressing(FIM): 4 Toilet/Commode Transfer(FIM): 5 Additional Goals: 2-Verbalize Understanding, 3-ImproveStrength/Jenifer 1=Demonstrate adherence to instructed precautions during ADL tasks. 2=Patient will verbalize/demonstrate understanding of assistive devices/ modifications for ADL. 3=Patient will improve strength/tolerance for activity to enable patient to perform ADL's. OT Education/Plan Problem List/Assessment Pt to benefit from skilled OT intervention for ADL training, transfers, strengthening, and safety education to maximize level of function and allow safe discharge plan. Discharge Recommendations Plan/Recommendations: Continue POC Treatment Plan/Plan of Care Patient would benefit from OT for education, treatment and training to promote independence in ADL's, mobility, safety and/or upper extremity function for ADL' s. Plan of Care: ADL Retraining, Functional Mobility, UE Funct Exercise/Act Treatment Duration: Feb 01, 2018 Frequency: 5 times per week Estimated Hrs Per Day: .25 hour per day Agreement: Yes Rehab Potential: Guarded Time/GCodes Start Time: 11:33 Stop Time: 11:44 Total Time Billed (hr/min): 11 Billed Treatment Time 1 visit, ADL(11minutes) SCARLET RODRIGUEZ OT Jan 19, 2018 12:02
== END 2018-01-19 14:05 | DRG 871 ==
LOC: EDUNIT# 14:56 → ER 14:58 → ICU 16:33 → 4TH 01-16 16:47 → ICU 01-17 03:10 → 4TH 01-18 17:45
PROVIDERS: ADMIT Family Medicine; ATTEND Family Medicine
DX: A40.3 Sepsis due to Streptococcus pneumoniae (principal); J10.08 Influenza due to other identified influenza virus with other specified pneumonia; J13 Pneumonia due to Streptococcus pneumoniae; J44.0 Chronic obstructive pulmonary disease with (acute) lower respiratory infection; J96.21 Acute and chronic respiratory failure with hypoxia; F23 Brief psychotic disorder; E87.2 Acidosis; Z66 Do not resuscitate; I48.0 Paroxysmal atrial fibrillation; I50.30 Unspecified diastolic (congestive) heart failure; E86.0 Dehydration; R53.1 Weakness; M06.9 Rheumatoid arthritis, unspecified; R91.8 Other nonspecific abnormal finding of lung field; I71.2 Thoracic aortic aneurysm, without rupture; H57.03 Miosis; I95.9 Hypotension, unspecified; F17.210 Nicotine dependence, cigarettes, uncomplicated; M19.91 Primary osteoarthritis, unspecified site; Z99.81 Dependence on supplemental oxygen; Z86.73 Personal history of transient ischemic attack (TIA), and cerebral infarction without residual deficits
CPT/HCPCS: 36415; 71045; 80048; 80053; 81000; 82805; 83605; 83735; 83880; 84100; 85007; 85025; 85027; 87040; 87077; 87081; 87804; 93005; 94640; 94660; 94760; 96361; 96374